=== PATIENT | female | born 1960 | race Caucasian/White ===

== ENCOUNTER → 2017-11-10 07:28 | Outpatient (CLI) | payer OTHER, SELFPAY | PROVIDERS: Family Provider Family Medicine; PCP Family Medicine; Visit Provider Nurse Practitioner Adult Health | DX: R31.9 Hematuria, unspecified (principal) | CPT/HCPCS: 74178; Q9967 ==

== ENCOUNTER → 2017-12-09 07:51 | Outpatient (CLI) | payer OTHER, SELFPAY ==
--- NOTE | 2017-12-09 07:52 | BI_ITS ---
MAMMOGRAPHY - BILATERAL SCREENING 3-D JONNIE SYNTHESIS REASON FOR EXAM: Female, 57 years old. Bilateral Screening 3-D tomosynthesis PERTINENT HISTORY: Left breast aspiration 2008. Maternal grandmother age 65. TECHNIQUE: 2-D mammograms and 3-D Jonnie synthesis of the breast (s) were performed. CAD was performed. COMPARISON: 11/30/2016 through 09/13/2014. FINDINGS: The breast composition is composed of scattered fibroglandular density. Scattered benign appearing calcifications are seen. No dense spiculated masses or suspicious microcalcification cluster are identified. No architectural distortion or asymmetric density is identified. There is no skin thickening or nipple retraction identified. There has been no significant change identified since the prior study. BI/SCREENING MAMM (CAD), BILAT IMPRESSION: No mammographic sign of malignancy. Routine yearly mammograms recommended. ASSESSMENT CATEGORY: BIRADS Category 2: Benign. A letter regarding these results will be sent to the patient by the facility within 30 days. FOLLOW UP RECOMMENDATION: Yearly follow up mammogram recommended. (A) Negative mammographic results should not deter biopsy as a palpable lesion if present should be followed based on clinical grounds and biopsy performed if clinically persistent for 3 months or increasing size. Approximately 10% of breast cancers are not detected by mammography. A normal mammogram should not delay biopsy of a clinically suspicious abnormality. Electronically Signed: Catalino Bliss, at 20:49 EDT Tel , Service support ,
== END ==
PROVIDERS: Family Provider Family Medicine; PCP Family Medicine; Visit Provider Obstetrics & Gynecology
DX: Z12.31 Encounter for screening mammogram for malignant neoplasm of breast (principal)
CPT/HCPCS: 77063; 77067

== ENCOUNTER → 2017-12-27 13:07 | Outpatient (CLI) | payer OTHER, SELFPAY ==
--- NOTE | 2017-12-27 13:12 | BD_ITS ---
STUDY: DUAL ENERGY X-RAY ABSORPTIOMETRY / DXA REASON FOR EXAM: Female, 57 years old. The patient is postmenopausal. No loss of height. TECHNIQUE: Bone Mineral Density (BMD) measurements of lumbar spine and bilateral hips were obtained. COMPARISON: Comparison is made with prior study dated August 29, 2012. FINDINGS: Lumbar Spine (L1-L4): g/cm2 (1.029) / T-score (-1.3) / Z-score (-0.1) Findings are suggestive of osteopenia with a moderate fracture risk. Left Femur Total: g/cm2 (0.796) / T-score (-1.7) / Z-score (-0.8) Left Femoral Neck: g/cm2 (0.701) / T-score (-2.4) / Z-score (-1.2) Right Femur Total: g/cm2 (0.758) / T-score (-2.0) / Z-score (-1.1) Right Femoral Neck: g/cm2 (0.738) / T-score (-2.2) / Z-score (-1.0) The T-Scores on the most recent prior examination were: Lumbar Spine (L1-L4): There has been worsening of bone density since the previous examination. Left Femur Total: which represents a worsening of 1.1%. Right Femur Total: which represents a worsening of 6.3%. BD/Dexa Bone Density Study IMPRESSION: The patient is considered osteopenic as outlined below according to World Matthew Organization (WHO) criteria with a moderate fracture risk. There has been worsening of bone density since the previous examination. Reference Information: The T-score is the number of standard deviations above or below the standard which is normal for young adults at their peak bone mineral density. The World Health Organization (WHO) interprets the T-scores as follows: Above -1 Normal bone density Between -1 and -2.5 Osteopenia Equal to / or below -2.5 Osteoporosis As a practical clinical guideline, osteopenia may be graded as follows: Mild -1 through -1.5 Moderate -1.6 through -2.0 Severe -2.1 through -2.4 The Z-score is the number of standard deviations above or below age-matched controls. A Z-score of less than -1.5 would be considered abnormal. References: 1. NIH Osteoporosis and Related Bone Diseases http://www.osteo.org 2. International Society for Clinical Densitometry http://www.iscd.org 3. National Osteoporosis Foundation http://www.nof.org Electronically Signed: Jatin Urrutia MD at 11:35 EDT Tel [phone], Service support ,
== END ==
PROVIDERS: Family Provider Family Medicine; PCP Family Medicine; Visit Provider Obstetrics & Gynecology
DX: Z13.820 Encounter for screening for osteoporosis (principal)
CPT/HCPCS: 77080

== ENCOUNTER → 2018-01-24 13:31 | Outpatient (CLI) | payer OTHER, SELFPAY ==
[2018-01-24 16:03] LABS: Vitamin D,25 Hydroxy 23.2 ng/mL (29.95-100.01)
[2018-01-24 16:04] LABS: ALB/GLOB Ratio 1.1 RATIO (0.9-2.4); AST(SGOT) 22 U/L (15-37); Alanine Aminotransfer ALT/SGPT 25 U/L (13-56); Albumin, Serum 3.6 g/dL (3.2-5.0); Alkaline Phosphatase 94 U/L (45-117); Anion Gap 10 (5-15); BUN 19 mg/dL (7-18); Calcium,Total 8.4 mg/dL (8.5-10.1); Chloride 108 mmol/L (98-107); EST Glomerular Filtration Rate 68 mL/min (>60); Est Glom Filt Rate - Afr Amer 82 mL/min (>60); Free T3 2.6 pg/mL (2.18-3.98); Globulin 3.2 g/dL (2.2-4.2); Glucose 80 mg/dL (74-106); Potassium 3.8 mmol/L (3.5-5.1); Protein, Total 6.8 g/dL (6.4-8.2); Sodium Level 142 mmol/L (136-145); T4 Free Direct 0.82 ng/dL (0.76-1.46); Thyroid Stim Hormone (TSH) 1.55 uIU/mL (0.358-3.74)
[2018-01-27 16:09] LABS: PROEL- A/G Ratio 1.5 (0.7-1.7); PROEL- Alpha-1 Globulin 0.2 g/dL (0.0-0.4); PROEL- Alpha-2 Globulin 0.7 g/dL (0.4-1.0); PROEL- Beta Globulin 1.1 g/dL (0.7-1.3); PROEL- Gamma Globulin 0.5 g/dL (0.4-1.8); PROEL- Globulin, Total 2.6 g/dL (2.2-3.9); PROEL- TOTAL PROTEIN 6.6 g/dL (6.0-8.5)
[2018-01-31 16:57] LABS: Vitamin D 1,25-Dihydroxy 53.7 pg/mL (19.9-79.3)
== END ==
PROVIDERS: Family Provider Family Medicine; PCP Family Medicine; Referring Provider Internal Medicine Endocrinology, Diabetes & Metabolism; Visit Provider Internal Medicine Endocrinology, Diabetes & Metabolism
DX: M85.852 Other specified disorders of bone density and structure, left thigh (principal); M85.851 Other specified disorders of bone density and structure, right thigh
CPT/HCPCS: 36415; 80053; 82306; 82652; 83970; 84165; 84439; 84443; 84481

== ENCOUNTER → 2018-01-27 11:03 | Outpatient (CLI) | payer OTHER, SELFPAY | PROVIDERS: Family Provider Family Medicine; PCP Family Medicine; Referring Provider Internal Medicine Endocrinology, Diabetes & Metabolism; Visit Provider Internal Medicine Endocrinology, Diabetes & Metabolism | DX: M85.851 Other specified disorders of bone density and structure, right thigh (principal); M85.852 Other specified disorders of bone density and structure, left thigh | CPT/HCPCS: 81050 ==

== ENCOUNTER → 2018-04-18 12:16 | Outpatient (CLI) | payer OTHER, SELFPAY ==
[2018-04-18 14:06] LABS: ALB/GLOB Ratio 0.8 RATIO (0.9-2.4); AST(SGOT) 17 U/L (15-37); Alanine Aminotransfer ALT/SGPT 20 U/L (13-56); Albumin, Serum 3.1 g/dL (3.2-5.0); Alkaline Phosphatase 103 U/L (45-117); Anion Gap 5 (5-15); BUN 14 mg/dL (7-18); BUN/Creat Ratio 15.4 RATIO (10-20); Calcium,Total 8.8 mg/dL (8.5-10.1); Chloride 106 mmol/L (98-107); Creatinine, Serum 0.91 mg/dL (0.55-1.02); EST Glomerular Filtration Rate 67 mL/min (>60); Est Glom Filt Rate - Afr Amer 81 mL/min (>60); Globulin 3.8 g/dL (2.2-4.2); Glucose 88 mg/dL (74-106); Protein, Total 6.9 g/dL (6.4-8.2); Sodium Level 139 mmol/L (136-145)
== END ==
PROVIDERS: Family Provider Family Medicine; PCP Family Medicine; Referring Provider Internal Medicine Endocrinology, Diabetes & Metabolism; Visit Provider Internal Medicine Endocrinology, Diabetes & Metabolism
DX: Z79.52 Long term (current) use of systemic steroids (principal)
CPT/HCPCS: 36415; 80053

== ENCOUNTER → 2018-05-09 10:37 | Outpatient (CLI) | payer OTHER, SELFPAY ==
--- NOTE | 2018-05-09 10:40 | RAD_ITS ---
STUDY: X-RAY CHEST REASON FOR EXAM: Female, 57 years old. Asthma. TECHNIQUE: PA and lateral views of the chest. COMPARISON: Comparison is made with prior study dated March 16, 2017. FINDINGS: Hyperinflation. There now is evidence of a focal infiltrate in the right middle lobe as well as in the lingular segment of the left upper lobe. Blunting of the left costophrenic angle. Normal size heart. Normal mediastinum and rojelio. Normal visualized pulmonary arteries. Normal visualized aortic arch and descending thoracic aorta. There are mild degenerative changes of the visualized thoracic spine. Normal visualized ribs, clavicles, and shoulders. There is no demonstrated abnormality of the visualized soft tissue structures of the upper abdomen. RAD/Chest PA and Lateral IMPRESSION: Right middle lobe and lingular infiltrates. Radiographic follow-up is recommended. Blunting of the left costophrenic angle. Electronically Signed: Jatin Urrutia, at 11:01 EST , Service support ,
[2018-05-09 12:34] LABS: Erythrocyte Sedimentation Rate 13 mm/hr (0-30)
== END ==
PROVIDERS: Family Provider Family Medicine; PCP Family Medicine; Referring Provider Internal Medicine Pulmonary Disease; Visit Provider Internal Medicine Pulmonary Disease
DX: J84.116 Cryptogenic organizing pneumonia (principal)
CPT/HCPCS: 36415; 71046; 85652; 86140; 86141

== ENCOUNTER → 2018-05-11 07:46 | Outpatient (CLI) | payer OTHER, SELFPAY ==
--- NOTE | 2018-05-11 07:48 | CT_ITS ---
STUDY: CT CHEST WITHOUT CONTRAST REASON FOR EXAM: Female, 57 years old. History of cryptogenic organizing pneumonia. Right middle lobe infiltrate. RADIATION DOSAGE (If Supplied By Facility): CTDIvol = ( 7.93 ) mGy, DLP = ( 301.22 ) mGycm TECHNIQUE: Transaxial imaging was performed without the administration of intravenous contrast material. Multiplanar coronal and sagittal images were reformatted. Individualized dose optimization techniques were used for this CT. COMPARISON: Comparison is made with prior study dated September 10, 2012. Comparison is also made with prior chest radiograph dated May 09, 2018. FINDINGS: Patchy areas of airspace disease is seen in the superior segment of the left lower lobe as well as in the posterior aspect of the right middle lobe and both lower lobes. Linear calcific density is seen in the left lower lobe. There is no demonstrated pleural abnormality. There are calcifications of the coronary arteries. There are multiple small lymph nodes within the mediastinum, which are normal in size and morphology most compatible with reactive lymph hyperplasia. Normal hilar regions. Normal unenhanced pulmonary arteries. There is atherosclerotic calcification of the aortic arch . There are multi-level degenerative changes of the thoracic spine. There is no demonstrated abnormality of the visualized upper abdomen. CT/Chest without Contrast IMPRESSION: Patchy areas of airspace disease in both lungs as described superimposed on the fibrocalcific scarring in the lateral aspect of the left lower lobe. The infiltrates previously seen in the right middle lobe and left lower lobe on prior examination of much improved. Electronically Signed: Jatin Urrutia, at 8:58 EST , Service support ,
== END ==
PROVIDERS: Family Provider Family Medicine; PCP Family Medicine; Referring Provider Internal Medicine Pulmonary Disease; Visit Provider Internal Medicine Pulmonary Disease
DX: J84.116 Cryptogenic organizing pneumonia (principal); R91.8 Other nonspecific abnormal finding of lung field
CPT/HCPCS: 71250

== ENCOUNTER → 2018-06-22 06:24 | Outpatient (CLI) | payer OTHER, SELFPAY ==
--- NOTE | 2018-06-22 18:01 | STRESSREP ---
Stress Test Report Date: 06/22/2018 Procedure: Exercise tolerance test/imaging study Indications: Chest pain Consent: Per the patient Procedure: The patient exercised on a Finn protocol for 6 minutes and 30 seconds completing Stage II and 30 seconds of Stage III achieving a peak heart rate of 148 bpm (91 % predicted maximal heart rate) with a peak blood pressure 178/76 mmHg and a peak MET capacity of 7 METs. The baseline ECG demonstrated normal sinus rhythm. The peak exercise ECG demonstrated no obvious ECG changes. There was a rare PVC during exercise and recovery. The functional capacity was considered decreased. There was no complaint of chest discomfort during exercise or recovery. The examination was discontinued secondary to dyspnea. Impression: 1. Technically adequate (percent predicted maximal heart rate greater than 85%) exercise tolerance test 2. Peak exercise ECG with no obvious ECG changes 3. There was a rare PVC during exercise and recovery 4. Nuclear images pending Myocardial perfusion imaging study: Technique: The patient was injected with 12 mCi of technetium 99m Cardiolite and subsequently rest SPECT Cardiolite nuclear imaging was obtained in the horizontal long, vertical long, and short axis views. The patient exercised on a Finn protocol for 6 minutes and 30 seconds completing Stage II and 30 seconds of Stage III achieving a peak heart rate of 148 bpm (91 % predicted maximal heart rate) with a peak blood pressure 178/76 mmHg and a peak MET capacity of 7 METs. The patient was injected with 36 mCi of technetium 99m Cardiolite and subsequently stress SPECT Cardiolite nuclear imaging was obtained in the horizontal long, vertical long, and short axis views. A gated Cardiolite study at peak stress was obtained. Interpretation: Rest and stress SPECT Cardiolite nuclear imaging status post realignment, normalization, and attenuation correction, demonstrates relative uniform tracer uptake and myocardial perfusion appearing within normal limits. There is end systolic thickening and brightening. The gated Cardiolite study demonstrates myocardial thickening and inward wall motion. The reported LVEF is 68 %. Impression: 1. Rest and stress SPECT Cardiolite nuclear imaging demonstrate relative uniform tracer uptake and myocardial perfusion appearing within normal limits. 2. The gated Cardiolite study reports an LVEF of the 68%. This note was generated with iSSimpleation software. It may contain incorrect words, spelling, and punctuation that were not noted in checking the note before signing.
== END ==
PROVIDERS: Family Provider Family Medicine; PCP Family Medicine; Referring Provider Family Medicine; Visit Provider Family Medicine
DX: R07.9 Chest pain, unspecified (principal); I70.90 Unspecified atherosclerosis; E78.5 Hyperlipidemia, unspecified
CPT/HCPCS: 78452; 93017; A9500; A4216

== ENCOUNTER → 2018-06-26 | Outpatient (CLI) | payer OTHER, SELFPAY ==
--- NOTE | 2018-06-26 09:01 | RAD_ITS ---
STUDY: X-RAY CHEST REASON FOR EXAM: Female, 57 years old. History of pneumonia. Patient states still having shortness of breath and chest pains since April. TECHNIQUE: PA and lateral views of the chest. COMPARISON: May 09, 2018. FINDINGS: The lungs are clear and expanded. Previously identified consolidations within the right middle lobe and the superior segment of the left lower lobe/lingula have resolved. The lungs now appear clear. There is no pleural effusion. There is no pneumothorax. Normal size heart. Normal mediastinum and rojelio. Normal visualized pulmonary arteries. There is atherosclerotic calcification of the aortic arch with tortuosity. There is no evident acute osseous abnormality. There is no demonstrated abnormality of the visualized soft tissue structures of the upper abdomen. RAD/Chest PA and Lateral IMPRESSION: No radiographically evident acute cardiopulmonary disease. Atherosclerotic peripheral vascular disease. Electronically Signed: Sundeep Hernandez MD at 14:00 EDT , Service support ,
[2018-06-26 10:44] LABS: CRP < 2.90 mg/L (0.0-3.0)
== END | disposition home or self-care (01) ==
LOC: MTLAB 08:29
PROVIDERS: Family Provider Family Medicine; PCP Family Medicine; Referring Provider Internal Medicine Pulmonary Disease; Visit Provider Internal Medicine Pulmonary Disease
DX: J84.116 Cryptogenic organizing pneumonia (principal)
CPT/HCPCS: 36415; 71046; 86140

== ENCOUNTER → 2018-06-30 | Outpatient (CLI) | payer OTHER, SELFPAY ==
[2018-06-30 14:50] LABS: Hematocrit 43.9 % (37-47); Hemoglobin 13.3 g/dl (12.0-15.0); Mean Corp Hgb Conc 30.3 g/gl (32-36); Mean Corpuscular Hgb 26.7 pg (27.0-32.0); Platelet Count 189 K/mm3 (150-450); RBC Distribution Width CV 17.1 % (11.6-14.6); RBC Distribution Width SD 55.1 fl (35.1-43.9); Red Blood Count 4.99 M/mm3 (4.2-5.4); White Blood Count 11.5 K/mm3 (4.4-11.0)
[2018-06-30 14:56] LABS: Scan Indicated on CBC? Y/N NO
[2018-06-30 15:32] LABS: AST(SGOT) 28 U/L (15-37); Alanine Aminotransfer ALT/SGPT 36 U/L (13-56); Albumin, Serum 3.7 g/dL (3.2-5.0); Alkaline Phosphatase 123 U/L (45-117); Bilirubin, Direct 0.07 mg/dL (0.00-0.30); Globulin 3.2 g/dL (2.2-4.2); Protein, Total 6.9 g/dL (6.4-8.2)
== END | disposition home or self-care (01) ==
PROVIDERS: Family Provider Family Medicine; PCP Family Medicine; Referring Provider Internal Medicine Pulmonary Disease; Visit Provider Internal Medicine Pulmonary Disease
DX: J84.116 Cryptogenic organizing pneumonia (principal)
CPT/HCPCS: 36415; 80076; 85027; 86480

== ENCOUNTER → 2018-07-21 | Outpatient (CLI) | payer OTHER, SELFPAY ==
[2018-07-21 12:21] LABS: BUN 23 mg/dL (7-18); Glucose 82 mg/dL (74-106)
[2018-07-21 12:22] LABS: ALB/GLOB Ratio 1.2 RATIO (0.9-2.4); AST(SGOT) 27 U/L (15-37); Alanine Aminotransfer ALT/SGPT 36 U/L (13-56); Albumin, Serum 3.5 g/dL (3.2-5.0); Alkaline Phosphatase 102 U/L (45-117); Anion Gap 5 (5-15); BUN/Creat Ratio 25.4 RATIO (10-20); Calcium,Total 8.6 mg/dL (8.5-10.1); Chloride 109 mmol/L (98-107); EST Glomerular Filtration Rate 68 mL/min (>60); Est Glom Filt Rate - Afr Amer 82 mL/min (>60); Globulin 2.9 g/dL (2.2-4.2); Magnesium 2.4 mg/dL (1.6-2.6); Potassium 3.7 mmol/L (3.5-5.1); Protein, Total 6.4 g/dL (6.4-8.2); Sodium Level 143 mmol/L (136-145)
== END | disposition home or self-care (01) ==
LOC: LAB 10:51
PROVIDERS: Family Provider Family Medicine; PCP Family Medicine; Referring Provider Internal Medicine Endocrinology, Diabetes & Metabolism; Visit Provider Internal Medicine Endocrinology, Diabetes & Metabolism
DX: E21.3 Hyperparathyroidism, unspecified (principal); E55.9 Vitamin D deficiency, unspecified
CPT/HCPCS: 36415; 80053; 82306; 83735; 83970

== ENCOUNTER → 2018-08-01 | Outpatient (CLI) | payer OTHER, SELFPAY ==
[2018-08-01 11:55] LABS: Hematocrit 43.3 % (37-47); Hemoglobin 13.5 g/dl (12.0-15.0); Mean Corp Hgb Conc 31.2 g/gl (32-36); Mean Corpuscular Hgb 27.3 pg (27.0-32.0); Mean Corpuscular Volume 87.5 fL (81-99); Mean Platelet Vol. 10.1 fl (6.2-12.0); Platelet Count 161 K/mm3 (150-450); RBC Distribution Width SD 54.5 fl (35.1-43.9); Red Blood Count 4.95 M/mm3 (4.2-5.4); White Blood Count 12.7 K/mm3 (4.4-11.0)
[2018-08-01 12:01] LABS: Scan Indicated on CBC? Y/N NO
[2018-08-01 12:27] LABS: AST(SGOT) 23 U/L (15-37); Alanine Aminotransfer ALT/SGPT 33 U/L (13-56); Albumin, Serum 3.3 g/dL (3.2-5.0); Alkaline Phosphatase 83 U/L (45-117); Globulin 2.9 g/dL (2.2-4.2); Protein, Total 6.2 g/dL (6.4-8.2)
== END | disposition home or self-care (01) ==
LOC: LAB 10:48
PROVIDERS: Family Provider Family Medicine; PCP Family Medicine; Referring Provider Internal Medicine Pulmonary Disease; Visit Provider Internal Medicine Pulmonary Disease
DX: J84.116 Cryptogenic organizing pneumonia (principal)
CPT/HCPCS: 36415; 80076; 85027

== ENCOUNTER 2018-09-01 09:36 | Outpatient (RCR) | payer OTHER, SELFPAY ==
[2018-09-01 10:13] LABS: Hematocrit 41.6 % (37-47); Hemoglobin 12.7 g/dl (12.0-15.0); Mean Corp Hgb Conc 30.5 g/gl (32-36); Mean Corpuscular Hgb 27.5 pg (27.0-32.0); Mean Corpuscular Volume 90.2 fL (81-99); Mean Platelet Vol. 9.6 fl (6.2-12.0); Platelet Count 237 K/mm3 (150-450); RBC Distribution Width CV 16.1 % (11.6-14.6); RBC Distribution Width SD 53.7 fl (35.1-43.9); Red Blood Count 4.61 M/mm3 (4.2-5.4); White Blood Count 2.1 K/mm3 (4.4-11.0)
[2018-09-01 10:45] LABS: AST(SGOT) 51 U/L (15-37); Alanine Aminotransfer ALT/SGPT 113 U/L (13-56); Albumin, Serum 3.1 g/dL (3.2-5.0); Alkaline Phosphatase 262 U/L (45-117); BUN 19 mg/dL (7-18); Bilirubin, Direct 0.08 mg/dL (0.00-0.30); Creatinine, Serum 0.88 mg/dL (0.55-1.02); EST Glomerular Filtration Rate 70 mL/min (>60); Est Glom Filt Rate - Afr Amer 85 mL/min (>60); Globulin 3.4 g/dL (2.2-4.2); Protein, Total 6.5 g/dL (6.4-8.2)
[2018-09-01 11:52] LABS: POSITIVE COUNT NO; POSITIVE DIFFERENTIAL YES; POSITIVE MORPHOLOGY NO
[2018-09-01 11:53] LABS: Absolute Lymphocyte Count 1.18 X10^3/ul (0.83-4.51); Basophil# 0.02 X10^3/uL; Basophil% 0.9 % (0-1); Differential Indicated SCAN CRITERIA MET; Eosinophil# 0.06 X10^3/uL; Eosinophils% 2.7 % (0-5); Lymphocyte # 1.18 X10^3/ul (4.0); Lymphocyte % 53.2 % (19-41); Monocyte# 0.96 X10^3/uL; Monocyte% 43.2 % (0-10)
[2018-09-01 12:11] LABS: Differential Comment SCANNED
== END 2018-09-03 12:00 | disposition home or self-care (01) ==
LOC: LAB 09:36
PROVIDERS: Family Provider Family Medicine; PCP Family Medicine; Referring Provider Internal Medicine Pulmonary Disease; Visit Provider Internal Medicine Pulmonary Disease
DX: J84.116 Cryptogenic organizing pneumonia (principal); J45.909 Unspecified asthma, uncomplicated; R07.9 Chest pain, unspecified
CPT/HCPCS: 36415; 80076; 82565; 84520; 85025

== ENCOUNTER → 2018-09-18 | Outpatient (CLI) | payer OTHER, SELFPAY ==
[2018-09-18 12:46] LABS: Erythrocyte Sedimentation Rate 13 mm/hr (0-30)
[2018-09-18 12:48] LABS: Absolute Lymphocyte Count 2.88 X10^3/ul (0.83-4.51); Basophil# 0.03 X10^3/uL; Basophil% 0.3 % (0-1); Hematocrit 42.5 % (37-47); Hemoglobin 13.1 g/dl (12.0-15.0); Lymphocyte # 2.88 X10^3/ul (4.0); Lymphocyte % 26.4 % (19-41); Mean Corp Hgb Conc 30.8 g/gl (32-36); Mean Corpuscular Hgb 27.8 pg (27.0-32.0); Mean Platelet Vol. 10.4 fl (6.2-12.0); Monocyte# 0.91 X10^3/uL; Monocyte% 8.3 % (0-10); Neutrophil # 6.99 X10^3/uL (2.7-7.7); Platelet Count 154 K/mm3 (150-450); RBC Distribution Width CV 16.1 % (11.6-14.6); RBC Distribution Width SD 52.9 fl (35.1-43.9); Red Blood Count 4.72 M/mm3 (4.2-5.4); White Blood Count 10.9 K/mm3 (4.4-11.0)
[2018-09-18 12:50] LABS: POSITIVE COUNT NO; POSITIVE DIFFERENTIAL NO; POSITIVE MORPHOLOGY NO
[2018-09-18 13:06] LABS: AST(SGOT) 35 U/L (15-37); Alanine Aminotransfer ALT/SGPT 145 U/L (13-56); Albumin, Serum 3.2 g/dL (3.2-5.0); Alkaline Phosphatase 172 U/L (45-117); BUN 15 mg/dL (7-18); Bilirubin, Direct 0.08 mg/dL (0.00-0.30); Protein, Total 6.2 g/dL (6.4-8.2)
== END | disposition home or self-care (01) ==
LOC: LAB 11:26
PROVIDERS: Family Provider Family Medicine; PCP Family Medicine; Referring Provider Internal Medicine Pulmonary Disease; Visit Provider Internal Medicine Pulmonary Disease
DX: J84.116 Cryptogenic organizing pneumonia (principal); J45.909 Unspecified asthma, uncomplicated; R07.9 Chest pain, unspecified
CPT/HCPCS: 36415; 80076; 84520; 85025; 85652

== ENCOUNTER 2018-10-04 11:13 | Outpatient (RCR) | payer OTHER, SELFPAY ==
[2018-09-08 08:48] LABS: Hematocrit 43.1 % (37-47); Hemoglobin 13.4 g/dl (12.0-15.0); Mean Corp Hgb Conc 31.1 g/gl (32-36); Mean Corpuscular Hgb 27.6 pg (27.0-32.0); Mean Corpuscular Volume 88.7 fL (81-99); Mean Platelet Vol. 9.4 fl (6.2-12.0); Platelet Count 221 K/mm3 (150-450); RBC Distribution Width CV 15.9 % (11.6-14.6); RBC Distribution Width SD 51.6 fl (35.1-43.9); Red Blood Count 4.86 M/mm3 (4.2-5.4)
[2018-09-08 08:55] LABS: Differential Indicated MANUAL DIFF; POSITIVE COUNT YES; POSITIVE DIFFERENTIAL NO; POSITIVE MORPHOLOGY YES
[2018-09-08 09:46] LABS: Lymphocyte 32 % (19-41); Metamyelocyte 11 % (0-1); Monocyte 8 % (0-10); Myelocyte 6 (0-0); Neutrophil-Band 11 % (0-5); Neutrophil-Segmented 32 % (47-70); Nucleated Red Bld Cells,Manual 1 % (0-5); Total Cells Counted 100 (MANUAL DIFF)
[2018-09-08 09:47] LABS: Platelet Estimate ADEQUATE (ADEQ)
[2018-09-08 09:49] LABS: Absolute Lymphocyte Count 2.24 X10^3/ul (0.83-4.51); Lymphocyte # 2.24 X10^3/ul (4.0); Neutrophil # 3.01 X10^3/uL (2.7-7.7)
[2018-09-12 09:53] LABS: Pathologist Review Reviewed
--- NOTE | 2018-10-04 11:39 | RAD_ITS ---
STUDY: X-RAY CHEST REASON FOR EXAM: Female, 57 years old. Cryptogenic organizing pneumonia. TECHNIQUE: PA and lateral views of the chest. COMPARISON: PA and lateral chest x-ray June 26, 2018. FINDINGS: A suture line is again seen in the left lung base. The lungs are otherwise clear and expanded. There is no demonstrated pleural abnormality. Normal size heart. Normal mediastinum and rojelio. Normal visualized pulmonary arteries. There is stable mild atherosclerotic calcification of the aortic arch. There are stable early degenerative changes of the visualized mid thoracic spine. Normal visualized ribs, clavicles, and shoulders. There is no demonstrated abnormality of the visualized soft tissue structures of the upper abdomen. RAD/Chest PA and Lateral IMPRESSION: Postsurgical change again noted in the left lung base. No acute cardiopulmonary disease. Electronically Signed: Sen Stern MD at 12:06 EDT , Service support ,
[2018-10-04 12:12] LABS: Absolute Lymphocyte Count 1.38 X10^3/uL (0.83-4.51); Absolute Neutrophil Count 6.7 X10^3/uL (2.0-7.7); Basophil# 0.02 X10^3/uL; Basophil% 0.2 % (0-1); Hematocrit 44.3 % (37-47); Hemoglobin 13.7 g/dL (12.0-15.0); Lymphocyte # 1.38 X10^3/ul (4.0); Lymphocyte % 16.2 % (19-41); Mean Corp Hgb Conc 30.9 g/dL (32-36); Mean Corpuscular Hgb 28.1 pg (27.0-32.0); Mean Platelet Vol. 10.2 fl (6.2-12.0); Monocyte# 0.38 X10^3/uL; Monocyte% 4.4 % (0-10); NRBC Flagged by Analyzer 0 % (0-5); Neutrophil # 6.69 X10^3/uL (2.7-7.7); Neutrophil % 78.4 % (47-70); Platelet Count 215 K/mm3 (150-450); RBC Distribution Width CV 15.9 % (11.6-14.6); RBC Distribution Width SD 53.1 fl (35.1-43.9); Red Blood Count 4.87 M/mm3 (4.2-5.4); White Blood Count 8.5 K/mm3 (4.4-11.0)
[2018-10-04 13:01] LABS: AST(SGOT) 28 U/L (15-37); Alanine Aminotransfer ALT/SGPT 34 U/L (13-56); Albumin, Serum 3.5 g/dL (3.2-5.0); Alkaline Phosphatase 78 U/L (45-117); BUN 20 mg/dL (7-18); Bilirubin, Direct 0.12 mg/dL (0.00-0.30); Creatinine, Serum 0.95 mg/dL (0.55-1.02); EST Glomerular Filtration Rate 64 mL/min (>60); Est Glom Filt Rate - Afr Amer 77 mL/min (>60); Globulin 2.9 g/dL (2.2-4.2); Protein, Total 6.4 g/dL (6.4-8.2)
== END 2018-10-04 17:24 | disposition home or self-care (01) ==
LOC: LAB 11:13
PROVIDERS: Family Provider Family Medicine; PCP Family Medicine; Referring Provider Internal Medicine Pulmonary Disease; Visit Provider Internal Medicine Pulmonary Disease
DX: Z79.899 Other long term (current) drug therapy (principal); D72.819 Decreased white blood cell count, unspecified; J84.116 Cryptogenic organizing pneumonia
CPT/HCPCS: 36415; 71046; 80076; 82565; 84520; 85025

== ENCOUNTER → 2018-11-10 09:48 | Outpatient (CLI) | payer OTHER, SELFPAY ==
[2018-11-10 10:43] LABS: Absolute Lymphocyte Count 2.74 X10^3/uL (0.83-4.51); Absolute Neutrophil Count 8.6 X10^3/uL (2.0-7.7); Basophil# 0.04 X10^3/uL; Basophil% 0.3 % (0-1); Eosinophils% 0.8 % (0-5); Hematocrit 45.2 % (37-47); Hemoglobin 13.7 g/dL (12.0-15.0); Lymphocyte # 2.74 X10^3/ul (4.0); Lymphocyte % 22.2 % (19-41); Mean Corp Hgb Conc 30.3 g/dL (32-36); Mean Corpuscular Hgb 28.1 pg (27.0-32.0); Mean Corpuscular Volume 92.6 fL (81-99); Monocyte# 0.78 X10^3/uL; Monocyte% 6.3 % (0-10); NRBC Flagged by Analyzer 0 % (0-5); Neutrophil # 8.56 X10^3/uL (2.7-7.7); Neutrophil % 69.3 % (47-70); Platelet Count 170 K/mm3 (150-450); RBC Distribution Width CV 15.4 % (11.6-14.6); RBC Distribution Width SD 53.1 fl (35.1-43.9); Red Blood Count 4.88 M/mm3 (4.2-5.4); White Blood Count 12.4 K/mm3 (4.4-11.0)
[2018-11-10 11:43] LABS: AST(SGOT) 26 U/L (15-37); Alanine Aminotransfer ALT/SGPT 30 U/L (13-56); Albumin, Serum 3.4 g/dL (3.2-5.0); Alkaline Phosphatase 98 U/L (45-117); Anion Gap 7 (5-15); BUN 14 mg/dL (7-18); BUN/Creat Ratio 15.2 RATIO (10-20); Bilirubin, Direct < 0.05 mg/dL (0.00-0.30); Calcium,Total 8.6 mg/dL (8.5-10.1); Chloride 106 mmol/L (98-107); Creatinine, Serum 0.92 mg/dL (0.55-1.02); EST Glomerular Filtration Rate 66 mL/min (>60); Est Glom Filt Rate - Afr Amer 80 mL/min (>60); Globulin 3.3 g/dL (2.2-4.2); Glucose 103 mg/dL (74-106); Potassium 3.6 mmol/L (3.5-5.1); Protein, Total 6.7 g/dL (6.4-8.2); Sodium Level 142 mmol/L (136-145); T3 Uptake 36 % (30-39); T4 Free Direct 0.77 ng/dL (0.76-1.46); T4 Total, Thyroxin 7.4 ug/dL (4.8-13.9); T7 / Free Thyroxin Index 2.7 (1.4-4.5); Thyroid Stim Hormone (TSH) 0.96 uIU/mL (0.358-3.74)
[2018-11-10 13:21] LABS: HIV - WCH Non-Reactive (Nonreactive); Hepatitis C Antibody Non-Reactive (Nonreactive)
[2018-11-13 16:07] LABS: SJOGREN'S Anti-SS-A test < 0.2 AI (0.0-0.9); SJOGREN'S Anti-SS-B test < 0.2 AI (0.0-0.9)
[2018-11-14 10:01] LABS: Anti-Nuclear Antibody Test Negative (.)
[2018-11-14 16:08] LABS: Immunoglobulin A 148 mg/dL (87-352); Immunoglobulin E < 2 IU/mL (6-495); Immunoglobulin G 545 mg/dL (700-1600); Immunoglobulin M 81 mg/dL (26-217); PROEL- A/G Ratio 1.4 (0.7-1.7); PROEL- Albumin 3.6 g/dL (2.9-4.4); PROEL- Alpha-1 Globulin 0.2 g/dL (0.0-0.4); PROEL- Alpha-2 Globulin 0.7 g/dL (0.4-1.0); PROEL- Gamma Globulin 0.5 g/dL (0.4-1.8); PROEL- Globulin, Total 2.5 g/dL (2.2-3.9); PROEL- TOTAL PROTEIN 6.1 g/dL (6.0-8.5); PROELU- Albumin, Urine 35.4 % (.); PROELU- Alpha-1-Globulin,Ur 8.4 % (.); PROELU- Alpha-2-Globulin,Ur 23.6 % (.); PROELU- Beta Globulin, Ur 24.2 % (.); PROELU- Gamma Globulin, Ur 8.4 % (.); Total Protein, Ur 7.1 mg/dL (Not Estab.)
[2018-11-15 12:19] LABS: Immunofixation Result, Serum Comment: (.); t-Transglutaminase IgA <2 U/mL (0-3)
== END ==
PROVIDERS: Family Provider Family Medicine; PCP Family Medicine; Referring Provider Dermatology; Visit Provider Dermatology
DX: L29.8 Other pruritus (principal)
CPT/HCPCS: 36415; 80048; 80076; 82784; 82785; 83516; 84165; 84166; 84436; 84439; 84443; 84479; 85025; 86038; 86235; 86334; 86703; 86803

== ENCOUNTER → 2018-12-11 | Outpatient (CLI) | payer OTHER, SELFPAY ==
--- NOTE | 2018-12-11 11:33 | BI_ITS ---
BILATERAL DIGITAL MAMMOGRAM WITH TOMOSYNTHESIS: Mediolateraloblique and craniocaudal views demonstrate no evidence of dominant parenchymal masses. No cluster of microcalcification or architectural distortion is seen. There appears to be an intramammary lymph node noted in the lateral aspect of the left breast which was previously identified and is unchanged. No evidence of skin thickening. No significant change since 12/09/2017. Breast Density: There are scattered areas of fibroglandular density. CAD was used to assist in final assessment. IMPRESSION: NORMAL MAMMOGRAM BILATERALLY. FINAL ASSESSMENT: BIRAD 1 (NEGATIVE) YEARLY MAMMOGRAM RECOMMENDED . Electronically Signed: Lorenzo Law, at 16:48 EDT Tel , Service support , BI/SCREEN MAMM (CAD) W/JONNIE ZEE
== END | disposition home or self-care (01) ==
LOC: OPBI 11:31
PROVIDERS: Family Provider Family Medicine; PCP Family Medicine; Referring Provider Obstetrics & Gynecology; Visit Provider Obstetrics & Gynecology
DX: Z12.31 Encounter for screening mammogram for malignant neoplasm of breast (principal)
CPT/HCPCS: 77063; 77067

== ENCOUNTER → 2018-12-13 16:45 | Outpatient (CLI) | payer OTHER, SELFPAY ==
--- NOTE | 2018-12-13 16:50 | RAD_ITS ---
STUDY: X-RAY - PELVIS AND RIGHT HIP REASON FOR EXAM: Female, 58 years old. Right hip pain. TECHNIQUE: 3 views of the pelvis and hip. COMPARISON: CT scan 11/10/2017. FINDINGS: There is a non-specific bowel gas pattern. Stable small linear metal foreign body in the lower right pelvis also seen on the CT scan. Normal bilateral iliac wings, sacroiliac joints and visualized sacrum. Normal bilateral superior and inferior pubic rami. Normal pubic symphysis. Normal bilateral ischial tuberosities. Normal visualized femoral head. Normal acetabulum. Normal hip joint. RAD/HIP, UNI W/ Pelvis 2-3 Views IMPRESSION: Normal x-ray examination of the pelvis and hip. Electronically Signed: Malik Juares MD at 23:37 EDT , Service support ,
--- NOTE | 2018-12-13 16:50 | RAD_ITS ---
STUDY: X-RAY - LUMBAR SPINE REASON FOR EXAM: Female, 58 years old. Right hip pain. TECHNIQUE: 5 view(s) of the lumbar spine were obtained. COMPARISON: None FINDINGS: Normal lumbar lordosis. There is no substantial scoliosis. There is a normal alignment of the vertebrae. Normal vertebral bodies and endplates. Normal disc space heights. There is no demonstrated fracture. The soft tissue structures are unremarkable. RAD/L/S Spine Min 4 Views IMPRESSION: Normal x-ray examination of the lumbar spine. Electronically Signed: Malik Juares MD at 23:47 EDT , Service support ,
== END ==
PROVIDERS: Family Provider Family Medicine; PCP Family Medicine; Referring Provider Family Medicine; Visit Provider Family Medicine
DX: M25.551 Pain in right hip (principal)
CPT/HCPCS: 72110; 73502

== ENCOUNTER → 2019-01-05 09:58 | Outpatient (CLI) | payer OTHER, SELFPAY ==
[2019-01-05 11:01] LABS: ALB/GLOB Ratio 1.1 RATIO (0.9-2.4); AST(SGOT) 24 U/L (15-37); Alanine Aminotransfer ALT/SGPT 31 U/L (13-56); Albumin, Serum 3.4 g/dL (3.2-5.0); Alkaline Phosphatase 92 U/L (45-117); Anion Gap 9 (5-15); BUN 18 mg/dL (7-18); BUN/Creat Ratio 17.5 RATIO (10-20); Calcium,Total 8.8 mg/dL (8.5-10.1); Chloride 106 mmol/L (98-107); Creatinine, Serum 1.03 mg/dL (0.55-1.02); EST Glomerular Filtration Rate 58 mL/min (>60); Est Glom Filt Rate - Afr Amer 70 mL/min (>60); Globulin 3.2 g/dL (2.2-4.2); Glucose 136 mg/dL (74-106); Phosphorus 3.3 mg/dL (2.5-4.9); Potassium 3.6 mmol/L (3.5-5.1); Protein, Total 6.6 g/dL (6.4-8.2); Sodium Level 141 mmol/L (136-145)
[2019-01-05 11:09] LABS: Vitamin D,25 Hydroxy 68.1 ng/mL (29.95-100.01)
[2019-01-05 11:10] LABS: PTHIN 59.6 pg/mL (18.4-80.1)
== END ==
PROVIDERS: Family Provider Family Medicine; PCP Family Medicine; Referring Provider Internal Medicine Endocrinology, Diabetes & Metabolism; Visit Provider Internal Medicine Endocrinology, Diabetes & Metabolism
DX: E21.3 Hyperparathyroidism, unspecified (principal); E55.9 Vitamin D deficiency, unspecified; M81.0 Age-related osteoporosis without current pathological fracture
CPT/HCPCS: 36415; 80053; 82306; 82330; 83970; 84100

== ENCOUNTER 2019-01-30 12:07 | Outpatient (RCR) | payer OTHER, SELFPAY ==
[2019-01-30 13:49] LABS: Hematocrit 42.8 % (37-47); Hemoglobin 13.1 g/dL (12.0-15.0); Mean Corp Hgb Conc 30.6 g/dL (32-36); Mean Corpuscular Hgb 28.2 pg (27.0-32.0); Platelet Count 194 K/mm3 (150-450); RBC Distribution Width CV 15.4 % (11.6-14.6); RBC Distribution Width SD 52.4 fl (35.1-43.9); Red Blood Count 4.65 M/mm3 (4.2-5.4); White Blood Count 10.3 K/mm3 (4.4-11.0)
[2019-01-30 14:21] LABS: AST(SGOT) 27 U/L (15-37); Alanine Aminotransfer ALT/SGPT 29 U/L (13-56); Albumin, Serum 3.3 g/dL (3.2-5.0); Alkaline Phosphatase 89 U/L (45-117); BUN 20 mg/dL (7-18); Protein, Total 6.3 g/dL (6.4-8.2)
== END 2019-01-30 18:00 | disposition home or self-care (01) ==
LOC: LAB 12:07
PROVIDERS: Family Provider Family Medicine; PCP Family Medicine; Referring Provider Internal Medicine Pulmonary Disease; Visit Provider Internal Medicine Pulmonary Disease
DX: J84.116 Cryptogenic organizing pneumonia (principal); J45.909 Unspecified asthma, uncomplicated
CPT/HCPCS: 36415; 80076; 84520; 85027

== ENCOUNTER 2019-02-12 09:48 | Outpatient (RCR) | payer OTHER, SELFPAY ==
[2019-02-12 10:35] LABS: Hematocrit 44.6 % (37-47); Hemoglobin 13.6 g/dL (12.0-15.0); Mean Corp Hgb Conc 30.5 g/dL (32-36); Mean Corpuscular Hgb 28.1 pg (27.0-32.0); Mean Corpuscular Volume 92.1 fL (81-99); Mean Platelet Vol. 10.1 fl (6.2-12.0); Platelet Count 167 K/mm3 (150-450); RBC Distribution Width CV 14.9 % (11.6-14.6); RBC Distribution Width SD 51.3 fl (35.1-43.9); Red Blood Count 4.84 M/mm3 (4.2-5.4); White Blood Count 10.2 K/mm3 (4.4-11.0)
[2019-02-12 11:01] LABS: AST(SGOT) 22 U/L (15-37); Alanine Aminotransfer ALT/SGPT 27 U/L (13-56); Albumin, Serum 3.3 g/dL (3.2-5.0); Alkaline Phosphatase 78 U/L (45-117); BUN 17 mg/dL (7-18); Bilirubin, Direct 0.08 mg/dL (0.00-0.30); Globulin 2.9 g/dL (2.2-4.2); Protein, Total 6.2 g/dL (6.4-8.2)
== END 2019-02-12 18:00 | disposition home or self-care (01) ==
LOC: LAB 09:48
PROVIDERS: Family Provider Family Medicine; PCP Family Medicine; Referring Provider Internal Medicine Pulmonary Disease; Visit Provider Internal Medicine Pulmonary Disease
DX: J84.116 Cryptogenic organizing pneumonia (principal); J45.909 Unspecified asthma, uncomplicated
CPT/HCPCS: 36415; 80076; 84520; 85027

== ENCOUNTER → 2019-03-01 12:55 | Outpatient (CLI) | payer OTHER, SELFPAY ==
--- NOTE | 2019-03-01 12:57 | BD_ITS ---
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 COMPARISON: Comparison is made with prior study dated December 27, 2017. FINDINGS: Lumbar Spine (L1-L4): g/cm2 (1.055) / T-score (-1.0) / Z-score (0 point) Findings are suggestive of normal bone density with a low fracture risk. Left Femur Total: g/cm2 (0.768) / T-score (-1.9) / Z-score (-1.0) Left Femoral Neck: g/cm2 (0.701) / T-score (-2.4) / Z-score (-1.2) Right Femur Total: g/cm2 (0.767) / T-score (-1.9) / Z-score (-1.0) Right Femoral Neck: g/cm2 (0.739) / T-score (-2.1) / Z-score (-0.9) The T-Scores on the most recent prior examination were: Lumbar Spine (L1-L4): There has been improvement of bone density since the previous examination. Left Femur Total: which represents a worsening of 3.5%. Right Femur Total: which represents an improvement of 1.2%. BD/Dexa Bone Density Study IMPRESSION: The patient is considered osteopenic as outlined below according to World Matthew Organization (WHO) criteria with a high fracture risk. There has been improvement of bone density since the previous examination. Reference Information: The T-score is the number of standard deviations above or below the standard which is normal for young adults at their peak bone mineral density. The World Health Organization (WHO) interprets the T-scores as follows: Above -1 Normal bone density Between -1 and -2.5 Osteopenia Equal to / or below -2.5 Osteoporosis As a practical clinical guideline, osteopenia may be graded as follows: Mild -1 through -1.5 Moderate -1.6 through -2.0 Severe -2.1 through -2.4 The Z-score is the number of standard deviations above or below age-matched controls. A Z-score of less than -1.5 would be considered abnormal. References: 1. NIH Osteoporosis and Related Bone Diseases http://www.osteo.org 2. International Society for Clinical Densitometry http://www.iscd.org 3. National Osteoporosis Foundation http://www.nof.org Electronically Signed: Jatin Urrutia, at 21:04 EST , Service support ,
== END ==
PROVIDERS: Family Provider Family Medicine; PCP Family Medicine; Referring Provider Internal Medicine Endocrinology, Diabetes & Metabolism; Visit Provider Internal Medicine Endocrinology, Diabetes & Metabolism
DX: M81.0 Age-related osteoporosis without current pathological fracture (principal)
CPT/HCPCS: 77080

== ENCOUNTER 2019-04-09 12:11 | Outpatient (RCR) | payer OTHER, SELFPAY ==
[2019-04-09 11:13] LABS: Hematocrit 44.6 % (37-47); Hemoglobin 13.2 g/dL (12.0-15.0); Mean Corp Hgb Conc 29.6 g/dL (32-36); Mean Corpuscular Hgb 27.2 pg (27.0-32.0); Mean Corpuscular Volume 91.8 fL (81-99); Mean Platelet Vol. 10.2 fl (6.2-12.0); Platelet Count 227 K/mm3 (150-450); RBC Distribution Width CV 15.2 % (11.6-14.6); RBC Distribution Width SD 51.2 fl (35.1-43.9); Red Blood Count 4.86 M/mm3 (4.2-5.4); White Blood Count 8.5 K/mm3 (4.4-11.0)
[2019-04-09 11:48] LABS: AST(SGOT) 27 U/L (15-37); Alanine Aminotransfer ALT/SGPT 31 U/L (13-56); Albumin, Serum 3.5 g/dL (3.2-5.0); Alkaline Phosphatase 86 U/L (45-117); BUN 16 mg/dL (7-18); Bilirubin, Direct 0.06 mg/dL (0.00-0.30); Globulin 3.1 g/dL (2.2-4.2); Protein, Total 6.6 g/dL (6.4-8.2)
== END 2019-04-09 18:00 | disposition home or self-care (01) ==
LOC: LAB 12:11
PROVIDERS: Family Provider Family Medicine; PCP Family Medicine; Referring Provider Internal Medicine Pulmonary Disease; Visit Provider Internal Medicine Pulmonary Disease
DX: J84.116 Cryptogenic organizing pneumonia (principal); J45.909 Unspecified asthma, uncomplicated
CPT/HCPCS: 36415; 80076; 84520; 85027

== ENCOUNTER 2019-05-08 10:39 | Outpatient (RCR) | payer OTHER, SELFPAY ==
[2019-05-08 11:38] LABS: Erythrocyte Sedimentation Rate 16 mm/hr (0-30)
[2019-05-08 11:40] LABS: Hematocrit 45.3 % (37-47); Hemoglobin 13.9 g/dL (12.0-15.0); Mean Corp Hgb Conc 30.7 g/dL (32-36); Mean Corpuscular Volume 91.3 fL (81-99); Mean Platelet Vol. 10.1 fl (6.2-12.0); Platelet Count 180 K/mm3 (150-450); RBC Distribution Width CV 15.7 % (11.6-14.6); RBC Distribution Width SD 51.2 fl (35.1-43.9); Red Blood Count 4.96 M/mm3 (4.2-5.4); White Blood Count 10.6 K/mm3 (4.4-11.0)
[2019-05-08 12:00] LABS: AST(SGOT) 27 U/L (15-37); Alanine Aminotransfer ALT/SGPT 33 U/L (13-56); Albumin, Serum 3.4 g/dL (3.2-5.0); Alkaline Phosphatase 66 U/L (45-117); BUN 16 mg/dL (7-18); CRP < 2.90 mg/L (0.0-3.0); Globulin 3.1 g/dL (2.2-4.2); Protein, Total 6.5 g/dL (6.4-8.2)
== END 2019-05-08 18:00 | disposition home or self-care (01) ==
LOC: LAB 10:39
PROVIDERS: Family Provider Family Medicine; PCP Family Medicine; Referring Provider Internal Medicine Pulmonary Disease; Visit Provider Internal Medicine Pulmonary Disease
DX: J84.116 Cryptogenic organizing pneumonia (principal); J45.909 Unspecified asthma, uncomplicated
CPT/HCPCS: 36415; 80076; 84520; 85027; 85652; 86140

== ENCOUNTER → 2019-06-01 11:11 | Outpatient (CLI) | payer OTHER, SELFPAY | PROVIDERS: PCP Family Medicine; Referring Provider Internal Medicine Pulmonary Disease; Visit Provider Internal Medicine Pulmonary Disease | DX: M79.10 Myalgia, unspecified site (principal); M25.50 Pain in unspecified joint | CPT/HCPCS: 36415 ==

== ENCOUNTER → 2019-06-05 10:29 | Outpatient (CLI) | payer OTHER, SELFPAY ==
--- NOTE | 2019-06-05 10:32 | RAD_ITS ---
STUDY: X-RAY CHEST REASON FOR EXAM: Female, 58 years old. Cryptogenic organizing pneumonia -- pt also has a cough, fever, and chest pain TECHNIQUE: PA and lateral views of the chest. COMPARISON: Comparison is made with prior examination dated October 04, 2018. FINDINGS: Hyperinflation. Stable increased markings at the left lung base suggests some mild scarring. A suture line is seen in the left lung base secondary to prior biopsy. Scattered calcified granulomas. There is no demonstrated pleural abnormality. Normal size heart. Normal mediastinum and rojelio. Normal visualized pulmonary arteries. Normal visualized aortic arch and descending thoracic aorta. There are mild degenerative changes of the visualized thoracic spine. Normal visualized ribs, clavicles, and shoulders. There is no demonstrated abnormality of the visualized soft tissue structures of the upper abdomen. RAD/Chest PA and Lateral IMPRESSION: Hyperinflation. Stable mild scarring at the left lung base at the biopsy site. Electronically Signed: Jatin Urrutia, at 13:11 EDT , Service support ,
[2019-06-05 12:48] LABS: Absolute Lymphocyte Count 0.97 X10^3/uL (0.83-4.51); Absolute Neutrophil Count 2.3 X10^3/uL (2.0-7.7); Basophil# 0.01 X10^3/uL; Basophil% 0.3 % (0-1); Eosinophil# 0.01 X10^3/uL; Eosinophils% 0.3 % (0-5); Hemoglobin 12.6 g/dL (12.0-15.0); Lymphocyte # 0.97 X10^3/ul (4.0); Lymphocyte % 27.4 % (19-41); Mean Corpuscular Hgb 26.5 pg (27.0-32.0); Mean Corpuscular Volume 88.2 fL (81-99); Mean Platelet Vol. 10.8 fl (6.2-12.0); Monocyte# 0.23 X10^3/uL; Monocyte% 6.5 % (0-10); NRBC Flagged by Analyzer 0 % (0-5); Neutrophil # 2.25 X10^3/uL (2.7-7.7); Neutrophil % 63.5 % (47-70); Platelet Count 102 K/mm3 (150-450); RBC Distribution Width CV 16.6 % (11.6-14.6); RBC Distribution Width SD 53.1 fl (35.1-43.9); Red Blood Count 4.76 M/mm3 (4.2-5.4); White Blood Count 3.5 K/mm3 (4.4-11.0)
[2019-06-05 13:01] LABS: Erythrocyte Sedimentation Rate 21 mm/hr (0-30)
== END ==
PROVIDERS: PCP Family Medicine; Referring Provider Internal Medicine Pulmonary Disease; Visit Provider Internal Medicine Pulmonary Disease
DX: J84.116 Cryptogenic organizing pneumonia (principal); R50.9 Fever, unspecified; R05 Cough; R07.9 Chest pain, unspecified
CPT/HCPCS: 36415; 71046; 85025; 85652

== ENCOUNTER → 2019-06-06 09:37 | Outpatient (CLI) | payer OTHER, SELFPAY ==
[2019-06-06 09:45] LABS: Mucous, Urine 0 SEEN /hpf (<or=2+)
[2019-06-06 12:21] LABS: Color, Urine Yellow (Yellow); Glucose, Dipstick Normal (Normal); Ketone-Dipstick Negative (Negative); Leukocyte Esterase-Dipstick 100 /ul (Negative); Nitrite-Dipstick Negative (Negative); Occult Blood-Urine 10 /ul (Negative); Protein-Dipstick 30 mg/dl (Negative); Urine Bilirubin Dipstick Negative (Negative); Urine Clarity Sl. Cloudy (Clear); Urine Urobilinogen Normal (Normal)
[2019-06-06 12:32] LABS: Bacteria 2+ /hpf (None Seen); Red Blood Cells-Urine 0-5 SEEN /hpf (0-5); Squamous Epithelial Cells - UA 0-5 SEEN /hpf (5-10); White Blood Cells 0-5 SEEN /hpf (0-5)
== END ==
PROVIDERS: PCP Family Medicine; Referring Provider Family Medicine; Visit Provider Family Medicine
DX: R30.0 Dysuria (principal)
CPT/HCPCS: 81001; 87077; 87086; 87088

== ENCOUNTER 2019-06-09 09:27 | Emergency (ER) | payer OTHER, SELFPAY ==
[2019-06-09 09:30] VITALS: BP 125/82; PULSE 102; RESP 16; TEMP 36.6; O2SAT 99; BMI 25.9
--- NOTE | 2019-06-09 10:18 | CT_ITS ---
STUDY: CT ABDOMEN AND PELVIS WITH CONTRAST REASON FOR EXAM: Female, 58 years old. UPPER ABD PAIN X 24 HRS, UTI, FEVER RADIATION DOSAGE (If Supplied By Facility): CTDIvol = ( 11.78 ) mGy, DLP = ( 727.24 ) mGycm TECHNIQUE: Transaxial images were obtained from the dome of the diaphragm to the symphysis pubis with Gastrografin oral contrast. 100 mL of IV Isovue-300 was administered. Sagittal and coronal images were reconstructed. Individualized dose optimization techniques were used for this CT. COMPARISON: 11/10/2018. FINDINGS: Calcified granuloma and subsegmental atelectasis or scarring in the left lung base. The visualized portions of the heart are within normal limits. Mild diffuse fatty infiltration of the liver. Normal gallbladder and extrahepatic biliary system. Splenomegaly measuring 15.73 cm long, previously 12 cm long. Normal pancreas. Normal bilateral adrenal glands. Normal right kidney. Normal left kidney. Mild thickening of the gastric antral wall is unchanged. Normal small intestine. Normal colon. The appendix is not visualized despite the presence of contrast inside the terminal ileum and cecum. Normal abdominal aorta. Normal inferior vena cava. Normal retroperitoneum. Normal urinary bladder. Normal abdominal wall. Normal osseous structures. CT/Abdomen/Pelvis WITH Contrast IMPRESSION: 1. Splenomegaly measuring 15.73 cm long, previously 12 cm. 2. Mild diffuse hepatic steatosis is unchanged. 3. Mild thickening of the gastric antral wall is unchanged. Upper endoscopy may be helpful for further evaluation. 4. Nonvisualization of the appendix despite the presence of contrast inside the terminal ileum and the cecum. Electronically Signed: Karl Bourne MD at 12:41 EDT , Service support ,
--- NOTE | 2019-06-09 10:19 | EKG12_ITS ---
Test Reason : FEVER Blood Pressure : / mmHG Vent. Rate : 105 BPM Atrial Rate : 105 BPM P-R Int : 140 ms QRS Dur : 078 ms QT Int : 340 ms P-R-T Axes : 026 034 013 degrees QTc Int : 449 ms Sinus tachycardia with Premature atrial complexes Otherwise normal ECG Confirmed by JORDY PLUNKETT, STEVIE ([id number]), society editor KEON LINARES ([id number]) on 06/12/2019 1:55:04 PM Referred By: JADE Confirmed By:STEVIE SPENCE MD
--- NOTE | 2019-06-09 10:19 | RAD_ITS ---
STUDY: X-RAY CHEST REASON FOR EXAM: Female, 58 years old. FEVER TECHNIQUE: AP upright portable view. COMPARISON: 06/05/2019. FINDINGS: Surgical suture in the left breast or left lower chest. This is unchanged. Clearing of curvilinear subsegmental atelectases in the left lower lobe. The lungs are clear. There is no demonstrated pleural abnormality. Normal size heart. Normal mediastinum and rojelio. Normal visualized pulmonary arteries. Normal visualized aortic arch and descending thoracic aorta. Normal visualized thoracic spine. Normal visualized ribs, clavicles, and shoulders. There is no demonstrated abnormality of the visualized soft tissue structures of the upper abdomen. RAD/Chest 1 View (Portable) IMPRESSION: 1. No acute cardiopulmonary pathology. 2. Clearing of subsegmental atelectasis in the left lung base. 3. Surgical suture in the left lower chest was present previously and unchanged. Electronically Signed: Karl Bourne MD at 10:53 EDT , Service support ,
[2019-06-09] MEDS: Ondansetron 4 MG/2 ML Vial IV (10:37)
[2019-06-09] MEDS: 0.9% Normal Saline 1,000 ML 1000 ML IV (10:37)
[2019-06-09 10:41] VITALS: BP 140/74; PULSE 109; RESP 14; TEMP 37.3; O2SAT 97
[2019-06-09 10:44] VITALS: BP 140/90; PULSE 111; RESP 18; O2SAT 99
[2019-06-09 10:45] VITALS: TEMP 37.3
[2019-06-09 10:59] LABS: Mucous, Urine 0 SEEN /hpf (<or=2+); Red Blood Cells-Urine 0 SEEN /hpf (0-5); Squamous Epithelial Cells - UA 0 SEEN /hpf (5-10); White Blood Cells 0 SEEN /hpf (0-5)
[2019-06-09 11:04] LABS: Color, Urine Yellow (Yellow); Glucose, Dipstick Normal (Normal); Ketone-Dipstick Negative (Negative); Leukocyte Esterase-Dipstick Negative /ul (Negative); Nitrite-Dipstick Negative (Negative); Occult Blood-Urine 10 /ul (Negative); Protein-Dipstick 30 mg/dl (Negative); Specific Gravity, Urine 1.015 (1.002-1.030); Urine Bilirubin Dipstick Negative (Negative); Urine Clarity Cloudy (Clear); Urine Urobilinogen Normal (Normal)
[2019-06-09 11:10] LABS: Absolute Lymphocyte Count 0.61 X10^3/uL (0.83-4.51); Absolute Neutrophil Count 1.9 X10^3/uL (2.0-7.7); Basophil# 0.01 X10^3/uL; Basophil% 0.4 % (0-1); Hemoglobin 12.3 g/dL (12.0-15.0); Lymphocyte # 0.61 X10^3/ul (4.0); Lymphocyte % 21.6 % (19-41); Mean Corpuscular Hgb 26.9 pg (27.0-32.0); Mean Corpuscular Volume 89.5 fL (81-99); Mean Platelet Vol. 10.8 fl (6.2-12.0); Monocyte# 0.25 X10^3/uL; Monocyte% 8.9 % (0-10); NRBC Flagged by Analyzer 0 % (0-5); Neutrophil # 1.89 X10^3/uL (2.7-7.7); POSITIVE COUNT YES; POSITIVE MORPHOLOGY YES; Platelet Count 88 K/mm3 (150-450); RBC Distribution Width CV 16.4 % (11.6-14.6); RBC Distribution Width SD 53.3 fl (35.1-43.9); Red Blood Count 4.58 M/mm3 (4.2-5.4); White Blood Count 2.8 K/mm3 (4.4-11.0)
[2019-06-09 11:11] LABS: Differential Indicated SCAN CRITERIA MET
[2019-06-09 11:16] LABS: Prothrombin Time (Protime)PT. 13.3 SECONDS (11.7-14.9)
[2019-06-09 11:17] LABS: Partial Thromboplast Time 29.2 Seconds (24.1-36.2)
[2019-06-09 11:23] LABS: Bacteria 2+ /hpf (None Seen)
[2019-06-09 11:25] LABS: ALB/GLOB Ratio 1.2 RATIO (0.9-2.4); AST(SGOT) 60 U/L (15-37); Alanine Aminotransfer ALT/SGPT 58 U/L (13-56); Albumin, Serum 3.3 g/dL (3.2-5.0); Alkaline Phosphatase 72 U/L (45-117); Anion Gap 6 (5-15); BUN 12 mg/dL (7-18); BUN/Creat Ratio 14.5 RATIO (10-20); Chloride 101 mmol/L (98-107); Creatinine, Serum 0.83 mg/dL (0.55-1.02); EST Glomerular Filtration Rate 75 mL/min (>60); Est Glom Filt Rate - Afr Amer 90 mL/min (>60); Estimated Creatinine Clearance 64.86 ml/min; Globulin 2.7 g/dL (2.2-4.2); Glucose 95 mg/dL (74-106); Lipase 126 U/L (73-393); Potassium 3.2 mmol/L (3.5-5.1); Sodium Level 136 mmol/L (136-145)
[2019-06-09 11:28] LABS: CPK Total, Creatine Kinase 26 U/L (26-192)
[2019-06-09 11:49] LABS: Platelet Estimate MOD DEC (ADEQ); Reactive Lymphocyte 1+; Red Cell Morphology NORM C+C NORMAL (NORM C&C)
--- NOTE | 2019-06-09 13:00 | ED.VISSUMM ---
- ER Visit Summary Date of Service: 06/09/19 Chief Complaint: Abdominal pain and fever History of Present Illness: The patient is a [address] Benjamin Armstrong. She reports that she has had a low-grade fever for the past 2 weeks. Last night it spiked to to 103.9. She reports that she was seen in the office and had a urinalysis that did show a urinary tract infection. She is been on Cipro for the past 2 days. She reports that she is diet having diarrhea twice a day since beginning this. Patient reports that she has upper abdominal pain that began yesterday. Is a constant aching pain is 7 out of 10 in severity currently and at worst. Nothing makes this better or worse. She denies any vomiting. However, she is nauseated. She reports has had frequent urination, but no dysuria. She denies any sore throat, cough, chest pain, or shortness of breath. She denies sick contacts. No recent travel. She denies any history of fatty food intolerance. Physical Examination: Vitals: Stable. Afebrile. General: Well-nourished and well-developed. Head: Normocephalic atraumatic. Neck: Supple, no lymphadenopathy. No JVD. Nontender. Cardiovascular: Regular rate and rhythm. No murmurs. Respiratory: No respiratory distress. Clear to auscultation bilaterally. Abdominal: Soft, moderate epigastric and mild left upper quadrant tenderness to palpation, nondistended, normal bowel sounds. No guarding, rebound, or peritoneal signs. Back: Nontender. Extremities: Nontender, no edema. Skin: Normal color, no rash. Neurologic: Alert and oriented ?3. Cranial nerves II through XII are intact. Normal strength and sensation. Psych: Normal affect. Test Results: CBC shows a white count of 2.8 with platelets of 88. Chem-7 shows a potassium of 3.2 and calcium of 8.0. LFTs show total protein of 6.0, ALT of 58, AST of 60. Lipase is normal. Coags are normal. UA is negative. Chest x-ray shows chronic changes. Clinical Impression(s) from Imaging Studies Abdomen/Pelvis CT 06/09/19 10:18 IMPRESSION: 1. Splenomegaly measuring 15.73 cm long, previously 12 cm. 2. Mild diffuse hepatic steatosis is unchanged. 3. Mild thickening of the gastric antral wall is unchanged. Upper endoscopy may be helpful for further evaluation. 4. Nonvisualization of the appendix despite the presence of contrast inside the terminal ileum and the cecum. Electronically Signed: Karl Bourne MD at 12:41 EDT , Service support , Chest X-Ray 06/09/19 10:19 IMPRESSION: 1. No acute cardiopulmonary pathology. 2. Clearing of subsegmental atelectasis in the left lung base. 3. Surgical suture in the left lower chest was present previously and unchanged. Electronically Signed: Karl Bourne MD at 10:53 EDT , Service support , Emergency Department Course and Treatment: Patient was treated with Zofran IV. She is resting comfortably. Treatment Plan: The patient was discussed with Dr. Benjamin Armstrong. She is instructed to stop her CellCept. She had CMV and Isra-Kaur IgM and IgG added. She is instructed to follow-up with Dr. Benjamin Armstrong this week for further evaluation. She will be discharged with Zofran. She is happy with this plan. Return to the emergency department for any worsening symptoms. Disposition: To home in improved and stable condition. Impression: 1. Splenomegaly. 2. Fever, uncertain cause. 3. Leukopenia/thrombocytopenia on CellCept. This note was generated with [employer] dictation software. It may contain incorrect words, spelling, and punctuation that were not noted in review of the chart prior to signing ED Disposition - Plan for ED Patient: Disposition: Home or Assisted Living Instructions: ED FUO Adult Prescriptions: Ondansetron [Zofran Odt] 4 mg PO Q8H PRN PRN #10 tab PRN Reason: Nausea Prescription Printed Referrals: Catalino Hutson MD [STAFF PHYSICIAN] - Benjamin Armstrong MD [Primary Care Provider] - 3-5 Days Additional Instructions: Hold your Cellcept over the weekend and speak with Dr. Hutson about whether to take it anymore. Your White count is 2.8, platelets 88. ALT 58, AST is 60. Your spleen is slightly enlarged. This may all be due to the cellcept. We added on tests for mono and CMV.
[2019-06-09 13:19] VITALS: BP 144/78; PULSE 104; RESP 16; TEMP 37.4; O2SAT 99
[2019-06-09 13:20] VITALS: BP 144/78; PULSE 110; RESP 16; O2SAT 99
[2019-06-12 15:29] LABS: EBV Acute VCA IgM < 36.0 U/mL (0.0-35.9)
[2019-06-12 15:30] LABS: CMV Acute Antibody IgM < 30.0 AU/mL (0.0-29.9); CMV Antibody IgG < 0.60 U/mL (0.00-0.59)
== END 2019-06-09 13:21 | disposition home or self-care (01) ==
LOC: ED 10:38
PROVIDERS: Emergency Provider Emergency Medicine; PCP Family Medicine
DX: R16.1 Splenomegaly, not elsewhere classified (principal); R50.9 Fever, unspecified; D72.819 Decreased white blood cell count, unspecified; D69.6 Thrombocytopenia, unspecified; N39.0 Urinary tract infection, site not specified; R19.7 Diarrhea, unspecified; I49.1 Atrial premature depolarization; K76.0 Fatty (change of) liver, not elsewhere classified; J98.11 Atelectasis; E78.00 Pure hypercholesterolemia, unspecified; Z79.899 Other long term (current) drug therapy
CPT/HCPCS: 71045; 74177; 80053; 81001; 82550; 83605; 83690; 85025; 85610; 85730; 86644; 86645; 86664; 86665; 87040; 87086; 93005; 96361; 96374; 99284; J7030; Q9967; A4216; J2405

== ENCOUNTER → 2019-06-15 | Outpatient (CLI) | payer OTHER, SELFPAY ==
[2019-06-09 09:30] VITALS: BMI 25.9
== END | disposition home or self-care (01) ==
LOC: LABSPEC 06-19 11:13
PROVIDERS: PCP Family Medicine; Referring Provider Family Medicine; Visit Provider Family Medicine
DX: R19.7 Diarrhea, unspecified (principal)
CPT/HCPCS: 87493

== ENCOUNTER 2019-07-27 08:07 | Outpatient (RCR) | payer OTHER, SELFPAY ==
[2019-07-27 08:41] LABS: Hematocrit 42.2 % (37-47); Hemoglobin 12.8 g/dL (12.0-15.0); Mean Corp Hgb Conc 30.3 g/dL (32-36); Mean Corpuscular Hgb 26.7 pg (27.0-32.0); Mean Corpuscular Volume 87.9 fL (81-99); Mean Platelet Vol. 9.5 fl (6.2-12.0); Platelet Count 192 K/mm3 (150-450); RBC Distribution Width CV 16.4 % (11.6-14.6); RBC Distribution Width SD 52.6 fl (35.1-43.9); White Blood Count 5.4 K/mm3 (4.4-11.0)
[2019-07-27 09:04] LABS: AST(SGOT) 29 U/L (15-37); Alanine Aminotransfer ALT/SGPT 30 U/L (13-56); Albumin, Serum 3.4 g/dL (3.2-5.0); Alkaline Phosphatase 81 U/L (45-117); BUN 16 mg/dL (7-18); Bilirubin, Direct 0.12 mg/dL (0.00-0.30); Protein, Total 6.4 g/dL (6.4-8.2)
== END 2019-07-27 18:00 | disposition home or self-care (01) ==
LOC: LAB 08:07
PROVIDERS: Family Provider Family Medicine; PCP Family Medicine; Referring Provider Internal Medicine Pulmonary Disease; Visit Provider Internal Medicine Pulmonary Disease
DX: J84.116 Cryptogenic organizing pneumonia (principal)
CPT/HCPCS: 36415; 80076; 84520; 85027

== ENCOUNTER 2019-08-17 12:33 | Outpatient (RCR) | payer OTHER, SELFPAY ==
[2019-08-17 13:49] LABS: Hematocrit 42.1 % (37-47); Hemoglobin 12.6 g/dL (12.0-15.0); Mean Corp Hgb Conc 29.9 g/dL (32-36); Mean Corpuscular Hgb 26.9 pg (27.0-32.0); Mean Corpuscular Volume 89.8 fL (81-99); Mean Platelet Vol. 9.8 fl (6.2-12.0); Platelet Count 189 K/mm3 (150-450); RBC Distribution Width CV 16.1 % (11.6-14.6); RBC Distribution Width SD 52.8 fl (35.1-43.9); Red Blood Count 4.69 M/mm3 (4.2-5.4); White Blood Count 5.6 K/mm3 (4.4-11.0)
[2019-08-17 14:18] LABS: AST(SGOT) 25 U/L (15-37); Alanine Aminotransfer ALT/SGPT 26 U/L (13-56); Albumin, Serum 3.5 g/dL (3.2-5.0); Alkaline Phosphatase 81 U/L (45-117); BUN 12 mg/dL (7-18); Bilirubin, Direct 0.08 mg/dL (0.00-0.30); CPK Total, Creatine Kinase 57 U/L (26-192); Globulin 3.1 g/dL (2.2-4.2); LDH 229 U/L (84-246); Protein, Total 6.6 g/dL (6.4-8.2)
[2019-08-21 16:08] LABS: Immunoglobulin A 120 mg/dL (87-352); Immunoglobulin G 565 mg/dL (586-1602); Immunoglobulin M 36 mg/dL (26-217); PROEL- A/G Ratio 1.3 (0.7-1.7); PROEL- Albumin 3.3 g/dL (2.9-4.4); PROEL- Alpha-1 Globulin 0.2 g/dL (0.0-0.4); PROEL- Alpha-2 Globulin 0.7 g/dL (0.4-1.0); PROEL- Beta Globulin 1.1 g/dL (0.7-1.3); PROEL- Gamma Globulin 0.6 g/dL (0.4-1.8); PROEL- Globulin, Total 2.6 g/dL (2.2-3.9); PROEL- TOTAL PROTEIN 5.9 g/dL (6.0-8.5)
[2019-08-22 05:09] LABS: Aldolase 5.4 U/L (3.3-10.3); Immunofixation Result, Serum Comment: (.)
== END 2019-08-17 18:00 | disposition home or self-care (01) ==
LOC: LAB 12:33
PROVIDERS: Family Provider Family Medicine; PCP Family Medicine; Referring Provider Internal Medicine Pulmonary Disease; Visit Provider Internal Medicine Pulmonary Disease
DX: M33.12 Other dermatomyositis with myopathy (principal); J84.116 Cryptogenic organizing pneumonia; J45.909 Unspecified asthma, uncomplicated
CPT/HCPCS: 36415; 80076; 82085; 82550; 82784; 83615; 84165; 84520; 85027; 86334

== ENCOUNTER 2019-09-19 09:47 | Outpatient (RCR) | payer OTHER, SELFPAY ==
[2019-09-19 10:25] LABS: Hematocrit 44.1 % (37-47); Hemoglobin 13.5 g/dL (12.0-15.0); Mean Corp Hgb Conc 30.6 g/dL (32-36); Mean Corpuscular Hgb 26.6 pg (27.0-32.0); Mean Corpuscular Volume 86.8 fL (81-99); Mean Platelet Vol. 9.5 fl (6.2-12.0); Platelet Count 174 K/mm3 (150-450); RBC Distribution Width SD 50.4 fl (35.1-43.9); Red Blood Count 5.08 M/mm3 (4.2-5.4); White Blood Count 4.5 K/mm3 (4.4-11.0)
[2019-09-19 10:50] LABS: AST(SGOT) 25 U/L (15-37); Alanine Aminotransfer ALT/SGPT 29 U/L (13-56); Albumin, Serum 3.4 g/dL (3.2-5.0); Alkaline Phosphatase 81 U/L (45-117); BUN 18 mg/dL (7-18); Bilirubin, Direct 0.11 mg/dL (0.00-0.30); Globulin 2.9 g/dL (2.2-4.2); Magnesium 2.3 mg/dL (1.6-2.6); Phosphorus 3.7 mg/dL (2.5-4.9); Protein, Total 6.3 g/dL (6.4-8.2)
[2019-09-19 11:06] LABS: PTHIN 50.9 pg/mL (18.4-80.1)
[2019-09-19 11:10] LABS: Vitamin D,25 Hydroxy 83.7 ng/mL
[2019-09-19 11:33] LABS: Calcium, Urine (Random) 16.5 mg/dL (Not Estab.)
[2019-09-19 13:46] LABS: Hemoglobin A1c 5.4 % (3.8-5.6)
[2019-09-21 14:22] LABS: Vitamin D 1,25-Dihydroxy 60.7 pg/mL (19.9-79.3)
== END 2019-09-19 18:00 | disposition home or self-care (01) ==
LOC: LAB 09:47
PROVIDERS: Family Provider Family Medicine; PCP Family Medicine; Referring Provider Internal Medicine Pulmonary Disease; Visit Provider Internal Medicine Pulmonary Disease
DX: J84.116 Cryptogenic organizing pneumonia (principal); J45.909 Unspecified asthma, uncomplicated; R73.9 Hyperglycemia, unspecified; E21.3 Hyperparathyroidism, unspecified
CPT/HCPCS: 36415; 80076; 82306; 82330; 82340; 82570; 82652; 83036; 83735; 83970; 84100; 84520; 85027

== ENCOUNTER 2019-10-24 11:08 | Outpatient (RCR) | payer OTHER, SELFPAY ==
[2019-10-24 11:27] LABS: Hematocrit 42.7 % (37-47); Hemoglobin 12.9 g/dL (12.0-15.0); Mean Corp Hgb Conc 30.2 g/dL (32-36); Mean Corpuscular Hgb 26.6 pg (27.0-32.0); Mean Platelet Vol. 9.4 fl (6.2-12.0); Platelet Count 179 K/mm3 (150-450); RBC Distribution Width CV 16.5 % (11.6-14.6); RBC Distribution Width SD 52.3 fl (35.1-43.9); Red Blood Count 4.85 M/mm3 (4.2-5.4); White Blood Count 7.3 K/mm3 (4.4-11.0)
[2019-10-24 11:57] LABS: AST(SGOT) 27 U/L (15-37); Alanine Aminotransfer ALT/SGPT 26 U/L (13-56); Albumin, Serum 3.5 g/dL (3.2-5.0); Alkaline Phosphatase 96 U/L (45-117); BUN 14 mg/dL (7-18); Bilirubin, Direct 0.08 mg/dL (0.00-0.30); Globulin 2.7 g/dL (2.2-4.2); Protein, Total 6.2 g/dL (6.4-8.2)
== END 2019-11-05 18:00 | disposition home or self-care (01) ==
LOC: LAB 11:08
PROVIDERS: Family Provider Family Medicine; PCP Family Medicine; Referring Provider Internal Medicine Pulmonary Disease; Visit Provider Internal Medicine Pulmonary Disease
DX: J84.116 Cryptogenic organizing pneumonia (principal); J45.909 Unspecified asthma, uncomplicated
CPT/HCPCS: 36415; 80076; 84520; 85027

== ENCOUNTER 2019-11-22 10:08 | Outpatient (RCR) | payer OTHER, SELFPAY ==
[2019-11-22 11:23] LABS: Hematocrit 39.9 % (37-47); Mean Corp Hgb Conc 30.1 g/dL (32-36); Mean Corpuscular Hgb 26.8 pg (27.0-32.0); Mean Corpuscular Volume 89.1 fL (81-99); Platelet Count 172 K/mm3 (150-450); RBC Distribution Width CV 16.2 % (11.6-14.6); Red Blood Count 4.48 M/mm3 (4.2-5.4)
[2019-11-22 12:00] LABS: AST(SGOT) 22 U/L (15-37); Alanine Aminotransfer ALT/SGPT 23 U/L (13-56); Albumin, Serum 3.3 g/dL (3.2-5.0); Alkaline Phosphatase 92 U/L (45-117); BUN 16 mg/dL (7-18); Bilirubin, Direct 0.12 mg/dL (0.00-0.30); Globulin 2.9 g/dL (2.2-4.2); Protein, Total 6.2 g/dL (6.4-8.2)
== END 2019-11-22 18:00 | disposition home or self-care (01) ==
LOC: LAB 10:08
PROVIDERS: Family Provider Family Medicine; PCP Family Medicine; Referring Provider Internal Medicine Pulmonary Disease; Visit Provider Internal Medicine Pulmonary Disease
DX: J84.116 Cryptogenic organizing pneumonia (principal); J45.909 Unspecified asthma, uncomplicated
CPT/HCPCS: 36415; 80076; 84520; 85027

== ENCOUNTER → 2019-11-29 16:38 | Outpatient (CLI) | payer OTHER, SELFPAY ==
--- NOTE | 2019-11-29 16:46 | RAD_ITS ---
STUDY: X-RAY CHEST REASON FOR EXAM: Female, 59 years old. PATIENT STATES PAIN UNDER LEFT ARMPIT RADIATING AROUND ANTERIORLY TO BELOW THE LEFT BREAST. COUGH AND SOB. HX OF LEFT LUNG WEDGE BIOPSY PER PATIENT. HX OF CRYPTOGENIC ORGANIZING PNEUMONIA PER PATIENT. TECHNIQUE: PA and lateral views of the chest. COMPARISON: Comparison is made with prior study dated 06/09/2019. FINDINGS: Once again, surgical sutures are seen overlying the left lower lobe. Stable increased markings in the lingular segment of the left upper lobe with blunting of the left costophrenic angle. Normal size heart. Normal mediastinum and rojelio. Normal visualized pulmonary arteries. There is atherosclerotic calcification of the aortic arch with tortuosity. There are degenerative changes of the visualized thoracic spine. Normal visualized ribs, clavicles, and shoulders. There is no demonstrated abnormality of the visualized soft tissue structures of the upper abdomen. RAD/Chest PA and Lateral IMPRESSION: Stable examination with scarring at the left lung base and blunting of the left costophrenic angle. Electronically Signed: Jatin Urrutia, at 8:22 EDT , Service support ,
[2019-11-29 17:58] LABS: Absolute Lymphocyte Count 2.04 X10^3/uL (0.83-4.51); Absolute Neutrophil Count 3.8 X10^3/uL (2.0-7.7); Basophil# 0.03 X10^3/uL; Basophil% 0.5 % (0-1); Eosinophil# 0.05 X10^3/uL; Eosinophils% 0.8 % (0-5); Hematocrit 40.4 % (37-47); Hemoglobin 12.1 g/dL (12.0-15.0); Lymphocyte # 2.04 X10^3/ul (4.0); Lymphocyte % 31.1 % (19-41); Mean Corpuscular Hgb 26.5 pg (27.0-32.0); Mean Corpuscular Volume 88.4 fL (81-99); Mean Platelet Vol. 10.1 fl (6.2-12.0); Monocyte# 0.61 X10^3/uL; Monocyte% 9.3 % (0-10); NRBC Flagged by Analyzer 0 % (0-5); Neutrophil % 57.7 % (47-70); Platelet Count 159 K/mm3 (150-450); RBC Distribution Width CV 15.9 % (11.6-14.6); RBC Distribution Width SD 51.6 fl (35.1-43.9); Red Blood Count 4.57 M/mm3 (4.2-5.4); White Blood Count 6.6 K/mm3 (4.4-11.0)
== END ==
PROVIDERS: PCP Family Medicine; Referring Provider Internal Medicine Pulmonary Disease; Visit Provider Internal Medicine Pulmonary Disease
DX: J84.116 Cryptogenic organizing pneumonia (principal); J45.909 Unspecified asthma, uncomplicated
CPT/HCPCS: 36415; 71046; 85025

== ENCOUNTER → 2019-11-30 10:02 | Outpatient (CLI) | payer OTHER, SELFPAY ==
[2019-11-30 12:22] LABS: D-Dimer Quantitative (DVT/PE) 0.33 FEU/ug/m (0.27-0.49)
== END ==
PROVIDERS: PCP Family Medicine; Referring Provider Internal Medicine Pulmonary Disease; Visit Provider Internal Medicine Pulmonary Disease
DX: R06.00 Dyspnea, unspecified (principal); R07.9 Chest pain, unspecified; R05 Cough
CPT/HCPCS: 36415; 85379; 87635; 87804; C9803; U0003

== ENCOUNTER 2019-12-21 10:08 | Outpatient (RCR) | payer OTHER, SELFPAY ==
[2019-12-21 11:13] LABS: Hematocrit 42.4 % (37-47); Hemoglobin 12.3 g/dL (12.0-15.0); Mean Corpuscular Hgb 26.3 pg (27.0-32.0); Mean Corpuscular Volume 90.8 fL (81-99); Platelet Count 172 K/mm3 (150-450); RBC Distribution Width CV 15.6 % (11.6-14.6); RBC Distribution Width SD 51.3 fl (35.1-43.9); Red Blood Count 4.67 M/mm3 (4.2-5.4); White Blood Count 4.5 K/mm3 (4.4-11.0)
[2019-12-21 11:41] LABS: AST(SGOT) 28 U/L (15-37); Alanine Aminotransfer ALT/SGPT 26 U/L (13-56); Albumin, Serum 3.4 g/dL (3.2-5.0); Alkaline Phosphatase 109 U/L (45-117); BUN 17 mg/dL (7-18); Bilirubin, Direct 0.08 mg/dL (0.00-0.30); Globulin 2.8 g/dL (2.2-4.2); Protein, Total 6.2 g/dL (6.4-8.2)
== END 2019-12-21 18:00 | disposition home or self-care (01) ==
LOC: LAB 10:08
PROVIDERS: Family Provider Family Medicine; PCP Family Medicine; Referring Provider Internal Medicine Pulmonary Disease; Visit Provider Internal Medicine Pulmonary Disease
DX: J84.116 Cryptogenic organizing pneumonia (principal); J45.909 Unspecified asthma, uncomplicated
CPT/HCPCS: 36415; 80076; 84520; 85027

== ENCOUNTER → 2020-01-21 10:35 | Outpatient (CLI) | payer OTHER, SELFPAY ==
--- NOTE | 2020-01-21 10:36 | BI_ITS ---
MAMMOGRAPHY - BILATERAL SCREENING REASON FOR EXAM: Female, 59 years old. Routine annual screening examination. PERTINENT HISTORY: Grandmother with breast cancer. TECHNIQUE: Digital bilateral breast jonnie (3D mammographic acquisition) in the CC and MLO projections. 2-D mediolateral oblique (MLO) and craniocaudad (CC) views of both breasts were obtained. CAD: Full Field Digital Mammography with Computer Added Detection was performed. COMPARISON: Comparison is made with prior study dated 12/11/2018 and 12/09/2017. FINDINGS: Breast Composition: There are scattered areas of fibroglandular density. There are no dominant masses or suspicious calcifications. Stable 5.5 mm x 4.5 mm well-defined nodule in the upper slightly lateral aspect of the left breast. A central notch is seen within it and this most likely represents a small benign appearing lymph node. No other significant abnormalities are identified. There has been no significant change since the prior study. BI/SCREEN MAMM (CAD) W/JONNIE BILAT IMPRESSION: Stable bilateral screening mammogram. Yearly follow-up mammogram recommended. (A) ASSESSMENT CATEGORY: BIRADS Category 2: Benign. A letter regarding these results will be sent to the patient by the facility within 30 days. Approximately 10% of breast cancers are not detected by mammography. A normal mammogram should not delay biopsy of a clinically suspicious abnormality. [id number] Electronically Signed: Jatni Urrutia, at 12:04 EST , Service support ,
== END ==
PROVIDERS: PCP Family Medicine; Referring Provider Student in an Organized Health Care Education/Training Program; Visit Provider Student in an Organized Health Care Education/Training Program
DX: Z12.31 Encounter for screening mammogram for malignant neoplasm of breast (principal)
CPT/HCPCS: 77063; 77067

== ENCOUNTER 2020-01-22 08:57 | Outpatient (RCR) | payer OTHER, SELFPAY ==
[2020-01-22 10:01] LABS: Hematocrit 41.5 % (37-47); Hemoglobin 12.5 g/dL (12.0-15.0); Mean Corp Hgb Conc 30.1 g/dL (32-36); Mean Corpuscular Hgb 26.3 pg (27.0-32.0); Mean Corpuscular Volume 87.2 fL (81-99); Mean Platelet Vol. 10.7 fl (6.2-12.0); Platelet Count 168 K/mm3 (150-450); Red Blood Count 4.76 M/mm3 (4.2-5.4); White Blood Count 4.9 K/mm3 (4.4-11.0)
[2020-01-22 10:42] LABS: AST(SGOT) 22 U/L (15-37); Alanine Aminotransfer ALT/SGPT 25 U/L (13-56); Albumin, Serum 3.5 g/dL (3.2-5.0); Alkaline Phosphatase 81 U/L (45-117); BUN 16 mg/dL (7-18); Globulin 3.1 g/dL (2.2-4.2); Protein, Total 6.6 g/dL (6.4-8.2)
== END 2020-01-22 18:00 | disposition home or self-care (01) ==
LOC: LAB 08:57
PROVIDERS: Family Provider Family Medicine; PCP Family Medicine; Referring Provider Internal Medicine Pulmonary Disease; Visit Provider Internal Medicine Pulmonary Disease
DX: J84.116 Cryptogenic organizing pneumonia (principal); J45.909 Unspecified asthma, uncomplicated
CPT/HCPCS: 36415; 80076; 84520; 85027

== ENCOUNTER → 2020-02-04 14:09 | Outpatient (CLI) | payer OTHER, SELFPAY ==
[2020-02-06 16:03] LABS: HPV Reflexed? NOT INDICATED
== END ==
PROVIDERS: PCP Family Medicine; Visit Provider Student in an Organized Health Care Education/Training Program
DX: Z12.4 Encounter for screening for malignant neoplasm of cervix (principal)
CPT/HCPCS: 88175; G0145

== ENCOUNTER 2020-02-21 09:08 | Outpatient (RCR) | payer OTHER, SELFPAY ==
[2020-02-21 09:33] LABS: Hematocrit 39.1 % (37-47); Hemoglobin 11.9 g/dL (12.0-15.0); Mean Corp Hgb Conc 30.4 g/dL (32-36); Mean Corpuscular Hgb 26.6 pg (27.0-32.0); Mean Corpuscular Volume 87.3 fL (81-99); Mean Platelet Vol. 10.2 fl (6.2-12.0); Platelet Count 164 K/mm3 (150-450); RBC Distribution Width CV 15.5 % (11.6-14.6); RBC Distribution Width SD 49.2 fl (35.1-43.9); Red Blood Count 4.48 M/mm3 (4.2-5.4); White Blood Count 6.3 K/mm3 (4.4-11.0)
[2020-02-21 10:04] LABS: ALB/GLOB Ratio 1.3 RATIO (0.9-2.4); AST(SGOT) 25 U/L (15-37); Alanine Aminotransfer ALT/SGPT 26 U/L (13-56); Albumin, Serum 3.5 g/dL (3.2-5.0); Alkaline Phosphatase 82 U/L (45-117); Anion Gap 7 (5-15); BUN 19 mg/dL (7-18); BUN/Creat Ratio 20.8 RATIO (10-20); Calcium,Total 8.2 mg/dL (8.5-10.1); Chloride 105 mmol/L (98-107); Creatinine, Serum 0.91 mg/dL (0.55-1.02); EST Glomerular Filtration Rate 66 mL/min (>60); Est Glom Filt Rate - Afr Amer 80 mL/min (>60); Globulin 2.7 g/dL (2.2-4.2); Glucose 69 mg/dL (74-106); Potassium 3.8 mmol/L (3.5-5.1); Protein, Total 6.2 g/dL (6.4-8.2); Sodium Level 138 mmol/L (136-145)
== END 2020-02-21 18:00 | disposition home or self-care (01) ==
LOC: LAB 09:08
PROVIDERS: Family Provider Family Medicine; PCP Family Medicine; Referring Provider Internal Medicine Pulmonary Disease; Visit Provider Internal Medicine Pulmonary Disease
DX: J84.116 Cryptogenic organizing pneumonia (principal); J45.909 Unspecified asthma, uncomplicated; I10 Essential (primary) hypertension; R00.0 Tachycardia, unspecified
CPT/HCPCS: 36415; 80053; 82248; 84439; 84443; 85027

== ENCOUNTER 2020-03-24 14:28 | Outpatient (RCR) | payer OTHER, SELFPAY ==
[2020-03-21 15:13] LABS: Erythrocyte Sedimentation Rate 23 mm/hr (0-30)
[2020-03-21 16:10] LABS: CRP < 2.90 mg/L (0.0-3.0)
[2020-03-24 15:51] LABS: Hematocrit 43.2 % (37-47); Hemoglobin 12.8 g/dL (12.0-15.0); Mean Corp Hgb Conc 29.6 g/dL (32-36); Mean Corpuscular Hgb 26.4 pg (27.0-32.0); Mean Corpuscular Volume 89.1 fL (81-99); Mean Platelet Vol. 10.2 fl (6.2-12.0); Platelet Count 184 K/mm3 (150-450); RBC Distribution Width CV 15.7 % (11.6-14.6); RBC Distribution Width SD 51.2 fl (35.1-43.9); Red Blood Count 4.85 M/mm3 (4.2-5.4); White Blood Count 5.6 K/mm3 (4.4-11.0)
[2020-03-24 16:11] LABS: AST(SGOT) 27 U/L (15-37); Alanine Aminotransfer ALT/SGPT 27 U/L (13-56); Albumin, Serum 3.7 g/dL (3.2-5.0); Alkaline Phosphatase 86 U/L (45-117); BUN 16 mg/dL (7-18); Bilirubin, Direct 0.08 mg/dL (0.00-0.30); Globulin 2.9 g/dL (2.2-4.2); Protein, Total 6.6 g/dL (6.4-8.2)
== END 2020-03-24 18:00 | disposition home or self-care (01) ==
LOC: LAB 14:28
PROVIDERS: Family Provider Family Medicine; PCP Family Medicine; Referring Provider Internal Medicine Pulmonary Disease; Visit Provider Internal Medicine Pulmonary Disease
DX: J84.116 Cryptogenic organizing pneumonia (principal); J45.909 Unspecified asthma, uncomplicated; M33.12 Other dermatomyositis with myopathy; L29.8 Other pruritus; T14.8XXA Other injury of unspecified body region, initial encounter
CPT/HCPCS: 36415; 80076; 84520; 85027; 85652; 86140

== ENCOUNTER → 2020-04-12 10:40 | Outpatient (CLI) | payer OTHER, SELFPAY ==
[2020-04-12 11:38] LABS: Hemoglobin A1c 5.3 % (3.8-5.6)
[2020-04-12 11:41] LABS: ALB/GLOB Ratio 1.3 RATIO (0.9-2.4); AST(SGOT) 21 U/L (15-37); Alanine Aminotransfer ALT/SGPT 25 U/L (13-56); Albumin, Serum 3.8 g/dL (3.2-5.0); Alkaline Phosphatase 73 U/L (45-117); Anion Gap 6 (5-15); BUN 20 mg/dL (7-18); BUN/Creat Ratio 21.6 RATIO (10-20); Calcium,Total 9.1 mg/dL (8.5-10.1); Chloride 109 mmol/L (98-107); Creatinine, Serum 0.93 mg/dL (0.55-1.02); EST Glomerular Filtration Rate 65 mL/min (>60); Est Glom Filt Rate - Afr Amer 79 mL/min (>60); Globulin 2.9 g/dL (2.2-4.2); Glucose 133 mg/dL (74-106); Potassium 3.4 mmol/L (3.5-5.1); Protein, Total 6.7 g/dL (6.4-8.2); Sodium Level 140 mmol/L (136-145); Thyroid Stim Hormone (TSH) 1.24 uIU/mL (0.358-3.74)
[2020-04-14 09:24] LABS: PTHIN 40.7 pg/mL (18.4-80.1)
[2020-04-14 09:28] LABS: Vitamin D,25 Hydroxy 54.8 ng/mL
== END ==
PROVIDERS: PCP Family Medicine; Referring Provider Internal Medicine Endocrinology, Diabetes & Metabolism; Visit Provider Internal Medicine Endocrinology, Diabetes & Metabolism
DX: M81.0 Age-related osteoporosis without current pathological fracture (principal); J84.116 Cryptogenic organizing pneumonia; E55.9 Vitamin D deficiency, unspecified; E21.3 Hyperparathyroidism, unspecified
CPT/HCPCS: 36415; 80053; 82306; 82330; 83036; 83970; 84443

== ENCOUNTER → 2020-04-16 11:25 | Outpatient (CLI) | payer OTHER, SELFPAY | LOC: LAB.FUTURE 11:27 → LAB 11:34 | PROVIDERS: PCP Family Medicine; Referring Provider Internal Medicine Endocrinology, Diabetes & Metabolism; Visit Provider Internal Medicine Endocrinology, Diabetes & Metabolism | DX: J84.116 Cryptogenic organizing pneumonia (principal); E55.9 Vitamin D deficiency, unspecified; E21.3 Hyperparathyroidism, unspecified | CPT/HCPCS: 82330 ==

== ENCOUNTER 2020-06-19 09:39 | Outpatient (RCR) | payer OTHER, SELFPAY ==
[2020-06-19 10:55] LABS: Hematocrit 40.7 % (37-47); Hemoglobin 12.4 g/dL (12.0-15.0); Mean Corp Hgb Conc 30.5 g/dL (32-36); Mean Corpuscular Hgb 27.6 pg (27.0-32.0); Mean Corpuscular Volume 90.6 fL (81-99); Mean Platelet Vol. 10.6 fl (6.2-12.0); Platelet Count 147 K/mm3 (150-450); RBC Distribution Width CV 14.3 % (11.6-14.6); RBC Distribution Width SD 47.8 fl (35.1-43.9); Red Blood Count 4.49 M/mm3 (4.2-5.4); White Blood Count 4.5 K/mm3 (4.4-11.0)
[2020-06-19 11:35] LABS: AST(SGOT) 24 U/L (15-37); Alanine Aminotransfer ALT/SGPT 25 U/L (13-56); Albumin, Serum 3.5 g/dL (3.2-5.0); Alkaline Phosphatase 94 U/L (45-117); BUN 18 mg/dL (7-18); Bilirubin, Direct 0.08 mg/dL (0.00-0.30); Protein, Total 6.5 g/dL (6.4-8.2)
== END 2020-06-19 18:00 | disposition home or self-care (01) ==
LOC: LAB 09:39
PROVIDERS: Family Provider Family Medicine; PCP Family Medicine; Referring Provider Internal Medicine Pulmonary Disease; Visit Provider Internal Medicine Pulmonary Disease
DX: J84.116 Cryptogenic organizing pneumonia (principal); J45.20 Mild intermittent asthma, uncomplicated
CPT/HCPCS: 36415; 80076; 84520; 85027

== ENCOUNTER → 2020-07-28 08:10 | Outpatient (CLI) | payer OTHER, SELFPAY ==
[2020-07-28 08:23] LABS: Absolute Lymphocyte Count 1.16 X10^3/uL (0.83-4.51); Basophil# 0.01 X10^3/uL; Basophil% 0.2 % (0-1); Eosinophil# 0.05 X10^3/uL; Eosinophils% 1.1 % (0-5); Hematocrit 40.9 % (37-47); Hemoglobin 12.4 g/dL (12.0-15.0); Lymphocyte # 1.16 X10^3/ul (0.83-4.51); Lymphocyte % 25.8 % (19-41); Mean Corp Hgb Conc 30.3 g/dL (32-36); Mean Corpuscular Hgb 27.8 pg (27.0-32.0); Mean Corpuscular Volume 91.7 fL (81-99); Mean Platelet Vol. 10.2 fl (6.2-12.0); Monocyte# 0.29 X10^3/uL; Monocyte% 6.5 % (0-10); NRBC Flagged by Analyzer 0 % (0-5); Neutrophil # 2.95 X10^3/uL (2.7-7.7); Neutrophil % 65.7 % (47-70); Platelet Count 148 K/mm3 (150-450); RBC Distribution Width CV 14.8 % (11.6-14.6); RBC Distribution Width SD 50.4 fl (35.1-43.9); Red Blood Count 4.46 M/mm3 (4.2-5.4); White Blood Count 4.5 K/mm3 (4.4-11.0)
[2020-07-28 08:52] LABS: AST(SGOT) 27 U/L (15-37); Alanine Aminotransfer ALT/SGPT 19 U/L (13-56); Albumin, Serum 3.5 g/dL (3.2-5.0); Alkaline Phosphatase 94 U/L (45-117); Bilirubin, Direct 0.08 mg/dL (0.00-0.30); Globulin 2.5 g/dL (2.2-4.2)
== END ==
PROVIDERS: PCP Family Medicine; Referring Provider Dermatology; Visit Provider Dermatology
DX: L40.8 Other psoriasis (principal); Z79.899 Other long term (current) drug therapy
CPT/HCPCS: 36415; 80076; 85025

== ENCOUNTER 2020-09-19 10:00 | Outpatient (RCR) | payer OTHER, SELFPAY ==
[2020-09-19 10:25] LABS: Hemoglobin 12.2 g/dL (12.0-15.0); Mean Corp Hgb Conc 29.8 g/dL (32-36); Mean Corpuscular Hgb 27.2 pg (27.0-32.0); Mean Corpuscular Volume 91.5 fL (81-99); Mean Platelet Vol. 10.1 fl (6.2-12.0); Platelet Count 159 K/mm3 (150-450); RBC Distribution Width CV 14.2 % (11.6-14.6); RBC Distribution Width SD 47.9 fl (35.1-43.9); Red Blood Count 4.48 M/mm3 (4.2-5.4)
[2020-09-19 11:05] LABS: AST(SGOT) 20 U/L (15-37); Alanine Aminotransfer ALT/SGPT 21 U/L (13-56); Albumin, Serum 3.4 g/dL (3.2-5.0); Alkaline Phosphatase 72 U/L (45-117); BUN 19 mg/dL (7-18); Bilirubin, Direct 0.09 mg/dL (0.00-0.30); Globulin 2.7 g/dL (2.2-4.2); Protein, Total 6.1 g/dL (6.4-8.2)
== END 2020-09-19 18:00 | disposition home or self-care (01) ==
LOC: LAB 10:00
PROVIDERS: Family Provider Family Medicine; PCP Family Medicine; Referring Provider Internal Medicine Pulmonary Disease; Visit Provider Internal Medicine Pulmonary Disease
DX: J84.116 Cryptogenic organizing pneumonia (principal); J45.20 Mild intermittent asthma, uncomplicated
CPT/HCPCS: 36415; 80076; 84520; 85027

== ENCOUNTER → 2020-10-24 11:18 | Outpatient (CLI) | payer OTHER, SELFPAY ==
[2020-10-24 12:15] LABS: Absolute Lymphocyte Count 1.62 X10^3/uL (0.83-4.51); Absolute Neutrophil Count 3.6 X10^3/uL (2.0-7.7); Basophil# 0.02 X10^3/uL; Basophil% 0.3 % (0-1); Eosinophil# 0.08 X10^3/uL; Eosinophils% 1.4 % (0-5); Hematocrit 41.4 % (37-47); Hemoglobin 12.5 g/dL (12.0-15.0); Lymphocyte # 1.62 X10^3/ul (0.83-4.51); Lymphocyte % 27.5 % (19-41); Mean Corp Hgb Conc 30.2 g/dL (32-36); Mean Corpuscular Hgb 27.9 pg (27.0-32.0); Mean Corpuscular Volume 92.4 fL (81-99); Mean Platelet Vol. 10.4 fl (6.2-12.0); Monocyte# 0.54 X10^3/uL; Monocyte% 9.2 % (0-10); NRBC Flagged by Analyzer 0 % (0-5); Neutrophil # 3.62 X10^3/uL (2.7-7.7); Neutrophil % 61.3 % (47-70); Platelet Count 175 K/mm3 (150-450); RBC Distribution Width CV 13.8 % (11.6-14.6); RBC Distribution Width SD 47.1 fl (35.1-43.9); Red Blood Count 4.48 M/mm3 (4.2-5.4); White Blood Count 5.9 K/mm3 (4.4-11.0)
== END ==
PROVIDERS: PCP Family Medicine; Visit Provider Internal Medicine Pulmonary Disease
DX: J84.116 Cryptogenic organizing pneumonia (principal); J45.20 Mild intermittent asthma, uncomplicated
CPT/HCPCS: 36415; 85025

== ENCOUNTER 2020-12-12 09:54 | Outpatient (RCR) | payer OTHER, SELFPAY ==
[2020-12-12 10:20] LABS: Hematocrit 40.8 % (37-47); Hemoglobin 12.6 g/dL (12.0-15.0); Mean Corp Hgb Conc 30.9 g/dL (32-36); Mean Corpuscular Hgb 27.8 pg (27.0-32.0); Mean Corpuscular Volume 90.1 fL (81-99); Mean Platelet Vol. 9.8 fl (6.2-12.0); Platelet Count 171 K/mm3 (150-450); RBC Distribution Width CV 14.4 % (11.6-14.6); RBC Distribution Width SD 47.5 fl (35.1-43.9); Red Blood Count 4.53 M/mm3 (4.2-5.4); White Blood Count 4.4 K/mm3 (4.4-11.0)
[2020-12-12 10:51] LABS: AST(SGOT) 25 U/L (15-37); Alanine Aminotransfer ALT/SGPT 23 U/L (13-56); Albumin, Serum 3.2 g/dL (3.2-5.0); Alkaline Phosphatase 78 U/L (45-117); BUN 18 mg/dL (7-18); Bilirubin, Direct 0.07 mg/dL (0.00-0.30); Protein, Total 6.2 g/dL (6.4-8.2)
== END 2021-01-04 05:22 | disposition home or self-care (01) ==
LOC: LAB 09:54
PROVIDERS: Family Provider Family Medicine; PCP Family Medicine; Referring Provider Internal Medicine Pulmonary Disease; Visit Provider Internal Medicine Pulmonary Disease
DX: J84.116 Cryptogenic organizing pneumonia (principal); J45.20 Mild intermittent asthma, uncomplicated
CPT/HCPCS: 36415; 80076; 84520; 85027

== ENCOUNTER → 2020-12-16 09:47 | Outpatient (CLI) | payer MEDICARE, SELFPAY ==
--- NOTE | 2020-12-16 09:51 | RAD_ITS ---
STUDY: X-RAY - PELVIS AND RIGHT HIP REASON FOR EXAM: Female, 60 years old. HIP AND GROIN PAIN TECHNIQUE: 3 views of the pelvis and hip. COMPARISON: 12/13/2018 FINDINGS: There is a non-specific bowel gas pattern. Normal visualized soft tissue structures. There is narrowing with cortical sclerosis and osteophyte formation of the sacroiliac joint consistent with degenerative osteoarthritic changes. Normal bilateral superior and inferior pubic rami. There are degenerative changes of the pubic symphysis with articular narrowing and sclerosis. Normal bilateral ischial tuberosities. There are osteoarthritic changes of the femoral head with marginal osteophyte formation. There is osteoarthritic spur formation of the acetabular rim. is severe articular joint space narrowing of the hip. RAD/HIP, UNI W/ Pelvis 2-3 Views IMPRESSION: Degenerative arthrosis is worse since the previous study. Electronically Signed: Ernesto Mederos MD at 7:40 EDT Tel , Service support ,
== END ==
PROVIDERS: PCP Family Medicine; Referring Provider Anesthesiology Pain Medicine; Visit Provider Anesthesiology Pain Medicine
DX: M25.551 Pain in right hip (principal); R10.31 Right lower quadrant pain
CPT/HCPCS: 73502

== ENCOUNTER → 2021-01-21 08:27 | Outpatient (CLI) | payer MEDICARE, SELFPAY ==
--- NOTE | 2021-01-21 08:34 | BD_ITS ---
STUDY: DUAL ENERGY X-RAY ABSORPTIOMETRY / DXA REASON FOR EXAM: Female, 60 years old. M810. Patient is postmenopausal. TECHNIQUE: Bone Mineral Density (BMD) measurements of lumbar spine and bilateral hips were obtained. COMPARISON: Comparison is made with prior study dated 03/01/2019. FINDINGS: Lumbar Spine (L1-L4): g/cm2 (0.930) / T-score (-1.1) / Z-score (0.5) Findings are suggestive of osteopenia with a low fracture risk. Left Femur Total: g/cm2 (0.761) / T-score (-1.5) / Z-score (-0.4) Left Femoral Neck: g/cm2 (0.589) / T-score (-2.3) / Z-score (-1.0) Right Femur Total: g/cm2 (0.760) / T-score (-1.5) / Z-score (-0.4) Right Femoral Neck: g/cm2 (0.673) / T-score (-1.6) / Z-score (0.2) The T-Scores on the most recent prior examination were: Lumbar Spine (L1-L4): There has been no change of bone density since the previous examination. Left Femur Total: which represents an improvement of 7.5%. Right Femur Total: which represents an improvement of 7.4%. BD/Dexa Bone Density Study IMPRESSION: The patient is considered osteopenic as outlined below according to World Matthew Organization (WHO) criteria with a high fracture risk. There has been improvement of bone density since the previous examination. Reference Information: The T-score is the number of standard deviations above or below the standard which is normal for young adults at their peak bone mineral density. The World Health Organization (WHO) interprets the T-scores as follows: Above -1 Normal bone density Between -1 and -2.5 Osteopenia Equal to / or below -2.5 Osteoporosis As a practical clinical guideline, osteopenia may be graded as follows: Mild -1 through -1.5 Moderate -1.6 through -2.0 Severe -2.1 through -2.4 The Z-score is the number of standard deviations above or below age-matched controls. A Z-score of less than -1.5 would be considered abnormal. References: 1. NIH Osteoporosis and Related Bone Diseases www osteo.org 2. International Society for Clinical Densitometry www iscd.org 3. National Osteoporosis Foundation www nof.org Electronically Signed: Jatin Urrutia MD at 14:05 EST , Service support ,
== END ==
PROVIDERS: PCP Family Medicine; Visit Provider Internal Medicine Endocrinology, Diabetes & Metabolism
DX: M81.0 Age-related osteoporosis without current pathological fracture (principal); E21.3 Hyperparathyroidism, unspecified
CPT/HCPCS: 77080

== ENCOUNTER → 2021-01-22 | Outpatient (CLI) | payer MEDICARE, SELFPAY | END | disposition home or self-care (01) | LOC: LABSPEC 01-23 07:36 | PROVIDERS: PCP Family Medicine; Visit Provider Family Medicine | DX: Z20.828 Contact with and (suspected) exposure to other viral communicable diseases (principal) | CPT/HCPCS: 87635; U0005; U0003 ==

== ENCOUNTER → 2021-01-30 10:03 | Outpatient (CLI) | payer MEDICARE, SELFPAY ==
[2021-01-30 10:45] LABS: Hemoglobin A1c 5.1 % (3.8-5.6)
[2021-01-30 11:01] LABS: AST(SGOT) 22 U/L (15-37); Alanine Aminotransfer ALT/SGPT 21 U/L (13-56); Albumin, Serum 3.1 g/dL (3.2-5.0); Alkaline Phosphatase 81 U/L (45-117); Anion Gap 4 (5-15); BUN 13 mg/dL (7-18); BUN/Creat Ratio 15.6 RATIO (10-20); Calcium,Total 8.7 mg/dL (8.5-10.1); Chloride 109 mmol/L (98-107); Creatinine, Serum 0.83 mg/dL (0.55-1.02); EST Glomerular Filtration Rate 74 mL/min (>60); Est Glom Filt Rate - Afr Amer 89 mL/min (>60); Globulin 3.1 g/dL (2.2-4.2); Glucose 78 mg/dL (74-106); Phosphorus 3.1 mg/dL (2.5-4.9); Potassium 3.9 mmol/L (3.5-5.1); Protein, Total 6.2 g/dL (6.4-8.2); Sodium Level 141 mmol/L (136-145); Thyroid Stim Hormone (TSH) 0.91 uIU/mL (0.358-3.74)
[2021-01-30 13:31] LABS: PTHIN 62.5 pg/mL (18.4-80.1)
[2021-01-30 13:34] LABS: Vitamin D,25 Hydroxy 78.5 ng/mL
== END ==
PROVIDERS: PCP Family Medicine; Referring Provider Internal Medicine Endocrinology, Diabetes & Metabolism; Visit Provider Internal Medicine Endocrinology, Diabetes & Metabolism
DX: J84.116 Cryptogenic organizing pneumonia (principal); M81.0 Age-related osteoporosis without current pathological fracture; E21.3 Hyperparathyroidism, unspecified; E55.9 Vitamin D deficiency, unspecified; Z79.52 Long term (current) use of systemic steroids
CPT/HCPCS: 36415; 80053; 82306; 82330; 83036; 83970; 84100; 84443

== ENCOUNTER → 2021-03-02 13:02 | Outpatient (CLI) | payer MEDICARE, SELFPAY ==
--- NOTE | 2021-03-02 13:04 | BI_ITS ---
MAMMOGRAPHY - BILATERAL SCREENING 3-D TOMOSYNTHESIS REASON FOR EXAM: Female, 60 years old. SCREENING PERTINENT HISTORY: No significant family history. TECHNIQUE: 2-D mammograms and 3-D Tomosynthesis of the breast (s) were performed. CAD was performed. COMPARISON: 01/21/2020 FINDINGS: The breast composition is composed of scattered fibroglandular density. Scattered benign calcifications are seen. No dense spiculated masses or suspicious microcalcifications are identified. No architectural distortion is identified. There is no skin thickening or retraction. There has been no significant change since the prior study. BI/SCRN MAMM (CAD)W/JONNIE BILAT IMPRESSION: No mammographic signs of malignancy. Routine yearly mammograms recommended. ASSESSMENT CATEGORY: BIRADS Category 1: Negative. A letter regarding these results will be sent to the patient by the facility within 30 days. FOLLOW UP RECOMMENDATION: Yearly follow up mammogram recommended. (A) Approximately 10% of breast cancers are not detected by mammography. A normal mammogram should not delay biopsy of a clinically suspicious abnormality. Electronically Signed: Everett Adhikari MD at 14:49 EST Tel , Service support ,
== END ==
PROVIDERS: PCP Family Medicine; Referring Provider Obstetrics & Gynecology; Visit Provider Obstetrics & Gynecology
DX: Z12.31 Encounter for screening mammogram for malignant neoplasm of breast (principal)
CPT/HCPCS: 77063; 77067

== ENCOUNTER 2021-03-24 11:13 | Outpatient (RCR) | payer MEDICARE, SELFPAY ==
[2021-01-04 05:22] VITALS: BMI 25.9
[2021-03-24 13:48] LABS: Hemoglobin 13.3 g/dL (12.0-15.0); Mean Corp Hgb Conc 30.9 g/dL (32-36); Mean Corpuscular Hgb 28.7 pg (27.0-32.0); Mean Corpuscular Volume 92.9 fL (81-99); Mean Platelet Vol. 10.6 fl (6.2-12.0); Platelet Count 152 K/mm3 (150-450); RBC Distribution Width CV 14.1 % (11.6-14.6); RBC Distribution Width SD 47.3 fl (35.1-43.9); Red Blood Count 4.63 M/mm3 (4.2-5.4); White Blood Count 5.5 K/mm3 (4.4-11.0)
[2021-03-24 14:14] LABS: AST(SGOT) 17 U/L (15-37); Alanine Aminotransfer ALT/SGPT 24 U/L (13-56); Albumin, Serum 3.6 g/dL (3.2-5.0); Alkaline Phosphatase 79 U/L (45-117); BUN 16 mg/dL (7-18); Bilirubin, Direct 0.08 mg/dL (0.00-0.30); Globulin 2.8 g/dL (2.2-4.2); Protein, Total 6.4 g/dL (6.4-8.2)
== END 2021-04-06 18:00 | disposition home or self-care (01) ==
LOC: LAB 11:13
PROVIDERS: Family Provider Family Medicine; PCP Family Medicine; Referring Provider Internal Medicine Pulmonary Disease; Visit Provider Internal Medicine Pulmonary Disease
DX: J45.20 Mild intermittent asthma, uncomplicated (principal); J84.116 Cryptogenic organizing pneumonia
CPT/HCPCS: 36415; 80076; 84520; 85027

== ENCOUNTER 2021-03-31 14:16 | Outpatient (CLI) | payer MEDICARE, SELFPAY | END 2021-03-31 23:59 | disposition short-term general hospital (02) | LOC: PSN 14:19 | PROVIDERS: PCP Family Medicine; Referring Provider Internal Medicine Pulmonary Disease; Visit Provider Internal Medicine Pulmonary Disease | DX: U07.1 COVID-19 (principal) | CPT/HCPCS: 87635; 87804; 87807; C9803; U0003; U0005 ==

== ENCOUNTER 2021-04-01 14:24 | Outpatient (CLI) | payer MEDICARE, SELFPAY ==
[2021-04-01 14:54] VITALS: BP 124/66; PULSE 105; RESP 16; TEMP 36.8; O2SAT 98; BMI 26.6
[2021-04-01] MEDS: 0.9% Saline Lock 10 ML Syringe IV (14:54)
[2021-04-01 15:28] VITALS: BP 110/62; PULSE 84; RESP 16; TEMP 36.9; O2SAT 99
[2021-04-01 16:24] VITALS: BP 129/67; PULSE 79; RESP 16; TEMP 36.4; O2SAT 98
== END 2021-04-01 23:59 | disposition home or self-care (01) ==
LOC: MS3OUT 14:26 → MS3 14:26
PROVIDERS: PCP Family Medicine; Referring Provider Internal Medicine Pulmonary Disease; Visit Provider Internal Medicine Pulmonary Disease
DX: Z23 Encounter for immunization (principal); U07.1 COVID-19
CPT/HCPCS: J7050; M0247; A4216; Q0247

== ENCOUNTER 2021-05-25 10:12 | Emergency (ER) | payer MEDICARE, SELFPAY ==
[2021-05-25 10:12] VITALS: BP 146/73; PULSE 87; RESP 18; TEMP 35.9; O2SAT 96; BMI 27.1
--- NOTE | 2021-05-25 10:25 | EX.ED.DYSGE1 ---
HPI History of Present Illness Chief Complaint: Bite Detail of Chief Complaint: Insect bite right elbow concern for anaphylactic reaction Informant: patient Onset/Context/Timing Onset: Hours (1) Context: Sudden Onset Timing: Continuous Quality: Sensation and redness Location: Right elbow Current Severity: Mild Maximum Severity: Moderate Worsened by: Insect bite Relieved by: Nothing Associated Symptoms Associated Symptoms: No other symptoms Narrative Narrative: Patient is a 60-year-old woman who presents because of insect bite right elbow. This occurred approximate 1 hour prior to presentation. She denies orthostatic symptoms. She denies swelling of her lips, tongue or throat. She denies trouble with speech. She denies shortness of breath. She denies chest pain. She denies nausea or vomiting. She denies any other symptoms. Prior similar symptoms: No Recent Illness/Hospitalization: No PFSH PFSH Home Medications cholecalciferol (vitamin D3) 5,000 unit PO QWEEK 04/19/13 [History Last Taken Unknown] cyanocobalamin (vitamin B-12) 1,000 mcg PO DAILY@0800 04/19/13 [History Last Taken Unknown] prednisone 5 mg PO DAILY 08/23/13 [History Last Taken Unknown] sertraline 100 mg PO BID 08/23/13 [History Last Taken Unknown] fexofenadine-pseudoephedrine [Bess-D 12 Hour Tablet] 1 ea PO PRN PRN 07/25/14 [History Last Taken Unknown] levalbuterol tartrate [Xopenex Hfa (SP)] 1 puff INHALATION Q4H 07/25/14 [History Last Taken Unknown] mycophenolate mofetil 1,000 mg PO BID 06/09/19 [History Last Taken Unknown] naltrexone 50 mg PO DAILY 06/09/19 [History Last Taken Unknown] hydroxychloroquine [Plaquenil] 200 mg PO QODAY 04/01/21 [History Last Taken 04/01/21] hydroxychloroquine [Plaquenil] 400 mg PO QODAY 04/01/21 [History Last Taken 03/31/21] pregabalin [Lyrica] 50 mg PO BID 04/01/21 [History Last Taken Unknown] Allergy/AdvReac Type Severity Reaction Status Date / Time Penicillins Allergy Intermediate Rash Verified 06/09/19 09:29 aspirin Allergy Anaphylaxis Verified 04/04/20 09:29 cephalexin monohydrate Allergy Rash Verified 06/09/19 09:29 [From Keflex] clindamycin HCl Allergy Rash Verified 06/09/19 09:29 [From Cleocin] clindamycin palmitate HCl Allergy Rash Verified 06/09/19 09:29 [From Cleocin] clindamycin phosphate Allergy Rash Verified 06/09/19 09:29 [From Cleocin] ibuprofen Allergy Anaphylaxis Verified 06/09/19 09:29 Sulfa (Sulfonamide Allergy Rash Verified 06/09/19 09:29 Antibiotics) aripiprazole [From Abilify] AdvReac Swelling Verified 06/09/19 09:29 Social History (Updated 05/25/21 @ 10:[address] Mateusz Galarza MD) household members: none Smoking Status: Never smoker substance use type: does not use ROS ROS ED Constitutional Constitutional ED: Denies chills or fever(s) ENT ENT ED: Denies ear pain, rhinorrhea or sore throat Cardiovascular Cardiovascular: Denies chest pain or palpitations Respiratory/Chest Respiratory/Chest: Denies cough, dyspnea or dyspnea on exertion Gastrointestinal Gastrointestinal: Denies diarrhea, nausea or vomiting Integumentary Reports rash; Denies abscess or Abrasions Allergic/Immunologic Allergic/Immunologic ED: Denies mouth swelling, tongue swelling or urticaria EXAM Physical Exam Const Vital Signs: 05/25/21 10:12 Temperature 96.6 F L Temperature Source Temporal Pulse Rate 87 Respiratory Rate 18 Blood Pressure 146/73 H Blood Pressure Mean 97 Pulse Ox 96 Oxygen Delivery Method Room Air Positive well nourished and well developed General Appearance ED: well developed and NAD; Negative for cyanotic, diaphoretic or pallor HEENT Reports moist mucous membranes HEENT Narrative: There is no evidence of angioedema. Negative for trauma or tenderness Eyes PERRL and EOMs intact bilaterally General Eye ED: Negative for pale conjunctiva or scleral icterus Neck no lymphadenopathy, supple and no JVD Neck Narrative: Trachea is midline. There is no in-store expiratory stridor. Resp normal respiratory effort and clear to auscultation bilaterally Cardio regular rate, regular rhythm, S1 normal heart sound, S2 normal heart sound and no murmurs Neuro oriented x3 and CN's II-XII intact bilaterally Sensorium / Orientation: alert Motor Exam: strength 5/5 throughout Psych mental status grossly normal Skin No no rashes or lesions noted and No no wounds Skin Narrative: There is an area of erythema right elbow size of a quarter. There is no lymphangitis, warmth or induration. There is a small abraded area. Patient made the comment that her skin is fragile . General Skin Exam: Negative for jaundice or pallor MDM MDM MDM Narrative Medical decision making narrative: Patient presents with localized allergic reaction to insect bite. There is no evidence of systemic findings. She was treated with H1 and H2 deann. Discharge Plan Triage Chief Complaint: Bite ED Provider: Mateusz Galarza Dx/Rx/DC Orders Clinical Impression: Allergic reaction Prescriptions: No Action cyanocobalamin (vitamin B-12) 500 MCG tablet 1,000 mcg PO DAILY@0800 RF: 0 cholecalciferol (vitamin D3) 2,000 UNIT tablet 5,000 unit PO QWEEK RF: 0 sertraline 100 MG tablet 100 mg PO BID RF: 0 prednisone 5 MG tablet 5 mg PO DAILY RF: 0 fexofenadine-pseudoephedrine [Bess-D 12 Hour] 1 EACH tablet extended release 12 hr 1 ea PO PRN PRN (Reason: Allergies) RF: 0 levalbuterol tartrate [Xopenex HFA] 1 PUFF HFA aerosol inhaler 1 puff inhalation Q4H RF: 0 mycophenolate mofetil 500 MG tablet 1,000 mg PO BID RF: 0 naltrexone 50 MG tablet 50 mg PO DAILY RF: 0 hydroxychloroquine [Plaquenil] 200 mg Tablet 200 mg PO QODAY RF: 0 hydroxychloroquine [Plaquenil] 200 mg Tablet 400 mg PO QODAY RF: 0 pregabalin [Lyrica] 50 mg Capsule 50 mg PO BID RF: 0 Primary Care Provider: Benjamin Armstrong Referrals: Benjamin Armstrong MD [Primary Care Provider] - As Needed Activity Restrictions/Additional Instructions: 1. Take 1 Benadryl capsule or tablet every 6 hours the next 3 days. 2. Take one of your Pepcid tablets in the morning and at night for the next 3 days. 3. If there is any concern for infection per our discussion see your doctor or return to the emergency department 4. If you develop any difficulty breathing, swelling of your lips, tongue or throat return to the emergency department immediately Disposition Disposition: Home, Self Care
[2021-05-25] MEDS: DiphenhydrAMINE 25 MG Capsule PO (10:37)
[2021-05-25] MEDS: Famotidine 20 MG Tablet PO (10:37)
--- NOTE | 2021-05-25 10:40 | ED.RN ---
pt c/o itching. redness to face and neck noted. reports feeling increased anxiety and heart feels like its pounding hard. dr can aware. to observe pt.
[2021-05-25 12:09] VITALS: PULSE 75; RESP 16; O2SAT 99
== END 2021-05-25 14:18 | disposition home or self-care (01) ==
PROVIDERS: Emergency Provider Emergency Medicine; PCP Family Medicine; Visit Provider Emergency Medicine
DX: S50.361A Insect bite (nonvenomous) of right elbow, initial encounter (principal); W57.XXXA Bitten or stung by nonvenomous insect and other nonvenomous arthropods, initial encounter; Y93.9 Activity, unspecified; Y92.9 Unspecified place or not applicable
CPT/HCPCS: 99285; A4216

== ENCOUNTER → 2021-06-26 | Outpatient (CLI) | payer MEDICARE, SELFPAY ==
[2021-06-26 08:14] VITALS: BP 129/81; PULSE 71; RESP 16; TEMP 35.8; O2SAT 98
[2021-06-26] MEDS: Cosyntropin 0.25 MG Vial IM (08:30)
[2021-06-26 09:45] VITALS: BP 135/77; PULSE 78; RESP 16; O2SAT 99
== END | disposition home or self-care (01) ==
LOC: MEDOUTP 08:05
PROVIDERS: PCP Family Medicine; Referring Provider Internal Medicine Pulmonary Disease; Visit Provider Internal Medicine Pulmonary Disease
DX: Z79.899 Other long term (current) drug therapy (principal)
CPT/HCPCS: 36415; 82533; 96372; J0834

== ENCOUNTER 2021-06-30 09:52 | Outpatient (RCR) | payer MEDICARE, SELFPAY ==
[2021-04-07 02:33] VITALS: BMI 25.9
[2021-06-30 10:07] LABS: Hematocrit 38.3 % (37-47); Hemoglobin 11.9 g/dL (12.0-15.0); Mean Corp Hgb Conc 31.1 g/dL (32-36); Mean Corpuscular Hgb 28.8 pg (27.0-32.0); Mean Corpuscular Volume 92.7 fL (81-99); Mean Platelet Vol. 10.5 fl (6.2-12.0); Platelet Count 150 K/mm3 (150-450); RBC Distribution Width CV 14.9 % (11.6-14.6); RBC Distribution Width SD 50.4 fl (35.1-43.9); Red Blood Count 4.13 M/mm3 (4.2-5.4); White Blood Count 4.5 K/mm3 (4.4-11.0)
[2021-06-30 10:41] LABS: AST(SGOT) 28 U/L (15-37); Alanine Aminotransfer ALT/SGPT 23 U/L (13-56); Albumin, Serum 3.1 g/dL (3.2-5.0); Alkaline Phosphatase 86 U/L (45-117); BUN 11 mg/dL (7-18); Globulin 2.8 g/dL (2.2-4.2); Protein, Total 5.9 g/dL (6.4-8.2)
== END 2021-06-30 18:00 | disposition home or self-care (01) ==
LOC: LAB 09:52
PROVIDERS: Family Provider Family Medicine; PCP Family Medicine; Referring Provider Internal Medicine Pulmonary Disease; Visit Provider Internal Medicine Pulmonary Disease
DX: J45.20 Mild intermittent asthma, uncomplicated (principal); J84.116 Cryptogenic organizing pneumonia
CPT/HCPCS: 36415; 80076; 84520; 85027

== ENCOUNTER → 2021-10-28 | Outpatient (CLI) | payer MEDICARE, SELFPAY ==
[2021-10-28 17:15] LABS: Color, Urine Yellow (Yellow); Glucose, Dipstick Normal (Normal); Ketone-Dipstick Negative (Negative); Leukocyte Esterase-Dipstick 25 /ul (Negative); Nitrite-Dipstick Negative (Negative); Occult Blood-Urine Negative /ul (Negative); Protein-Dipstick Negative (Negative); Urine Bilirubin Dipstick Negative (Negative); Urine Clarity Clear (Clear); Urine Urobilinogen Normal (Normal)
[2021-10-30 16:23] LABS: Angiotensin Convert Enzyme 92 U/L (14-82)
== END | disposition home or self-care (01) ==
LOC: LAB 15:08
PROVIDERS: PCP Family Medicine; Referring Provider Internal Medicine Pulmonary Disease; Visit Provider Internal Medicine Pulmonary Disease
DX: R82.90 Unspecified abnormal findings in urine (principal); J84.116 Cryptogenic organizing pneumonia; M81.8 Other osteoporosis without current pathological fracture
CPT/HCPCS: 36415; 81002; 82164; 87086; 87088

== ENCOUNTER → 2021-10-30 | Outpatient (CLI) | payer MEDICARE, SELFPAY | END | disposition home or self-care (01) | PROVIDERS: PCP Family Medicine; Visit Provider Family Medicine | DX: R30.0 Dysuria (principal) | CPT/HCPCS: 87086; 87088 ==

== ENCOUNTER → 2021-11-12 | Outpatient (CLI) | payer MEDICARE, SELFPAY ==
[2021-11-12 12:52] LABS: PTHIN 89.1 pg/mL (18.4-80.1)
[2021-11-12 12:57] LABS: Vitamin D,25 Hydroxy 67.8 ng/mL
[2021-11-12 13:06] LABS: ALB/GLOB Ratio 1.3 RATIO (0.9-2.4); AST(SGOT) 24 U/L (15-37); Alanine Aminotransfer ALT/SGPT 17 U/L (13-56); Albumin, Serum 3.6 g/dL (3.2-5.0); Alkaline Phosphatase 77 U/L (45-117); Anion Gap 6 (5-15); BUN 13 mg/dL (7-18); BUN/Creat Ratio 17.2 RATIO (10-20); Chloride 106 mmol/L (98-107); Creatinine, Serum 0.76 mg/dL (0.55-1.02); EST Glomerular Filtration Rate 82 mL/min (>60); Est Glom Filt Rate - Afr Amer 99 mL/min (>60); Globulin 2.7 g/dL (2.2-4.2); Glucose 80 mg/dL (74-106); Protein, Total 6.3 g/dL (6.4-8.2); Sodium Level 141 mmol/L (136-145); Thyroid Stim Hormone (TSH) 1.19 uIU/mL (0.358-3.74)
== END | disposition home or self-care (01) ==
LOC: LAB 12:01
PROVIDERS: PCP Family Medicine; Visit Provider Internal Medicine Endocrinology, Diabetes & Metabolism
DX: E21.3 Hyperparathyroidism, unspecified (principal); J84.116 Cryptogenic organizing pneumonia; M81.0 Age-related osteoporosis without current pathological fracture; Z79.52 Long term (current) use of systemic steroids; E55.9 Vitamin D deficiency, unspecified
CPT/HCPCS: 36415; 80053; 82306; 82330; 83970; 84100; 84443

== ENCOUNTER → 2021-12-21 | Outpatient (CLI) | payer MEDICARE, SELFPAY ==
[2021-12-21 12:39] LABS: Absolute Lymphocyte Count 1.79 X10^3/uL (0.83-4.51); Absolute Neutrophil Count 1.8 X10^3/uL (2.0-7.7); Basophil# 0.01 X10^3/uL; Basophil% 0.2 % (0-1); Eosinophil# 0.07 X10^3/uL; Eosinophils% 1.7 % (0-5); Hemoglobin 11.8 g/dL (12.0-15.0); Lymphocyte # 1.79 X10^3/ul (0.83-4.51); Lymphocyte % 44.2 % (19-41); Mean Corp Hgb Conc 30.3 g/dL (32-36); Mean Corpuscular Hgb 28.1 pg (27.0-32.0); Mean Corpuscular Volume 92.9 fL (81-99); Mean Platelet Vol. 11.3 fl (6.2-12.0); Monocyte# 0.32 X10^3/uL; Monocyte% 7.9 % (0-10); NRBC Flagged by Analyzer 0 % (0-5); Neutrophil # 1.84 X10^3/uL (2.7-7.7); Neutrophil % 45.5 % (47-70); Platelet Count 145 K/mm3 (150-450); RBC Distribution Width CV 13.9 % (11.6-14.6); RBC Distribution Width SD 46.7 fl (35.1-43.9); White Blood Count 4.1 K/mm3 (4.4-11.0)
[2021-12-21 12:40] LABS: Erythrocyte Sedimentation Rate 2 mm/hr (0-30)
[2021-12-21 13:07] LABS: Calcium, Urine (Random) < 5.0 mg/dL (Not Estab.)
[2021-12-21 13:24] LABS: Alkaline Phosphatase 71 U/L (45-117); CRP < 2.90 mg/L (0.0-3.0)
== END | disposition home or self-care (01) ==
LOC: LAB 11:32
PROVIDERS: PCP Family Medicine; Visit Provider Internal Medicine Pulmonary Disease
DX: J45.20 Mild intermittent asthma, uncomplicated (principal); M81.8 Other osteoporosis without current pathological fracture
CPT/HCPCS: 36415; 82310; 82330; 82340; 84075; 85025; 85652; 86140

== ENCOUNTER 2022-03-06 11:08 | Emergency (ER) | payer MEDICARE, SELFPAY ==
[2022-03-06 11:08] VITALS: PULSE 112; RESP 18; TEMP 37.1; O2SAT 93; BMI 25.7
--- NOTE | 2022-03-06 11:35 | EX.ED.VIS.UR ---
HPI HPI - URI History of Present Illness Chief Complaint: Cold Sx Informant: patient Onset/Context/Timing Onset: Weeks (2) Context: Gradual Onset Timing: Continuous Quality: Wheezing Location: Chest Worsened by: - (Nothing) Relieved by: Tylenol Associated Symptoms Associated Symptoms: Positive for Nasal Congestion, Headache, Sinus Pressure, Diarrhea, Shortness of Breath and Productive Cough; Negative for Nausea, Vomiting, Chest Pain, Nonproductive cough or Hemoptysis Narrative Narrative: Patient presents with cough and congestion that has been getting worse over the past 2 weeks. Patient states she has not seen her primary care physician for this. Patient states she started having some shortness of breath over the past couple days. Patient states she feels wheezing in her chest. Patient states she is coughing up green sputum. Patient admits to some diarrhea and sinus pressure. Patient also admits to some nasal congestion and a headache. Patient denies any chest pain. Patient states her fever has been up to 102.2 at home. ROS ROS ED Constitutional Constitutional ED: Reports fever(s); Denies chills Eyes Eyes: Denies blurry vision or change in vision ENT ENT ED: Reports rhinorrhea; Denies sore throat Cardiovascular Cardiovascular: Denies chest pain or palpitations Respiratory/Chest Respiratory/Chest: Reports cough and dyspnea Gastrointestinal Gastrointestinal: Reports diarrhea; Denies nausea or vomiting Genitourinary Genitourinary ED: Denies dysuria or hematuria Musculoskeletal Musculoskeletal: Denies back pain or neck pain Integumentary Denies abscess or rash Neurologic Neurologic: Reports headache(s); Denies weakness Allergic/Immunologic Allergic/Immunologic ED: Denies mouth swelling or urticaria [facility] Medical History (Updated 03/06/22 @ 13:[address] Avery Yang, ) BOOP (bronchiolitis obliterans with organizing pneumonia) Home Medications cholecalciferol (vitamin D3) 50 mcg (2,000 unit) tablet 5,000 unit PO QWEEK 04/19/13 [History Last Taken Unknown] cyanocobalamin (vitamin B-12) 500 mcg tablet 1,000 mcg PO DAILY@0800 04/19/13 [History Last Taken Unknown] prednisone 5 mg tablet 5 mg PO DAILY 08/23/13 [History Last Taken Unknown] sertraline 100 mg tablet 100 mg PO BID 08/23/13 [History Last Taken Unknown] fexofenadine 60 mg-pseudoephedrine ER 120 mg tablet,ext.release,12 hr (Bess-D 12 Hour) 1 ea PO PRN PRN Allergies 07/25/14 [History Last Taken Unknown] levalbuterol tartrate 45 mcg/actuation aerosol inhaler (Xopenex HFA) 1 puff inhalation Q4H 07/25/14 [History Last Taken Unknown] mycophenolate mofetil 500 mg tablet 1,000 mg PO BID 06/09/19 [History Last Taken Unknown] naltrexone 50 mg tablet 50 mg PO DAILY 06/09/19 [History Last Taken Unknown] hydroxychloroquine 200 mg tablet (Plaquenil) 200 mg PO QODAY 04/01/21 [History Last Taken 04/01/21] hydroxychloroquine 200 mg tablet (Plaquenil) 400 mg PO QODAY 04/01/21 [History Last Taken 03/31/21] prednisone 20 mg tablet 60 mg PO DAILY #15 TABLETS 05/25/21 [Rx Last Taken Unknown] pregabalin 100 mg capsule (Lyrica) BID 06/26/21 [History Last Taken Unknown] Allergy/AdvReac Type Severity Reaction Status Date / Time Penicillins Allergy Intermediate Rash Verified 03/06/22 11:11 aspirin Allergy Anaphylaxis Verified 03/06/22 11:11 cephalexin monohydrate Allergy Rash Verified 03/06/22 11:11 [From Keflex] clindamycin HCl Allergy Rash Verified 03/06/22 11:11 [From Cleocin] clindamycin palmitate HCl Allergy Rash Verified 03/06/22 11:11 [From Cleocin] clindamycin phosphate Allergy Rash Verified 03/06/22 11:11 [From Cleocin] ibuprofen Allergy Anaphylaxis Verified 03/06/22 11:11 Sulfa (Sulfonamide Allergy Rash Verified 03/06/22 11:11 Antibiotics) aripiprazole [From Abilify] AdvReac Swelling Verified 03/06/22 11:11 Social History household members: none Smoking Status: Never smoker substance use type: does not use EXAM Physical Exam Const Vital Signs: 03/06/22 11:08 03/06/22 11:38 03/06/22 11:45 Temperature 98.8 F Temperature Source Temporal Pulse Rate 112 H 103 H Respiratory Rate 18 18 Respiratory Effort Normal Non-Labored Respiratory Depth Normal Respiratory Pattern Normal Blood Pressure 138/82 H Blood Pressure Mean 100 Pulse Ox 93 96 Oxygen Delivery Method Room Air Room Air 03/06/22 12:34 Temperature Temperature Source Pulse Rate 103 H Respiratory Rate 17 Respiratory Effort Respiratory Depth Respiratory Pattern Blood Pressure 123/76 H Blood Pressure Mean 91 Pulse Ox 97 Oxygen Delivery Method Room Air Positive well nourished and well developed General Appearance ED: well developed and NAD HEENT Reports moist mucous membranes Neck supple and no JVD Resp normal respiratory effort and clear to auscultation bilaterally Cardio regular rate and regular rhythm GI normal to inspection, nondistended, normoactive bowel sounds and non-tender Palpation: soft Extremity normal to inspection General Extremety ED: Negative for edema or tenderness General Extremity: Negative for edema Neuro oriented x3, CN's II-XII intact bilaterally and no sensory deficits noted Sensorium / Orientation: alert Motor Exam: strength 5/5 throughout Psych mental status grossly normal Skin no rashes or lesions noted MDM MDM MDM Narrative Medical decision making narrative: Patient was given a DuoNeb aerosol here. CBC shows a white blood cell count 3.8. Platelets were slightly low at 121. Comprehensive metabolic profile was essentially within normal limits. PA and lateral chest x-ray was obtained. There are 2 views. On my interpretation, lung olmos are clear. There is normal cardiac silhouette. Bony thorax is normal. There is no acute process noted. Radiologist also interpreted the x-ray and agrees. COVID-19 rapid antigen was obtained and was negative. Influenza antigens were positive for influenza A. Patient was advised of her findings. Patient was advised that Tamiflu will not help since her symptoms started 2 weeks ago. Patient was instructed to drink plenty of fluids. Patient was instructed to follow-up with her primary care physician in 5 to 7 days. Patient understood and was agreeable with the plan. All questions were answered. Lab Data Attestation: I reviewed the patient's lab results. Labs: Laboratory Results - last 24 hr 03/06/22 03/06/22 11:50 11:50 WBC 3.8 L RBC 4.13 L Hgb 11.6 L Hct 38.4 MCV 93.0 MCH 28.1 MCHC 30.2 L RDW Std Deviation 46.6 H RDW Coeff of Frances 13.7 Plt Count 121 L MPV 10.7 Immature Gran % (Auto) 0.500 Neut % (Auto) 64.0 Lymph % (Auto) 25.8 [place] % (Auto) 8.4 Eos % (Auto) 1.0 Baso % (Auto) 0.3 Absolute Neuts (auto) 2.5 Absolute Lymphs (auto) 0.99 Nucleated RBC % 0 Sodium 138 Potassium 3.6 Chloride 106 Carbon Dioxide 28.0 Anion Gap 4 L BUN 19 H Creatinine 0.75 Estim Creat Clear Calc 66.30 Est GFR (MDRD) Af Amer 100 Est GFR (MDRD) Non-Af 82 BUN/Creatinine Ratio 25.2 H Glucose 98 Calcium 8.2 L Total Bilirubin 0.40 AST 22 ALT 17 Alkaline Phosphatase 52 Total Protein 5.9 L Albumin 3.2 Globulin 2.7 Albumin/Globulin Ratio 1.2 Radiography Diagnostic Testing: Clinical Impression(s) from Imaging Studies Chest X-Ray 03/06/22 11:41 IMPRESSION: No Visualized acute focal infiltrate postoperative changes left lower chest. Bony demineralization. Slight interval loss of height at the level of T12. There is mild degenerative change of the visualized thoracic spine. Electronically Signed: Trina Rehman MD at 12:18 EST Reading Location ID and State: [facility] / [place] Tel , Service support , Discharge Plan Triage Chief Complaint: Cold Sx ED Provider: Avery Yang Dx/Rx/DC Orders Clinical Impression: Influenza A, Asthma Instructions: ED Influenza (Adult) Prescriptions: No Action cyanocobalamin (vitamin B-12) 500 MCG tablet 1,000 mcg PO DAILY@0800 Label Comments: dose ?? cholecalciferol (vitamin D3) 2,000 UNIT tablet 5,000 unit PO QWEEK sertraline 100 MG tablet 100 mg PO BID prednisone 5 MG tablet 5 mg PO DAILY fexofenadine-pseudoephedrine [Bess-D 12 Hour] 1 EACH tablet extended release 12 hr 1 ea PO PRN PRN (Reason: Allergies) levalbuterol tartrate [Xopenex HFA] 1 PUFF HFA aerosol inhaler 1 puff inhalation Q4H mycophenolate mofetil 500 MG tablet 1,000 mg PO BID naltrexone 50 MG tablet 50 mg PO DAILY pregabalin [Lyrica] 100 mg Capsule BID hydroxychloroquine [Plaquenil] 200 mg Tablet 200 mg PO QODAY hydroxychloroquine [Plaquenil] 200 mg Tablet 400 mg PO QODAY prednisone 20 MG tablet 60 mg PO DAILY Qty: 15 0RF Primary Care Provider: Benjamin Armstrong Referrals: Benjamin Armstrong MD [Primary Care Provider] - 5-7 Days Disposition Disposition: Home, Self Care
--- NOTE | 2022-03-06 11:41 | RAD_ITS ---
STUDY: X-RAY CHEST REASON FOR EXAM: Female, 61 years old. Cough TECHNIQUE: PA and lateral views of the chest. COMPARISON: November 28, 2021 chest x-ray FINDINGS: This postoperative change within the left lower chest. There is no visualized significant change since the prior study. There is no visualized focal consolidation. There is no visualized pneumothorax. There is no demonstrated pleural abnormality. Normal size heart. Normal mediastinum and rojelio. Normal visualized pulmonary arteries. Normal visualized aortic arch and descending thoracic aorta. There is demineralization of the osseous structures. There is slight suggestion of interval loss of height of 5-10% at T12 when compared to prior study. There is persistent mild disc space narrowing. There is mild multilevel spondylosis. Normal visualized ribs, clavicles, and shoulders. There is no demonstrated abnormality of the visualized soft tissue structures of the upper abdomen. RAD/Chest PA and Lateral IMPRESSION: No Visualized acute focal infiltrate postoperative changes left lower chest. Bony demineralization. Slight interval loss of height at the level of T12. There is mild degenerative change of the visualized thoracic spine. Electronically Signed: Trina Rehman MD at 12:18 EST Reading Location ID and State: [facility] / [place] Tel , Service support ,
[2022-03-06 11:45] VITALS: BP 138/82; PULSE 103; RESP 18; O2SAT 96
[2022-03-06] MEDS: Ipratropium/Albuterol Sulfate 3 ML AMPUL.NEB INHALATION (11:50)
[2022-03-06 11:57] LABS: Absolute Lymphocyte Count 0.99 X10^3/uL (0.83-4.51); Absolute Neutrophil Count 2.5 X10^3/uL (2.0-7.7); Basophil# 0.01 X10^3/uL; Basophil% 0.3 % (0-1); Eosinophil# 0.04 X10^3/uL; Hematocrit 38.4 % (37-47); Hemoglobin 11.6 g/dL (12.0-15.0); Lymphocyte # 0.99 X10^3/ul (0.83-4.51); Lymphocyte % 25.8 % (19-41); Mean Corp Hgb Conc 30.2 g/dL (32-36); Mean Corpuscular Hgb 28.1 pg (27.0-32.0); Mean Platelet Vol. 10.7 fl (6.2-12.0); Monocyte# 0.32 X10^3/uL; Monocyte% 8.4 % (0-10); NRBC Flagged by Analyzer 0 % (0-5); Neutrophil # 2.45 X10^3/uL (2.7-7.7); Platelet Count 121 K/mm3 (150-450); RBC Distribution Width CV 13.7 % (11.6-14.6); RBC Distribution Width SD 46.6 fl (35.1-43.9); Red Blood Count 4.13 M/mm3 (4.2-5.4); White Blood Count 3.8 K/mm3 (4.4-11.0)
[2022-03-06 12:14] LABS: ALB/GLOB Ratio 1.2 RATIO (0.9-2.4); AST(SGOT) 22 U/L (15-37); Alanine Aminotransfer ALT/SGPT 17 U/L (13-56); Albumin, Serum 3.2 g/dL (3.2-5.0); Alkaline Phosphatase 52 U/L (45-117); Anion Gap 4 (5-15); BUN 19 mg/dL (7-18); BUN/Creat Ratio 25.2 RATIO (10-20); Calcium,Total 8.2 mg/dL (8.5-10.1); Chloride 106 mmol/L (98-107); Creatinine, Serum 0.75 mg/dL (0.55-1.02); EST Glomerular Filtration Rate 82 mL/min (>60); Est Glom Filt Rate - Afr Amer 100 mL/min (>60); Globulin 2.7 g/dL (2.2-4.2); Glucose 98 mg/dL (74-106); Potassium 3.6 mmol/L (3.5-5.1); Protein, Total 5.9 g/dL (6.4-8.2); Sodium Level 138 mmol/L (136-145)
[2022-03-06 12:34] VITALS: BP 123/76; PULSE 103; RESP 17; O2SAT 97
== END 2022-03-06 13:10 | disposition home or self-care (01) ==
PROVIDERS: Emergency Provider Emergency Medicine; PCP Family Medicine; Visit Provider Emergency Medicine
DX: J10.1 Influenza due to other identified influenza virus with other respiratory manifestations (principal); J45.909 Unspecified asthma, uncomplicated; R51.9 Headache, unspecified; R19.7 Diarrhea, unspecified; Z20.822 Contact with and (suspected) exposure to COVID-19
CPT/HCPCS: 71046; 80053; 85025; 87428; 94640; 99283; A4216

== ENCOUNTER → 2022-03-17 | Outpatient (CLI) | payer MEDICARE, SELFPAY ==
--- NOTE | 2022-03-17 08:06 | BI_ITS ---
MAMMOGRAPHY - BILATERAL SCREENING REASON FOR EXAM: Female, 61 years old. Routine annual screening examination. PERTINENT HISTORY: Grandmother with breast cancer. TECHNIQUE: Digital bilateral breast jnonie (3D mammographic acquisition) in the CC and MLO projections. 2-D mediolateral oblique (MLO) and craniocaudad (CC) views of both breasts were obtained. CAD: Full Field Digital Mammography with Computer Added Detection was performed. COMPARISON: Comparison is made with prior study dated 03/02/2021. FINDINGS: Breast Composition: There are scattered areas of fibroglandular density. There are no dominant masses or suspicious calcifications. No other significant abnormalities are identified. There has been no significant change since the prior study. BI/SCRN MAMM (CAD)W/JONNIE BILAT IMPRESSION: Stable bilateral screening mammogram. Yearly follow-up mammogram recommended. (A) ASSESSMENT CATEGORY: BIRADS Category 1: Negative. A letter regarding these results will be sent to the patient by the facility within 30 days. Approximately 10% of breast cancers are not detected by mammography. A normal mammogram should not delay biopsy of a clinically suspicious abnormality. [id number] Electronically Signed: Jatin Urrutia MD at 9:00 EST ,
== END | disposition home or self-care (01) ==
LOC: OPBI 08:03
PROVIDERS: PCP Family Medicine; Visit Provider Obstetrics & Gynecology
DX: Z12.31 Encounter for screening mammogram for malignant neoplasm of breast (principal)
CPT/HCPCS: 77063; 77067

== ENCOUNTER 2022-05-14 12:12 | Outpatient (CLI) | payer MEDICARE, SELFPAY ==
[2022-05-14 13:55] LABS: PTHIN 81.4 pg/mL (18.4-80.1)
[2022-05-14 13:59] LABS: Vitamin D,25 Hydroxy 61.4 ng/mL
[2022-05-14 14:04] LABS: Calcium, Urine (Random) < 5.0 mg/dL (Not Estab.)
[2022-05-14 14:06] LABS: ALB/GLOB Ratio 1.4 RATIO (0.9-2.4); AST(SGOT) 26 U/L (15-37); Alanine Aminotransfer ALT/SGPT 24 U/L (13-56); Albumin, Serum 3.8 g/dL (3.2-5.0); Alkaline Phosphatase 63 U/L (45-117); Anion Gap 8 (5-15); BUN 13 mg/dL (7-18); BUN/Creat Ratio 17.5 RATIO (10-20); Chloride 104 mmol/L (98-107); Creatinine, Serum 0.74 mg/dL (0.55-1.02); EST Glomerular Filtration Rate 84 mL/min (>60); Est Glom Filt Rate - Afr Amer 102 mL/min (>60); Free T3 2.8 pg/mL (2.18-3.98); Globulin 2.7 g/dL (2.2-4.2); Glucose 85 mg/dL (74-106); Magnesium 2.1 mg/dL (1.6-2.6); Phosphorus 3.7 mg/dL (2.5-4.9); Potassium 4.1 mmol/L (3.5-5.1); Protein, Total 6.5 g/dL (6.4-8.2); Sodium Level 139 mmol/L (136-145); T4 Free Direct 0.93 ng/dL (0.76-1.46); Thyroid Stim Hormone (TSH) 1.46 uIU/mL (0.358-3.74)
[2022-05-17 16:56] LABS: Vitamin D 1,25-Dihydroxy 84.2 pg/mL (24.8-81.5)
== END 2022-05-14 23:59 | disposition home or self-care (01) ==
LOC: LAB 12:15
PROVIDERS: PCP Internal Medicine; Referring Provider Internal Medicine Endocrinology, Diabetes & Metabolism; Visit Provider Internal Medicine Endocrinology, Diabetes & Metabolism
DX: E21.3 Hyperparathyroidism, unspecified (principal); J84.116 Cryptogenic organizing pneumonia; M81.0 Age-related osteoporosis without current pathological fracture; E55.9 Vitamin D deficiency, unspecified; Z79.52 Long term (current) use of systemic steroids; E03.9 Hypothyroidism, unspecified
CPT/HCPCS: 36415; 80053; 82306; 82330; 82340; 82570; 82652; 83735; 83970; 84100; 84439; 84443; 84481

== ENCOUNTER → 2022-08-10 | Outpatient (CLI) | payer MEDICARE, SELFPAY ==
[2022-08-10 11:22] LABS: Hematocrit 41.2 % (37-47); Hemoglobin 12.4 g/dL (12.0-15.0); Mean Corp Hgb Conc 30.1 g/dL (32-36); Mean Corpuscular Hgb 28.2 pg (27.0-32.0); Mean Corpuscular Volume 93.8 fL (81-99); Mean Platelet Vol. 10.8 fl (6.2-12.0); Platelet Count 121 K/mm3 (150-450); RBC Distribution Width CV 13.9 % (11.6-14.6); RBC Distribution Width SD 47.1 fl (35.1-43.9); Red Blood Count 4.39 M/mm3 (4.2-5.4); White Blood Count 4.1 K/mm3 (4.4-11.0)
[2022-08-10 11:57] LABS: AST(SGOT) 22 U/L (15-37); Alanine Aminotransfer ALT/SGPT 17 U/L (13-56); Albumin, Serum 3.6 g/dL (3.2-5.0); Alkaline Phosphatase 77 U/L (45-117); Bilirubin, Direct 0.09 mg/dL (0.00-0.30); CRP < 2.90 mg/L (0.0-3.0); Globulin 2.6 g/dL (2.2-4.2); Protein, Total 6.2 g/dL (6.4-8.2)
== END | disposition home or self-care (01) ==
LOC: LAB 11:09
PROVIDERS: PCP Internal Medicine; Referring Provider Internal Medicine Pulmonary Disease; Visit Provider Internal Medicine Pulmonary Disease
DX: J84.116 Cryptogenic organizing pneumonia (principal); R06.00 Dyspnea, unspecified; J45.20 Mild intermittent asthma, uncomplicated
CPT/HCPCS: 36415; 80076; 85027; 86140

== ENCOUNTER → 2022-10-12 | Outpatient (CLI) | payer MEDICARE, SELFPAY ==
[2022-10-12 10:32] LABS: Absolute Lymphocyte Count 1.48 X10^3/uL (0.83-4.51); Absolute Neutrophil Count 1.6 X10^3/uL (2.0-7.7); Basophil# 0.01 X10^3/uL; Basophil% 0.3 % (0-1); Eosinophil# 0.05 X10^3/uL; Eosinophils% 1.4 % (0-5); Hematocrit 40.6 % (37-47); Hemoglobin 13.1 g/dL (12.0-15.0); Lymphocyte # 1.48 X10^3/ul (0.83-4.51); Lymphocyte % 42.8 % (19-41); Mean Corp Hgb Conc 32.3 g/dL (32-36); Mean Corpuscular Hgb 29.7 pg (27.0-32.0); Mean Corpuscular Volume 92.1 fL (81-99); Mean Platelet Vol. 10.9 fl (6.2-12.0); Monocyte# 0.29 X10^3/uL; Monocyte% 8.4 % (0-10); NRBC Flagged by Analyzer 0 % (0-5); Neutrophil # 1.62 X10^3/uL (2.7-7.7); Neutrophil % 46.8 % (47-70); Platelet Count 118 K/mm3 (150-450); RBC Distribution Width CV 13.8 % (11.6-14.6); RBC Distribution Width SD 46.9 fl (35.1-43.9); Red Blood Count 4.41 M/mm3 (4.2-5.4); White Blood Count 3.5 K/mm3 (4.4-11.0)
[2022-10-12 11:12] LABS: AST(SGOT) 18 U/L (15-37); Alanine Aminotransfer ALT/SGPT 21 U/L (13-56); Albumin, Serum 3.3 g/dL (3.2-5.0); Alkaline Phosphatase 65 U/L (45-117); Globulin 2.5 g/dL (2.2-4.2); Protein, Total 5.8 g/dL (6.4-8.2)
== END | disposition home or self-care (01) ==
LOC: LAB 09:50
PROVIDERS: PCP Internal Medicine; Referring Provider Dermatology; Visit Provider Dermatology
DX: Z79.899 Other long term (current) drug therapy (principal)
CPT/HCPCS: 36415; 80076; 85025

== ENCOUNTER → 2022-10-26 | Outpatient (CLI) | payer MEDICARE, SELFPAY ==
[2022-10-26 10:14] LABS: Absolute Lymphocyte Count 1.51 X10^3/uL (0.83-4.51); Basophil# 0.01 X10^3/uL; Basophil% 0.3 % (0-1); Eosinophil# 0.06 X10^3/uL; Eosinophils% 1.5 % (0-5); Hematocrit 40.2 % (37-47); Hemoglobin 12.5 g/dL (12.0-15.0); Lymphocyte # 1.51 X10^3/ul (0.83-4.51); Lymphocyte % 38.3 % (19-41); Mean Corp Hgb Conc 31.1 g/dL (32-36); Mean Corpuscular Hgb 29.3 pg (27.0-32.0); Mean Corpuscular Volume 94.1 fL (81-99); Mean Platelet Vol. 10.5 fl (6.2-12.0); Monocyte# 0.31 X10^3/uL; Monocyte% 7.9 % (0-10); NRBC Flagged by Analyzer 0 % (0-5); Neutrophil # 2.04 X10^3/uL (2.7-7.7); Neutrophil % 51.7 % (47-70); Platelet Count 134 K/mm3 (150-450); RBC Distribution Width SD 47.8 fl (35.1-43.9); Red Blood Count 4.27 M/mm3 (4.2-5.4); White Blood Count 3.9 K/mm3 (4.4-11.0)
== END | disposition home or self-care (01) ==
LOC: LAB 10:01
PROVIDERS: PCP Dermatology; Referring Provider Dermatology; Visit Provider Dermatology
DX: Z79.899 Other long term (current) drug therapy (principal)
CPT/HCPCS: 36415; 85025

== ENCOUNTER → 2022-11-17 | Outpatient (CLI) | payer MEDICARE, SELFPAY ==
[2022-11-17 10:02] LABS: Hematocrit 41.7 % (37-47); Hemoglobin 12.6 g/dL (12.0-15.0); Mean Corp Hgb Conc 30.2 g/dL (32-36); Mean Corpuscular Hgb 29.3 pg (27.0-32.0); Mean Platelet Vol. 11.1 fl (6.2-12.0); Platelet Count 139 K/mm3 (150-450); RBC Distribution Width CV 13.6 % (11.6-14.6); RBC Distribution Width SD 48.3 fl (35.1-43.9); White Blood Count 3.7 K/mm3 (4.4-11.0)
== END | disposition home or self-care (01) ==
LOC: LAB 09:19
PROVIDERS: PCP Internal Medicine; Referring Provider Internal Medicine Pulmonary Disease; Visit Provider Internal Medicine Pulmonary Disease
DX: R06.02 Shortness of breath (principal)
CPT/HCPCS: 36415; 85027

== ENCOUNTER 2022-11-18 21:00 | Emergency (ER) | payer MEDICARE, SELFPAY ==
[2022-11-18 21:02] VITALS: BP 135/70; PULSE 73; RESP 16; TEMP 36.6; O2SAT 100; BMI 24.9
--- NOTE | 2022-11-18 21:17 | CT_ITS ---
STUDY: CT BRAIN WITHOUT CONTRAST REASON FOR EXAM: Female, 62 years old. head injury RADIATION DOSAGE (If Supplied By Facility): CTDIvol = ( 44.99 ) mGy, DLP = ( 779.24 ) mGycm TECHNIQUE: Transaxial CT imaging of the brain was performed without administration of intravenous contrast material. Individualized dose optimization techniques were used for this CT. COMPARISON: No relevant priors. FINDINGS: Normal soft tissue structures. Normal calvarium. Normal size ventricles and extra-axial spaces for the patient''s age. Normal white matter tracts of the cerebral hemispheres. Normal basal ganglia and thalami. Normal brainstem. Normal cerebellum. There is no intracranial hemorrhage. There are no findings of an acute ischemic infarction. Mucosal thickening and thickening of the mariee of the maxillary sinuses consistent with chronic sinusitis. CT/Brain/Head without Contrast IMPRESSION: Normal unenhanced CT scan of the brain. Electronically Signed: Everett Adhikari MD at 22:20 EDT ,
--- NOTE | 2022-11-18 21:18 | EX.ED.GENINJ ---
HPI History of Present Illness Chief Complaint: Head Injury Informant: patient Narrative Narrative: Presents for evaluation waxing waning posterior headache after a fall, down a ladder 5 days ago. She missed the last step in the back of her head denies loss conscious. She denies any anticoagulation medications. She states 3 days ago had her right cataract surgery by Dr. Brown. She states she did not have a headache at that time. She did not tell her doctor her injury event. She wears reading glasses. Today noted increasing headache along with slight pain in the left eye. She states left eye has not had surgery. Denies visual changes. Denies nausea or vomiting. Prior similar symptoms: No PFSH PFSH Medical History (Updated 11/18/22 @ 22:[address] 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 Neuropathy Osteoarthritis Osteopenia Parathyroid abnormality Pneumonia Psoriasis Rectocele Right rib fracture Seasonal allergies Suicide attempt UTI (urinary tract infection) Vitamin deficiency Home Medications cholecalciferol (vitamin D3) 50 mcg (2,000 unit) tablet 5,000 unit PO QWEEK 04/19/13 [History Last Taken Unknown] cyanocobalamin (vitamin B-12) 500 mcg tablet 1,000 mcg PO DAILY@0800 04/19/13 [History Last Taken Unknown] betamethasone dipropionate 0.05 % topical cream 1 applic topical DAILY PRN skin irritation 06/03/22 [History Last Taken Unknown] carboxymethylcellulose sodium 0.25 % eye drops (Lubricant Eye Drops) 1 drp ophthalmic (eye) 4-6XD PRN dry eye(s) 06/03/22 [History Last Taken Unknown] cell cept See Rx Instructions PO 2XD 06/03/22 [History Last Taken Unknown] denosumab 60 mg/mL subcutaneous syringe (Prolia) 60 mg subcut [id number] 06/03/22 [History Last Taken Unknown] fluticasone furoate 100 mcg-vilanterol 25 mcg/dose inhalation powder (Breo Ellipta) 1 inh inhalation DAILY 06/03/22 [History Last Taken Unknown] hydroxychloroquine 200 mg tablet (Plaquenil) 300 mg PO QODAY 06/03/22 [History Last Taken Unknown] levalbuterol tartrate 45 mcg/actuation aerosol inhaler (Xopenex HFA) 2 puff inhalation Q4H PRN shortness of breath or wheezing 06/03/22 [History Last Taken Unknown] pregabalin 100 mg capsule (Lyrica) See Rx Instructions .Route .COMPLEX 06/03/22 [History Last Taken Unknown] biotin 1,000 mcg chewable tablet 1,000 mcg PO DAILY 08/30/22 [History Last Taken Unknown] sertraline 100 mg tablet 100 mg PO BID #180 tabs 09/29/22 [Rx Last Taken Unknown] Allergy/AdvReac Type Severity Reaction Status Date / Time ciprofloxacin [From Cipro] Allergy Severe Other Verified 11/18/22 21:04 codeine Allergy Intermediate Other Verified 11/18/22 21:04 nitrofurantoin Allergy Intermediate Anaphylaxis Verified 11/18/22 21:04 [From Macrobid] Penicillins Allergy Intermediate Rash Verified 11/18/22 21:04 aspirin Allergy Anaphylaxis Verified 11/18/22 21:04 azathioprine Allergy PT UNABLE Verified 11/18/22 21:04 TO RESPOND-NEEDS F/U cephalexin monohydrate Allergy Rash Verified 11/18/22 21:04 [From Keflex] clindamycin HCl Allergy Rash Verified 11/18/22 21:04 [From Cleocin] clindamycin palmitate HCl Allergy Rash Verified 11/18/22 21:04 [From Cleocin] clindamycin phosphate Allergy Rash Verified 11/18/22 21:04 [From Cleocin] ibuprofen Allergy Anaphylaxis Verified 11/18/22 21:04 Sulfa (Sulfonamide Allergy Rash Verified 11/18/22 21:04 Antibiotics) spider venom AdvReac Severe Anaphylaxis Verified 11/18/22 21:04 aripiprazole [From Abilify] AdvReac Swelling Verified 11/18/22 21:04 Family History Daughter Anemia Anxiety STD (female) Sister Asthma Arthritis Autoimmune disease Bowel disease Osteoporosis Psychiatric care Cancer Thyroid disorder Mother Arthritis Autoimmune disease Hypertension Osteoporosis Respiratory disease Cancer CVA (cerebral vascular accident) Thyroid disorder Trigeminal neuralgia Grandmother Arthritis Breast cancer Hypertension Osteoporosis CVA (cerebral vascular accident) Thyroid disorder Grandfather Cancer melanoma Diabetes Myocardial infarction Severe allergy Father Diabetes Heart disease High cholesterol Respiratory disease Peptic ulcer disease Surgical History H/O nasal polyp History of bladder suspension procedure History of bunionectomy History of thoracotomy Social History adopted: No household members: none housing: house number of children: 2 current occupational status: disabled pets and animals: Yes (2) pets and animals: cat(s) leisure activities: exercise, art, music and reading history of recent travel: Yes ([place]) out of state: Yes out of country: No sexually active: No Smoking Status: Never smoker alcohol intake: current details: socially substance use type: does not use well-balanced diet: daily or most days caffeine: No eating out: 1-3 times/week during the past year weight has: remained stable what type of physical activity do you participate in: walking frequency: 3-4 times per week sujata/yarsani: Scientologist seatbelt use: always do you feel safe at home: Yes EXAM Physical Exam Const Vital Signs: 11/18/22 21:02 11/18/22 21:30 Temperature 97.9 F Temperature Source Temporal Pulse Rate 73 Respiratory Rate 16 Respiratory Effort Normal Non-Labored Respiratory Depth Normal Respiratory Pattern Normal Blood Pressure 135/70 H Blood Pressure Mean 91 Pulse Ox 100 Oxygen Delivery Method Room Air Room Air MDM MDM MDM Narrative Medical decision making narrative: Interventions / MDM: Differential diagnosis: Concussion Diagnosis considered but do not suspect: Intracranial hemorrhage however CT negative. Glaucoma however no fixed dilated pupil. My EKG interpretation: N/A Imaging independently reviewed and interpreted by myself: CT brain: No acute process also read by radiology. External documents reviewed: N/A Test considered but not ordered:N/A ED course: Patient head injury 5 days of intermittent headaches. Today left eye pain. Pupils equal reactive to light. Status post cataract to the right eye [address] brain was ordered. Patient declined any medications. CT results are negative. Patient reassured discussed postconcussion symptoms. She will use Tylenol as needed. Outpatient follow-up. All questions were answered. Re-evaluation: stable Disposition discussed with patient/family/significant other: Patient Case discussed with consulting clinician: N/A This note was generated with [employer] dictation software. It may contain incorrect words, spelling, and punctuation that were not noted in checking the note before signing. Radiography Diagnostic Testing: Clinical Impression(s) from Imaging Studies Brain CT 11/18/22 21:17 IMPRESSION: Normal unenhanced CT scan of the brain. Electronically Signed: Everett Adhikari MD at 22:20 EDT , Discharge Plan Triage Chief Complaint: Head Injury ED Provider: Miguel A Barney Dx/Rx/DC Orders Clinical Impression: Post-concussion headache Instructions: Self-Care for Headaches, ED Concussion Prescriptions: No Action fluticasone furoate-vilanterol [Breo Ellipta] 100-25 mcg/dose blister with device 1 inh inhalation DAILY betamethasone dipropionate 0.05 % cream 1 applic topical DAILY PRN (Reason: skin irritation) Prolia 60 mg/mL syringe 60 mg subcut [id number] Lubricant Eye Drops 0.25 % drops 1 drp ophthalmic (eye) 4-6XD PRN (Reason: dry eye(s)) cell cept capsule See Rx Instructions PO 2XD Rx Instructions: 2 orally 2 times daily; biotin 1,000 mcg tablet,chewable 1,000 mcg PO DAILY cyanocobalamin (vitamin B-12) 500 MCG tablet 1,000 mcg PO DAILY@0800 Patient Comments: dose ?? cholecalciferol (vitamin D3) 2,000 UNIT tablet 5,000 unit PO QWEEK levalbuterol tartrate [Xopenex HFA] 45 mcg/actuation HFA aerosol inhaler 2 puff inhalation Q4H PRN (Reason: shortness of breath or wheezing) pregabalin [Lyrica] 100 mg capsule See Rx Instructions .ROUTE .COMPLEX Rx Instructions: QID; hydroxychloroquine [Plaquenil] 200 mg tablet 300 mg PO QODAY sertraline 100 mg tablet 100 mg PO BID Qty: 180 3RF Primary Care Provider: Yaa Gonzalez Referrals: Yaa Gonzalez MD [Primary Care Provider] - 1 Week if not improving Activity Restrictions/Additional Instructions: CT brain negative. Can use Tylenol 1 g every 6 hours as needed. Follow-up with your doctor. Disposition Disposition: Home, Self Care
[2022-11-18 22:33] VITALS: BP 112/76; PULSE 80; RESP 16; TEMP 36.9; O2SAT 99
== END 2022-11-18 22:44 | disposition home or self-care (01) ==
PROVIDERS: Emergency Provider Emergency Medicine; PCP Internal Medicine; Visit Provider Emergency Medicine
DX: G44.309 Post-traumatic headache, unspecified, not intractable (principal); E78.00 Pure hypercholesterolemia, unspecified; M85.80 Other specified disorders of bone density and structure, unspecified site; Z79.899 Other long term (current) drug therapy; M19.90 Unspecified osteoarthritis, unspecified site; Z98.41 Cataract extraction status, right eye; W11.XXXA Fall on and from ladder, initial encounter
CPT/HCPCS: 70450; 99282

== ENCOUNTER 2023-01-31 09:45 | Outpatient (CLI) | payer MEDICARE, SELFPAY ==
[2023-01-31 10:16] LABS: Ionized Calcium 4.93 mg/dL (4.36-5.20)
[2023-01-31 11:26] LABS: PTHIN 66.5 pg/mL (18.4-80.1)
[2023-01-31 11:28] LABS: Calcium, Urine (Random) < 5.0 mg/dL (Not Estab.)
[2023-01-31 11:31] LABS: Vitamin D,25 Hydroxy 46.7 ng/mL
[2023-01-31 11:38] LABS: ALB/GLOB Ratio 1.2 RATIO (0.9-2.4); AST(SGOT) 18 U/L (15-37); Alanine Aminotransfer ALT/SGPT 21 U/L (13-56); Albumin, Serum 3.3 g/dL (3.2-5.0); Alkaline Phosphatase 79 U/L (45-117); Anion Gap 6 (5-15); BUN 16 mg/dL (7-18); BUN/Creat Ratio 22.3 RATIO (10-20); Calcium,Total 8.2 mg/dL (8.5-10.1); Chloride 106 mmol/L (98-107); Creatinine, Serum 0.72 mg/dL (0.55-1.02); EST Glomerular Filtration Rate 87 mL/min (>60); Est Glom Filt Rate - Afr Amer 105 mL/min (>60); Globulin 2.8 g/dL (2.2-4.2); Glucose 88 mg/dL (74-106); Magnesium 2.4 mg/dL (1.6-2.6); Potassium 4.2 mmol/L (3.5-5.1); Protein, Total 6.1 g/dL (6.4-8.2); Sodium Level 138 mmol/L (136-145); T4 Free Direct 0.83 ng/dL (0.76-1.46); Thyroid Stim Hormone (TSH) 2.15 uIU/mL (0.358-3.74)
[2023-02-02 12:08] LABS: Vitamin D 1,25-Dihydroxy 57.8 pg/mL (24.8-81.5)
== END 2023-01-31 23:59 | disposition home or self-care (01) ==
LOC: LAB 09:46
PROVIDERS: PCP Internal Medicine; Referring Provider Internal Medicine Endocrinology, Diabetes & Metabolism; Visit Provider Internal Medicine Endocrinology, Diabetes & Metabolism
DX: E21.3 Hyperparathyroidism, unspecified (principal); J84.116 Cryptogenic organizing pneumonia; M81.0 Age-related osteoporosis without current pathological fracture; Z79.52 Long term (current) use of systemic steroids; E55.9 Vitamin D deficiency, unspecified; Z13.29 Encounter for screening for other suspected endocrine disorder
CPT/HCPCS: 36415; 80053; 82306; 82330; 82340; 82652; 83735; 83970; 84100; 84439; 84443

== ENCOUNTER → 2023-02-08 | Outpatient (CLI) | payer MEDICARE, SELFPAY ==
[2023-02-08 11:29] LABS: Absolute Lymphocyte Count 1.36 X10^3/uL (0.83-4.51); Absolute Neutrophil Count 2.7 X10^3/uL (2.0-7.7); Basophil# 0.04 X10^3/uL; Basophil% 0.9 % (0-1); Eosinophil# 0.07 X10^3/uL; Eosinophils% 1.6 % (0-5); Hematocrit 43.6 % (37-47); Lymphocyte # 1.36 X10^3/ul (0.83-4.51); Lymphocyte % 30.4 % (19-41); Mean Corp Hgb Conc 29.8 g/dL (32-36); Mean Corpuscular Hgb 28.7 pg (27.0-32.0); Mean Corpuscular Volume 96.2 fL (81-99); Mean Platelet Vol. 10.1 fl (6.2-12.0); Monocyte% 6.7 % (0-10); NRBC Flagged by Analyzer 0 % (0-5); Neutrophil # 2.67 X10^3/uL (2.7-7.7); Neutrophil % 59.7 % (47-70); Platelet Count 160 K/mm3 (150-450); RBC Distribution Width CV 13.6 % (11.6-14.6); RBC Distribution Width SD 48.4 fl (35.1-43.9); Red Blood Count 4.53 M/mm3 (4.2-5.4); White Blood Count 4.5 K/mm3 (4.4-11.0)
[2023-02-08 11:52] LABS: AST(SGOT) 25 U/L (15-37); Alanine Aminotransfer ALT/SGPT 22 U/L (13-56); Albumin, Serum 3.5 g/dL (3.2-5.0); Alkaline Phosphatase 67 U/L (45-117); Bilirubin, Direct 0.09 mg/dL (0.00-0.30); Globulin 2.8 g/dL (2.2-4.2); Protein, Total 6.3 g/dL (6.4-8.2)
== END | disposition home or self-care (01) ==
LOC: LAB 10:19
PROVIDERS: PCP Internal Medicine; Referring Provider Dermatology; Visit Provider Dermatology
DX: Z79.899 Other long term (current) drug therapy (principal)
CPT/HCPCS: 36415; 80076; 85025

== ENCOUNTER 2023-02-21 05:27 | Day surgery (SDC) | payer MEDICARE, SELFPAY ==
[2023-02-21 06:09] VITALS: BP 127/80; PULSE 76; RESP 16; TEMP 36.4; O2SAT 97; BMI 24.5
[2023-02-21] MEDS: Lactated Ringers 1,000 ML 15 ML IV (06:14)
--- NOTE | 2023-02-21 06:23 | HP.PCM_ITS ---
History and Physical Date of Admission: 02/21/23 62 F who presents to the office today for [facility] ED 4.4.20 abdominal pain. Zofran administered and effective. CellCept stopped. ? Biochemical CBC (plt L88), coag, CMP (K+L3.2), CPK, lipase, CMV without pertinent abnormality. ? AST H60-ALT H58-AP 72, EBV IgG +? platelets and LFT normalized following this draw. ? CT abd/pel lung granuloma/atelectasis; diffuse fatty liver; splenomegaly 15.73cm; chronic mild gastric wall thickening. *BGI established 10.31.23 with need for screening colonoscopy. Reports sensation of food lodging in epigastric region with pain for several hours, resolves with time, meat/bread is most likely culprit; has occurred approximately 3 times in the last year. History of cystocele (repaired 32 years prior) again rectocele and BM difficulty with incomplete evacuation and decreased caliber hard stools, lack of BM for several days and followed by urgent loose stools with urgency related incontinence. Notes pelvic floor dysfunction; has not undergone pelvic floor therapy. Has not had rectocele repair discussion as she has been told she is not a candidate for surgery (orthopedics) because inability to take certain antibiotics. ROS Const Constitutional: No other Exam Const General: cooperative, healthy appearing and no acute distress Nutritional Appearance: average body habitus Orientation: alert, awake and oriented x3 Chest Chest palpation & inspection: normal inspection of the chest and normal palpation of entire chest wall (Separate right anterior lower rib cage tenderness to palpation) Resp Effort & Inspection: normal respiratory effort and able to speak in complete sentences Auscultation: Bilateral: Clear to Auscultation Cardio Palpation: normal PMI Rate: regular rate Rhythm: regular rhythm Heart Sounds: S1 normal, S2 normal, no gallops, no murmurs and no rubs Pulses: radial pulses present GI Inspection: normal to inspection Palpation: soft Skin General: no rashes or lesions noted Neuro General: patient alert, patient awake and patient oriented x3 Cognition: normal cognition Speech: speech normal Psych Appearance: grossly normal Mental Status: mental status grossly normal Mood: congruent mood Affect: normal affect Speech and Movement: speech and movement normal Attitude: cooperative Thought Process: normal Thought Content: normal Judgment: judgment good Quality Reporting Tobacco Screening ([facility] 138) Smoking Status: Never smoker Assessment and Plan Assessment and Plan (1) Colon cancer screening: Status: Chronic (2) Rectocele: Status: Chronic Plan: 62-year-old with 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 In particular the small airways. She also has a past medical history of asthma. Both with controlled on medications. She also has a possible medical history of lupus, rheumatoid arthritis and possible Sjogren syndrome. She has been on Plaquenil Lyrica and Plaquenil with very good control. 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 She developed rectocele and cystocele approximately 30 years ago. Cystocele was repaired but the rectocele was not. She has episodes of intermittent fecal incontinence. She denies any blood per rectum. She had a colonoscopy approximately [address] Castro[address] At that time she had a upper and lower endoscopy for some blood in her stool. Both test were normal. She does have intermittent esophageal dysphagia after stopping PPI therapy approximately a year and a half ago. She was on steroids at that time. She denies any odynophagia. She says she has had several episodes of intermittent food getting stuck in particular breads and meats. She denies any history of hiatal hernia or Schatzki's ring. She does not know of any previous diagnosis of eosinophilic disease in her GI tract. She will undergo an upper and lower endoscopy to evaluate upper and lower GI tract. She was explained alternatives, risk, benefits include not withstanding bleeding, infection, sepsis, perforation, need for emergent surgery . She will have an ASA of 3. We will take biopsies in the esophagus, stomach and small bowel along with colon. I have examined the patient and the H&P has been reviewed. There are no clinical changes since date of exam.
--- NOTE | 2023-02-21 06:30 | EGD_PTH ---
PATIENT: KEYANNA PATTON LOC: EN U#:[id number] AGE/SX: 62/F ROOM: RE02/21/[address]: Dr. Juan Anderson DO : 1960 BED: DIS: 02/21/2023 SPEC #: [id number] RECD: 02/21/23 11:57 STATUS: DORA ANDREW #: [id number] MYRIAM: 02/21/23 06:[address]: Juan Anderson DEPT: SURGICAL PATHOLOGY RECD BY: Gloria Marquez ENTERED: 02/21/23 11:57 SP TYPE: EGD BIOPSY ANDREW DR: Dr. Yaa Gonzalez MD Tissues: Esophageal mucous membrane Procedures: Special Stain Group II Surgery Specimen Level IV Alcian Blue/PAS (control) HEADER OPERATION: Colonoscopy, EGD with biopsy PRE-OP DIAGNOSIS: Colon cancer screening, rectocele TISSUE SUBMITTED: Distal esophagus biopsy MICROSCOPIC DIAGNOSIS Distal esophagus, biopsy: Gastroesophageal junctional mucosa with chronic inflammation. Focal changes of reflux. No evidence of goblet cell metaplasia. See comment. AM:siddhartha 02/23/2023 COMMENT Alcian blue/PAS stain with matched control supports the above diagnosis. MICROSCOPIC DESCRIPTION Slides are reviewed. GROSS DESCRIPTION Received in fixative is one container labeled with the patient's name and designated distal esophagus biopsy. The specimen consists of multiple irregular fragments of light benítez soft tissue that in aggregate measure 0.5 x 0.5 x 0.1 cm. The specimen is totally submitted in one cassette. / SJ:siddhartha 02/21/2023 TC:3 CPT: 20863, 98279
[2023-02-21 06:58] VITALS: BP 108/67; BP 127/80; PULSE 81; RESP 18; TEMP 36.5; O2SAT 98
[2023-02-21 07:00] VITALS: BP 111/56; BP 127/80; PULSE 80; RESP 16; O2SAT 98
--- NOTE | 2023-02-21 07:00 | OP.CCLET_ITS ---
02/21/2023 Yaa Gonzalez [facility] [address] [place] [address] Re : Upper GI endoscopy procedure for Alba Eli Dear Dr. Gonzalez This procedure was performed on Tuesday, February 21, 2023. My impressions and recommendations are as follows: Impressions : - LA Grade B reflux esophagitis with no bleeding. Biopsied. - Moderate Schatzki ring. Dilated. - Medium-sized hiatal hernia. - No gross lesions in the second portion of the duodenum. Recommendations : - Discharge patient to home. - Resume previous diet. - Continue present medications. - Await pathology results. My findings are described in the full procedure note, which is enclosed. If I can be of further assistance, please feel free to contact me at . Sincerely, Juan Anderson, 02/21/2023 6:59:32 AM This report has been signed electronically.
--- NOTE | 2023-02-21 07:00 | OP.EGD_ITS ---
Patient Name: Alba Eli Procedure Date: 02/21/2023 6:18 AM Date of : 1960 Age: 62 Procedure: Upper GI endoscopy Indications: Dysphagia, Heartburn Providers: Juan Anderson DO Referring MD: Juan Anderson DO Medicines: Monitored Anesthesia Care Patient Profile: This is a 62 year old female. Refer to note in patient chart for documentation of history and physical. Patient has symptoms of acute dysphagia and chronic heartburn. Complications: No immediate complications. Procedure: Pre-Anesthesia Assessment: - Prior to the procedure, a History and Physical was performed, and patient medications and allergies were reviewed. The patient is competent. The risks and benefits of the procedure and the sedation options and risks were discussed with the patient. All questions were answered and informed consent was obtained. Patient identification and proposed procedure were verified by the physician in the pre-procedure area. Mental Status Examination: alert and oriented. Airway Examination: normal oropharyngeal airway and neck mobility. Respiratory Examination: clear to auscultation. CV Examination: normal. Prophylactic Antibiotics: The patient does not require prophylactic antibiotics. Prior Anticoagulants: The patient has taken no anticoagulant or antiplatelet agents. ASA Grade Assessment: II - A patient with mild systemic disease. After reviewing the risks and benefits, the patient was deemed in satisfactory condition to undergo the procedure. The anesthesia plan was to use monitored anesthesia care (MAC). Immediately prior to administration of medications, the patient was re-assessed for adequacy to receive sedatives. The heart rate, respiratory rate, oxygen saturations, blood pressure, adequacy of pulmonary ventilation, and response to care were monitored throughout the procedure. The physical status of the patient was re-assessed after the procedure. After obtaining informed consent, the endoscope was passed under direct vision. Throughout the procedure, the patient's blood pressure, pulse, and oxygen saturations were monitored continuously. The Colonoscope was introduced through the mouth, and advanced to the second part of duodenum. The upper GI endoscopy was accomplished without difficulty. The patient tolerated the procedure well. Scope In: 6:39:20 AM Scope Out: 6:42:23 AM Total Procedure Duration Time 0 hours 3 minutes 3 seconds Findings: LA Grade B (one or more mucosal breaks greater than 5 mm, not extending between the tops of two mucosal folds) esophagitis with no bleeding was found 35 to 38 cm from the incisors. Biopsies were taken with a cold forceps for histology. Verification of patient identification for the specimen was done. Estimated blood loss was minimal. A moderate Schatzki ring was found at the gastroesophageal junction. A guidewire was placed and the scope was withdrawn. Dilation was performed with a Savary dilator with no resistance at 45 Fr. The dilation site was examined and showed moderate mucosal disruption. Estimated blood loss was minimal. A medium-sized hiatal hernia was present. No other significant abnormalities were identified in a careful examination of the stomach. No gross lesions were noted in the second portion of the duodenum. Impression: - LA Grade B reflux esophagitis with no bleeding. Biopsied. - Moderate Schatzki ring. Dilated. - Medium-sized hiatal hernia. - No gross lesions in the second portion of the duodenum. Recommendation: - Discharge patient to home. - Resume previous diet. - Continue present medications. - Await pathology results. Procedure Code(s): --- Professional --- 48257, Esophagogastroduodenoscopy, flexible, transoral; with insertion of guide wire followed by passage of dilator(s) through esophagus over guide wire 35510, 59,51, Esophagogastroduodenoscopy, flexible, transoral; with biopsy, single or multiple CPT copyright 2021 [employer] [employer]. All rights reserved. The codes documented in this report are preliminary and upon trailers and motor homes salesperson review may be revised to meet current compliance requirements. Juan Anderson DO 02/21/2023 6:59:32 AM This report has been signed electronically. Number of Addenda: 0 Note Initiated On: 02/21/2023 6:18 AM
--- NOTE | 2023-02-21 07:02 | OP.COLON_ITS ---
Patient Name: Alba Eli Procedure Date: 02/21/2023 6:42 AM Date of : 1960 Age: 62 Procedure: Colonoscopy Indications: Screening for colorectal malignant neoplasm Providers: Juan Anderson DO Referring MD: Juan Anderson DO Medicines: Monitored Anesthesia Care Patient Profile: This is a 62 year old female. Refer to note in patient chart for documentation of history and physical. Patient has symptoms of acute dysphagia and chronic heartburn. Last Colonoscopy: more than 10 years ago. Complications: No immediate complications. Procedure: Pre-Anesthesia Assessment: - Prior to the procedure, a History and Physical was performed, and patient medications and allergies were reviewed. The patient is competent. The risks and benefits of the procedure and the sedation options and risks were discussed with the patient. All questions were answered and informed consent was obtained. Patient identification and proposed procedure were verified by the physician in the pre-procedure area. Mental Status Examination: alert and oriented. Airway Examination: normal oropharyngeal airway and neck mobility. Respiratory Examination: clear to auscultation. CV Examination: normal. Prophylactic Antibiotics: The patient does not require prophylactic antibiotics. Prior Anticoagulants: The patient has taken no anticoagulant or antiplatelet agents. ASA Grade Assessment: II - A patient with mild systemic disease. After reviewing the risks and benefits, the patient was deemed in satisfactory condition to undergo the procedure. The anesthesia plan was to use monitored anesthesia care (MAC). Immediately prior to administration of medications, the patient was re-assessed for adequacy to receive sedatives. The heart rate, respiratory rate, oxygen saturations, blood pressure, adequacy of pulmonary ventilation, and response to care were monitored throughout the procedure. The physical status of the patient was re-assessed after the procedure. After I obtained informed consent, the scope was passed under direct vision. Throughout the procedure, the patient's blood pressure, pulse, and oxygen saturations were monitored continuously. The Colonoscope was introduced through the anus and advanced to the cecum, identified by appendiceal orifice and ileocecal valve. The colonoscopy was performed without difficulty. The patient tolerated the procedure well. The quality of the bowel preparation was good. The ileocecal valve, appendiceal orifice, and rectum were photographed. Scope In: 6:44:08 AM Scope Withdrawal Time 0 hours 5 minutes 42 seconds Scope Out: 6:53:19 AM Total Procedure Duration Time 0 hours 9 minutes 11 seconds Findings: The perianal and digital rectal examinations were normal. Two small-mouthed diverticula were found in the sigmoid colon. The exam was otherwise without abnormality on direct and retroflexion views. Impression: - Diverticulosis in the sigmoid colon. - The examination was otherwise normal on direct and retroflexion views. - No specimens collected. Recommendation: - Discharge patient to home. - Resume previous diet. - Continue present medications. - Repeat colonoscopy in 10 years for screening purposes. Procedure Code(s): --- Professional --- G0121, Colorectal cancer screening; colonoscopy on individual not meeting criteria for high risk CPT copyright 2021 [employer]. All rights reserved. The codes documented in this report are preliminary and upon striper spray gun review may be revised to meet current compliance requirements. Juan Anderson DO 02/21/2023 7:01:38 AM This report has been signed electronically. Number of Addenda: 0 Note Initiated On: 02/21/2023 6:42 AM
--- NOTE | 2023-02-21 07:02 | OP.CCLET_ITS ---
02/21/2023 Yaa Gonzalez [facility] [address] [place] [address] Re : Colonoscopy procedure for Alba Eli Dear Dr. Gonzalez This procedure was performed on Tuesday, February 21, 2023. My impressions and recommendations are as follows: Impressions : - Diverticulosis in the sigmoid colon. - The examination was otherwise normal on direct and retroflexion views. - No specimens collected. Recommendations : - Discharge patient to home. - Resume previous diet. - Continue present medications. - Repeat colonoscopy in 10 years for screening purposes. My findings are described in the full procedure note, which is enclosed. If I can be of further assistance, please feel free to contact me at . Sincerely, Juan Anderson, 02/21/2023 7:01:38 AM This report has been signed electronically.
[2023-02-21 07:05] VITALS: BP 113/52; BP 127/80; PULSE 78; RESP 16; O2SAT 100
[2023-02-21 07:10] VITALS: BP 120/60; BP 127/80; PULSE 71; RESP 16; TEMP 36.1; O2SAT 100
[2023-02-21 07:28] VITALS: BP 127/80
== END 2023-02-21 08:02 | disposition home or self-care (01) ==
LOC: EN 05:29 → AC 05:29
PROVIDERS: PCP Internal Medicine; Referring Provider Internal Medicine; Visit Provider Internal Medicine Gastroenterology
PROC: 0DJD8ZZ Inspection of Lower Intestinal Tract, Via Natural or Artificial Opening Endoscopic (ICD-10-PCS; CPT 45378; principal; 2023-02-21 06:25)
DX: Z12.11 Encounter for screening for malignant neoplasm of colon (principal); M06.9 Rheumatoid arthritis, unspecified; K44.9 Diaphragmatic hernia without obstruction or gangrene; K21.00 Gastro-esophageal reflux disease with esophagitis, without bleeding; K57.30 Diverticulosis of large intestine without perforation or abscess without bleeding; R13.10 Dysphagia, unspecified; N81.6 Rectocele; L93.2 Other local lupus erythematosus; Z79.899 Other long term (current) drug therapy; K22.2 Esophageal obstruction
CPT/HCPCS: G0121; 43239; 43248; 88305; 88313; J7120; J2405

== ENCOUNTER → 2023-03-16 | Outpatient (CLI) | payer MEDICARE, SELFPAY ==
--- NOTE | 2023-03-16 12:31 | BD_ITS ---
STUDY: DUAL ENERGY X-RAY ABSORPTIOMETRY / DXA REASON FOR EXAM: Female, 62 years old. M810 TECHNIQUE: Bone Mineral Density (BMD) measurements of lumbar spine and bilateral hips were obtained. COMPARISON: Comparison is made with prior study dated January 21, 2021. FINDINGS: Lumbar Spine (L1-L4): g/cm2 (1.003) / T-score (-0.4) / Z-score (1.3) Findings are suggestive of normal bone density with a low fracture risk. Left Femur Total: g/cm2 (0.784) / T-score (-1.3) / Z-score (-0.1) Left Femoral Neck: g/cm2 (0.638) / T-score (-1.9) / Z-score (-0.4) Right Femur Total: g/cm2 (0.788) / T-score (-1.3) / Z-score (-0.1) Right Femoral Neck: g/cm2 (0.776) / T-score (-0.7) / Z-score (0.8) The T-Scores on the most recent prior examination were: Lumbar Spine (L1-L4): There has been improvement of bone density since the previous examination. Left Femur Total: which represents an improvement of 2.9%. Right Femur Total: which represents an improvement of 3.7%. BD/Dexa Bone Density Study IMPRESSION: The patient is considered osteopenic as outlined below according to World Matthew Organization (WHO) criteria with a moderate fracture risk. There has been improvement of bone density since the previous examination. Reference Information: The T-score is the number of standard deviations above or below the standard which is normal for young adults at their peak bone mineral density. The World Health Organization (WHO) interprets the T-scores as follows: Above -1 Normal bone density Between -1 and -2.5 Osteopenia Equal to / or below -2.5 Osteoporosis As a practical clinical guideline, osteopenia may be graded as follows: Mild -1 through -1.5 Moderate -1.6 through -2.0 Severe -2.1 through -2.4 The Z-score is the number of standard deviations above or below age-matched controls. A Z-score of less than -1.5 would be considered abnormal. References: 1. NIH Osteoporosis and Related Bone Diseases www osteo.org 2. International Society for Clinical Densitometry www iscd.org 3. National Osteoporosis Foundation www nof.org Electronically Signed: Jatin Urrutia MD at 14:24 EST ,
--- OUTSIDE RECORDS SUMMARY | 2023-03-16 12:42 | XMS RPT_ITS | CCD ---
Author Name Unknown Address [facility] [place] [address] Organization [facility] Care Team Providers Care Front Line Leader Name Role Phone Patti PLUNKETT, Nick Nicholas Primary Care Provider Catalino Garrison Unavailable SHELBY CRAIG Attending Unavailable NICK ARMSTRONG Primary Care Unavailable NICK ARMSTRONG Primary Care Unavailable NADIA GRIFFIN Referring Unavailable NICK ARMSTRONG Primary Care Unavailable NADIA GRIFFIN Attending Unavailable Allergies Allergy Classification Reported Allergen(s) Allergy Type Date of Onset Reaction(s) Facility (3 sources) ARIPiprazole; Translations: [ARIPIPRAZOLE] Drug Allergy 3 Other: See Comments [facility] (3 sources) Aspirin; Translations: [ASPIRIN] Drug Allergy 7 [facility] Work Phone: (3 sources) azaTHIOprine; Translations: [AZATHIOPRINE] Drug Allergy 0 Unknown [facility] (3 sources) Cephalexin; Translations: [CEPHALEXIN] Drug Allergy 6 Anaphylaxis [facility] (3 sources) Ciprofloxacin; Translations: [CIPROFLOXACIN] Drug Allergy 3 Vomiting [facility] (3 sources) Clindamycin; Translations: [CLINDAMYCIN HCL] Drug Allergy 7 [facility] Work Phone: (3 sources) Codeine; Translations: [CODEINE] Drug Allergy 2 Other: See Comments, GI Upset, Vomiting [facility] (3 sources) Esomeprazole; Translations: [ESOMEPRAZOLE MAGNESIUM] Drug Allergy 3 Hives [facility] (3 sources) Nitrofurantoin; Translations: [NITROFURANTOIN MACROCRYSTALLINE ] Drug Allergy [facility] Work Phone: (3 sources) Penicillins; Translations: [PENICILLINS] Propensity to adverse reactions 7 [facility] Work Phone: (3 sources) Sulfonamides (Antibiotic); Translations: [SULFA (SULFONAMIDE ANTIBIOTICS)] Propensity to adverse reactions 7 [facility] Work Phone: (3 sources) Spider Venom; Translations: [SPIDER VENOM] Drug Allergy Anaphylaxis [facility] Medications Completed/Discontinued Medications Medication Drug Class(es) Dates Sig (Normalized) Sig (Original) betamethasone 0.5 mg/ml topical cream (2 sources) Corticosteroid Start: 06-03-2022 betamethasone dipropionate (DIPROSONE) 0.05 % cream Apply 1 application to affected area twice daily. 0 06/03/2022 Active Problems Active Problems Problem Classification Problem Date Documented Da te Episodic/Chronic Acquired foot deformities (1 source) Acquired left hallux varus; Translations: [Hallux varus (acquired), left foot] Chronic Acquired foot deformities (1 source) Tailor's bunion of left foot; Translations: [Bunionette of left foot] Episodic Fracture of lower limb (1 source) Closed fracture of phalanx of foot; Translations: [Displaced unspecified fracture of left lesser toe(s), initial encounter for closed fracture] Episodic Other and unspecified benign neoplasm (1 source) Neuroma; Translations: [Benign neoplasm of peripheral nerves and autonomic nervous system, unspecified] Episodic Other lower respiratory disease (2 sources) Cryptogenic organizing pneumonia; Translations: [Cryptogenic organizing pneumonia] Onset: 05-17-2019 05-17-2019 Chronic Past or Other Problems Problem Classification Problem Date Documented Da te Episodic/Chronic Other acquired deformities (1 source) Unspecified acquired deformity of left lower leg; Translations: [Deformity of left foot] Onset: 08-31-2022 Episodic Other screening for suspected conditions (not mental disorders or infectious disease) (2 sources) Mammography abnormal; Translations: [Other abnormal and inconclusive findings on diagnostic imaging of breast] Onset: 12-22-2006 12-22-2006 Episodic Results Test Name Value Interpretation Reference Range Facil ity Vital Signs Date Time Vital Sign Value Performing Clinician Faci lity 02-16-2023 13:56-0500 Body height 163.5 cm Shelby Craig MD Work Phone: [facility] 02-16-2023 13:56-0500 Body weight 67.59 kg Shelby Craig MD Work Phone: [facility] 02-16-2023 13:56-0500 Diastolic blood pressure 68 mm[Hg] Shelby Craig MD Work Phone: [facility] 02-16-2023 13:56-0500 Systolic blood pressure 108 mm[Hg] Shelby Craig MD Work Phone: [facility] Encounters Encounter Date Encounter Type Care Provider Facility Start: 02-16-2023 End: 02-16-2023 ambulatory SHELBY CRAIG Facility:[facility] Start: 02-16-2023 End: 02-16-2023 Patient encounter procedure Shelby Craig MD Work Phone: OB/Gynecology Procedures Date Procedure Procedure Detail Performing Clinician Start: 03-17-2022 Mammography Nadia Cobb Work Phone: Plan of Treatment Date Care Activity Detail Author Start: 02-09-2026 PAP TESTING PAP TESTING [facility] Start: 02-09-2026 Screening for malign ant neoplasm of cervix Pap Testing [facility] Start: 08-18-2023 Urine microalbumin profile [facility] Start: 03-17-2023 Mammography MAMMOGRAM [facility] Start: 03-17-2023 Screening for malign ant neoplasm of breast Mammogram Screening [facility] Start: 11-05-2022 Covid-19 Vaccine ( season) Covid-19 Vaccine () [facility] Start: 03-07-2022 DEPRESSION ASSESSMENT DEPRESSION ASS ESSMENT [facility] Start: 2018 RSV Vaccine (1 - 1-d ose 60+ series) RSV Vaccine (1 - 1-dose 60+ series) [facility] Start: 02-19-2015 PNEUMOCOCCAL (2 - PP SV23 if available, else PCV20) PNEUMOCOCCAL (2 - PPSV23 if available, else PCV20) [facility] Start: 10-28-2003 COLOGUARD (FIT-DNA) COLOGUARD (FIT-D NA) [facility] Start: 10-28-2003 Colonoscopy COLONOSCOPY [facility] Start: 10-28-2003 COLORECTAL CANCER SCREENING COLORECTAL CANCER SCREENING [facility] Start: 10-28-[address] COLONOGRAPHY [facility] Start: 10-28-2003 DIABETES SCREEN DIABETES SCREEN [facility] Start: 10-28-2003 Diabetes Screening Diabetes Screenin g [facility] Start: 10-28-2003 FECAL OCCULT BLOOD FECAL OCCULT BLOO D [facility] Start: 10-28-2003 Lipid panel Lipid Screening [facility] Start: 10-28-2003 LIPID SCREEN LIPID SCREEN [facility] Start: 10-28-2003 Screening for malign ant neoplasm of colon [facility] Start: 10-28-2003 SIGMOIDOSCOPY SIGMOIDOSCOPY [facility] Start: 1988 HPV TESTING HPV TESTING [facility] Start: 1988 Screening for malign ant neoplasm of cervix HPV Testing [facility] Start: 1977 SHINGRIX VACCINE (1 of 2) SHINGRIX V ACCINE (1 of 2) [facility] Start: 1976 HEPATITIS C SCREENING HEPATITIS C [facility] Start: 1976 Hepatitis C screening Hepatitis C [facility] Start: 1976 HIV SCREENING HIV SCREENING [facility] Start: 1976 HIV screening [facility] Immunizations Immunization Date Immunization Notes Care Provider Xoch[facility]l [facility] 01-29-2023 Influenza, injectabl e, Madin [place] Canine Kidney, preservative free, quadrivalent Shelby Craig MD Work Phone: [facility] Work Phone: 2022 pneumococcal (PCV20) vaccine, 20 valent (PREVNAR 20) Shelby Craig MD Work Phone: [facility] Work Phone: 01-01-2022 influenza, injectabl e, quadrivalent, preservative free Shelby Craig MD Work Phone: [facility] Work Phone: 12-25-2014 pneumococcal conjuga te vaccine, 13 valent Nadia Griffin Work Phone: [facility] 08-17-2013 tetanus toxoid, redu long diphtheria toxoid, and acellular pertussis vaccine, adsorbed Nadia Griffin Work Phone: [facility] 01-21-2013 pneumococcal conjuga te vaccine, 13 valent Nadia Griffin Work Phone: [facility] 03-07-1991 hepatitis B vaccine, adult dosage Nadia Griffin Work Phone: [facility] Payers Date Payer Category Payer Medicare MMO MEDICARE MMO [employer] HMO [id number] 2020-Present [phone] [address] [place] [address] O [id number] 2020 Unknown [id number] Social History Date Type Detail Facility Start: 03-01-2017 End: 02-16-2023 Tobacco smoking status NHIS Never smoked tobacco [facility] Start: 03-01-2017 End: 02-16-2023 Tobacco use and exposure Smokeless tobacco non-user [facility] Start: 08-31-2022 End: 02-16-2023 Alcohol intake Current non-drinker of alcohol (finding) [facility] Start: 1960 Sex Assigned At Not on file [facility] Start: 08-31-2022 End: 02-16-2023 History of Social function [facility] Start: 08-31-2022 End: 02-16-2023 Tobacco use panel [facility] National Score (1-10 0), lower number is lower risk 50 [facility] Progress note 02-16-2023 Note Date & Type Note Facility 02-16-2023 Note HNO ID: [id number] Author: Shelby Craig MD Service: ? 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 Cryptogenic organizing pneumonia (HCC) 05/17/2019 Hyperparathyroid (HCC) Mitral valve disorders Osteoporosis Unspecified asthma(493.90) PAST SURGICAL HISTORY Procedure Laterality Date BREAST BIOPSY CORE 01/03/2007 U/S needle core left breast bx CORRECT BUNION,SIMPLE 1979 Bunion LUNG BIOPSY 04/2012 BOOP OSTEOT W/WO LNGTH SHRT/CORRJ METAR XCP 1ST TOE 1978 PAST SURGICAL HISTORY OF 05/2006 nasal polypectomy PAST SURGICAL HISTORY OF 12/1992 bladder suspension PAST SURGICAL HISTORY OF 2000 nasal polypectomy REMV CATARACT EXTRACAP,INSERT LENS Bilateral 12/2022 FAMILY HISTORY Problem Relation Age of Onset Hypertension Mother Seizures Mother Stroke Mother Rheumatologic disease Mother Sjogrens other (vitiligo) Mother Allergies Father Coronary Artery Disease Father Diabetes Father other (idiopathic pulmonary fibrosis) Father Allergies Sister Rheumatologic disease Sister Sjogrens Rheumatologic disease Sister SLE Breast Cancer Maternal Grandmother Hypertension Maternal Grandmother Seizures Maternal Grandmother Stroke Maternal Grandmother Cancer Maternal Grandfather Hypertension Maternal Grandfather Diabetes Paternal Grandfather SOCIAL HISTORY Social History Tobacco Use Smoking status: Never Smokeless tobacco: Never Vaping Use Vaping Use: Never used Substance Use Topics Alcohol use: No Drug use: No REVIEW OF SYSTEMS Abdomen: no changes Bladder: no new changes Breast: No breast lumps, nipple d/c, overlying skin changes, redness or skin retraction Allergies and current medication updated:Yes EXAM: BP 108/68 Ht 5' 4.37 (1.64m) Wt 149 lb (67.6kg) BMI 25.28 kg/(m2). GENERAL: pleasant, female in no apparent distress HEENT: Normocephalic, atraumatic, mucus membranes moist, and no lesions NECK: Supple, full range of motion, no adenopathy, and thyroid normal DERMATOLOGY: Normal, without lesions, non-icteric, and non-hirsute BREAST: soft, non-tender, symmetric, no dominant mass, normal nipple-areolar complex, no lymphadenopathy, and no nipple discharge CHEST: Normal inspiratory effort ABDOMEN: soft, non-tender, and no masses PELVIC: external genitalia normal, normal Bartholin's glands, urethra, [place]'s glands, no vulvar lesions, no cervical lesions, good vaginal support, physiologic discharge present, normal appearing perineal body and perianal region BIMANUAL: uterus normal size, shape and consistency, no adnexal masses, and non-tender RECTOVAGINAL: deferred. NEURO: alert and oriented x3,exam grossly non-focal EXTREMITIES: normal ASSESSMENT/PLAN: 1) Health maintenance: Pap/HPV up to date. Mammogram ordered Colon cancer screening: ordered and scheduled 2) Follow up one year or sooner as needed Shelby Craig MD [facility] History of Present illness Narrative 02-16-2023 Shelby Craig MD - 02/16/2023 1:48 PM EST Note Date & Type Note Facility 02-16-2023 History of Presen t illness Narrative Final Dressing Cutter offered: Patient declines. 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 Cryptogenic organizing pneumonia (HCC) 05/17/2019 Hyperparathyroid (HCC) Mitral valve disorders Osteoporosis Unspecified asthma(493.90) PAST SURGICAL HISTORY Procedure Laterality Date BREAST BIOPSY CORE 01/03/2007 U/S needle core left breast bx CORRECT BUNION,SIMPLE 1979 Bunion LUNG BIOPSY 04/2012 BOOP OSTEOT W/WO LNGTH SHRT/CORRJ METAR XCP 1ST TOE 1978 PAST SURGICAL HISTORY OF 05/2006 nasal polypectomy PAST SURGICAL HISTORY OF 12/1992 bladder suspension PAST SURGICAL HISTORY OF 2000 nasal polypectomy REMV CATARACT EXTRACAP,INSERT LENS Bilateral 12/2022 FAMILY HISTORY Problem Relation Age of Onset Hypertension Mother Seizures Mother Stroke Mother Rheumatologic disease Mother Sjogrens other (vitiligo) Mother Allergies Father Coronary Artery Disease Father Diabetes Father other (idiopathic pulmonary fibrosis) Father Allergies Sister Rheumatologic disease Sister Sjogrens Rheumatologic disease Sister SLE Breast Cancer Maternal Grandmother Hypertension Maternal Grandmother Seizures Maternal Grandmother Stroke Maternal Grandmother Cancer Maternal Grandfather Hypertension Maternal Grandfather Diabetes Paternal Grandfather SOCIAL HISTORY Social History Tobacco Use Smoking status: Never Smokeless tobacco: Never Vaping Use Vaping Use: Never used Substance Use Topics Alcohol use: No Drug use: No REVIEW OF SYSTEMS Abdomen: no changes Bladder: no new changes Breast: No breast lumps, nipple d/c, overlying skin changes, redness or skin retraction Allergies and current medication updated:Yes EXAM: BP 108/68 Ht 5' 4.37 (1.64m) Wt 149 lb (67.6kg) BMI 25.28 kg/(m^2). GENERAL: pleasant, female in no apparent distress HEENT: Normocephalic, atraumatic, mucus membranes moist, and no lesions NECK: Supple, full range of motion, no adenopathy, and thyroid normal DERMATOLOGY: Normal, without lesions, non-icteric, and non-hirsute BREAST: soft, non-tender, symmetric, no dominant mass, normal nipple-areolar complex, no lymphadenopathy, and no nipple discharge CHEST: Normal inspiratory effort ABDOMEN: soft, non-tender, and no masses PELVIC: external genitalia normal, normal Bartholin's glands, urethra, [place]'s glands, no vulvar lesions, no cervical lesions, good vaginal support, physiologic discharge present, normal appearing perineal body and perianal region BIMANUAL: uterus normal size, shape and consistency, no adnexal masses, and non-tender RECTOVAGINAL: deferred. NEURO: alert and oriented x3,exam grossly non-focal EXTREMITIES: normal ASSESSMENT/PLAN: 1) Health maintenance: Pap/HPV up to date. Mammogram ordered Colon cancer screening: ordered and scheduled 2) Follow up one year or sooner as needed Shelby Craig MD documented in this encounter [facility] Progress note 08-31-2022 Note Date & Type Note Facility 08-31-2022 Note HNO ID: [id number] Author: Nadiausha Griffin Service: ? Author Type: Physician Type: Progress Notes Filed: 08/31/2022 12:07 PM Note Text: Initial Podiatric Office Visit: Chief Complaint: This 61 year old female who presents with chief complaint:left foot pain HPI Patient presents to clinic for evaluation of left foot. Patient complains of pain to the lateral aspect of left 5th metatarsal and the pain has been present x 6-9 months. She states that she has large bump to the side of the left foot makes it difficult to get shoes on. She has history of bunion surgery on both feet and her left great toe does not touch the ground. She states in addition to her great toe deformity, her lesser toes deviate outwards . She is here to discuss options. 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 betamethasone dipropionate (DIPROSONE) 0.05 % cream Apply 1 application to affected area twice daily. Clobetasol Propionate 0.05 % sham Apply 1 application to affected area once daily. pregabalin (LYRICA) 50 mg capsule Take 100 mg by mouth four times daily. hydrOXYchloroQUINE (PLAQUENIL) 200 mg tablet Take 300 mg by mouth once daily. denosumab (PROLIA SUBCUTANEOUS) Inject subcutaneously. Every 6 months mycophenolate Mofetil (CELLCEPT) 500 mg tablet Take 1,000 mg by mouth twice daily. cyanocobalamin, vitamin B-12, (VITAMIN B-12 ORAL) Take 1,000 mg by mouth once daily. cholecalciferol, vitamin D3, (VITAMIN D3 ORAL) Take 50,000 Units by mouth one time a week. fluticasone-vilanterol (BREO ELLIPTA) 100-25 mcg/dose inhaler Inhale 1 Inhalation as instructed once daily. LEVALBUTEROL HCL (XOPENEX INHALATION) Inhale 1 Puff as instructed as needed. sertraline (ZOLOFT) 100 mg ORAL Tab TAKE 2 TABLETS DAILY fluticasone (FLONASE) 50 mcg/Actuation NASAL SprA 2 PUFFS DAILY traMADol (ULTRAM) 50 mg tablet Take 1 tablet by mouth as needed. (Patient not taking: No sig reported) naltrexone (TREXAN) 50 mg tablet Take 1 tablet by mouth once daily. (Patient not taking: Reported on 08/31/2022) predniSONE (DELTASONE) 20 mg tablet Take 1 tablet by mouth once daily. (Patient not taking: Reported on 08/31/2022) calcium/magnesium/vit D3 (HEALTHY BONE FORMULA ORAL) Take 3 tablets by mouth once daily. (Patient not taking: No sig reported) tiotropium bromide (SPIRIVA RESPIMAT) 1.25 mcg/actuation mist Inhale 2 Puffs as instructed once daily. (Patient not taking: No sig reported) FLUTICASONE/VILANTEROL (BREO ELLIPTA INHALATION) Inhale as instructed once daily. (Patient not taking: Reported on 08/31/2022) omeprazole (PRILOSEC) 20 mg capsule Take 20 mg by mouth once daily. (Patient not taking: Reported on 08/31/2022) predniSONE (DELTASONE) 1 mg tablet Take 4 mg by mouth once daily. (Patient not taking: Reported on 08/31/2022) fexofenadine (KIMBERLY) 180 mg ORAL Tab Take one(1) tablet daily. (Patient not taking: Reported on 08/31/2022) No current facility-administered medications for this visit. ALLERGIES Allergen Reactions Ciprofloxacin Vomiting Spider Venom Anaphylaxis Codeine Other: See Comments, GI Upset, Vomiting Esomeprazole Magnes* Hives Abilify [Aripiprazo* Other: See Comments Lips went numb Aspirin Cleocin [Clindamyci* Imuran [Azathioprin* Unknown Keflex [Cephalexin] Anaphylaxis Macrodantin [Nitrof* Penicillins Sulfa (Sulfonamide * PAST SURGICAL HISTORY Procedure Laterality Date BREAST BIOPSY CORE 10/30/07 U/S needle core left breast bx CORRECT BUNION,SIMPLE 1979 Bunion LUNG BIOPSY 04/2012 BOOP OSTEOT W/WO LNGTH SHRT/CORRJ METAR XCP 1ST TOE 1978 PAST SURGICAL HISTORY OF 05/11 nasal polypectomy PAST SURGICAL HISTORY OF bladder suspension PAST SURGICAL HISTORY OF 2000 nasal polypectomy FAMILY HISTORY Problem Relation Age of Onset Hypertension Mother Seizures Mother Stroke Mother Rheumatologic disease Mother Sjogrens other (vitiligo) Mother Allergies Father Coronary Artery Disease Father Diabetes Father other (idiopathic pulmonary fibrosis) Father Allergies Sister Rheumatologic disease Sister Sjogrens Rheumatologic disease Sister SLE Breast Cancer Maternal Grandmother Hypertension Maternal Grandmother Seizures Maternal Grandmother Stroke Maternal Grandmother Cancer Maternal Grandfather Hypertension Maternal Gran (more content not included)... [facility] Progress note 08-31-2022 Note Date & Type Note Facility 08-31-2022 Note HNO ID: [id number] Author: Leyla Piper RN Service: ? Author Type: Registered Nurse Type: Progress Notes Filed: 08/31/2022 12:07 PM Note Text: AMB ROOMING INTAKE FLOWSHEET DATA Risk Screening Do you have concerns about personal safety or safety in the home?: No Pain Pain Level: 3 Pain Location: Foot-Left Description: Dull Duration Amount of Time: 8 Duration Units: Months Frequency: Intermittent Intervention/Comfort measure: Relaxation, Reposition Patient presents with: Left Foot - New, Pain Patient present for left foot pain. States that she has had foot pain for years and had previous surgeries on it. In the last 6-9 months she started developing pain at the base of her 5th toe when wearing closed shoes. [facility] Progress note 08-31-2022 Note Date & Type Note Facility 08-31-2022 Note HNO ID: [id number] Author: Jenna Estrada RT(R) Service: ? Author Type: Technologist Type: Progress Notes Filed: 08/31/2022 8:16 AM Note Text: Radiology Service Progress Note PATIENT NAME: lAba Eli DATE OF SERVICE: August 31, 2022 TIME: 8:15 AM PATIENT IDENTITY VERIFICATION COMPLETED USING TWO (2) IDENTIFIERS: Name and Date of confirmed by patient verbally. FALL SCREENING: Has the patient had 2 falls in the last year or 1 fall with injury or currently using an Ambulatory Assistive Device (Walker, Cane, Wheelchair, Crutches, etc.)? No PATIENT GENDER DATA: Female. status: : No status: NO. PATIENT RELEVANT IMPLANT DATA REVIEWED: Not Applicable RADIOLOGY DEPARTMENT: General X-ray: Exam(s) Completed: Lower Extremity X-Ray(s): Foot, Left and Wt. Bearing PERIPHERAL IV DATA: Not applicable SIGNED BY: RT Destinee(R) August 31, 2022 8:15 AM [facility] Instructions 08-31-2022 Patient Instructions Note Date & Type Note Facility 08-31-2022 Instructions Nadia Griffin - 08/31/2022 8:55 AM EDT Recommend firm sole shoe for fracture Recommend bunion pad for fifth toe documented in this encounter [facility] History of Present illness Narrative 08-31-2022 Nadia Griffin - 08/31/2022 8:39 AM Jose Piper RN - 08/31/2022 8:16 AM EDT Note Date & Type Note Facility 08-31-2022 History of Presen t illness Narrative Initial Podiatric Office Visit: Chief Complaint: This 61 year old female who presents with chief complaint:left foot pain HPI Patient presents to clinic for evaluation of left foot. Patient complains of pain to the lateral aspect of left 5th metatarsal and the pain has been present x 6-9 months. She states that she has large bump to the side of the left foot makes it difficult to get shoes on. She has history of bunion surgery on both feet and her left great toe does not touch the ground. She states in addition to her great toe deformity, her lesser toes deviate outwards . She is here to discuss options. 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 betamethasone dipropionate (DIPROSONE) 0.05 % cream Apply 1 application to affected area twice daily. Clobetasol Propionate 0.05 % sham Apply 1 application to affected area once daily. pregabalin (LYRICA) 50 mg capsule Take 100 mg by mouth four times daily. hydrOXYchloroQUINE (PLAQUENIL) 200 mg tablet Take 300 mg by mouth once daily. denosumab (PROLIA SUBCUTANEOUS) Inject subcutaneously. Every 6 months mycophenolate Mofetil (CELLCEPT) 500 mg tablet Take 1,000 mg by mouth twice daily. cyanocobalamin, vitamin B-12, (VITAMIN B-12 ORAL) Take 1,000 mg by mouth once daily. cholecalciferol, vitamin D3, (VITAMIN D3 ORAL) Take 50,000 Units by mouth one time a week. fluticasone-vilanterol (BREO ELLIPTA) 100-25 mcg/dose inhaler Inhale 1 Inhalation as instructed once daily. LEVALBUTEROL HCL (XOPENEX INHALATION) Inhale 1 Puff as instructed as needed. sertraline (ZOLOFT) 100 mg ORAL Tab TAKE 2 TABLETS DAILY fluticasone (FLONASE) 50 mcg/Actuation NASAL SprA 2 PUFFS DAILY traMADol (ULTRAM) 50 mg tablet Take 1 tablet by mouth as needed. (Patient not taking: No sig reported) naltrexone (TREXAN) 50 mg tablet Take 1 tablet by mouth once daily. (Patient not taking: Reported on 08/31/2022) predniSONE (DELTASONE) 20 mg tablet Take 1 tablet by mouth once daily. (Patient not taking: Reported on 08/31/2022) calcium/magnesium/vit D3 (HEALTHY BONE FORMULA ORAL) Take 3 tablets by mouth once daily. (Patient not taking: No sig reported) tiotropium bromide (SPIRIVA RESPIMAT) 1.25 mcg/actuation mist Inhale 2 Puffs as instructed once daily. (Patient not taking: No sig reported) FLUTICASONE/VILANTEROL (BREO ELLIPTA INHALATION) Inhale as instructed once daily. (Patient not taking: Reported on 08/31/2022) omeprazole (PRILOSEC) 20 mg capsule Take 20 mg by mouth once daily. (Patient not taking: Reported on 08/31/2022) predniSONE (DELTASONE) 1 mg tablet Take 4 mg by mouth once daily. (Patient not taking: Reported on 08/31/2022) fexofenadine (KIMBERLY) 180 mg ORAL Tab Take one(1) tablet daily. (Patient not taking: Reported on 08/31/2022) No current facility-administered medications for this visit. ALLERGIES Allergen Reactions Ciprofloxacin Vomiting Spider Venom Anaphylaxis Codeine Other: See Comments, GI Upset, Vomiting Esomeprazole Magnes* Hives Abilify [Aripiprazo* Other: See Comments Lips went numb Aspirin Cleocin [Clindamyci* Imuran [Azathioprin* Unknown Keflex [Cephalexin] Anaphylaxis Macrodantin [Nitrof* Penicillins Sulfa (Sulfonamide * PAST SURGICAL HISTORY Procedure Laterality Date BREAST BIOPSY CORE 01/03/07 U/S needle core left breast bx CORRECT BUNION,SIMPLE 1979 Bunion LUNG BIOPSY 04/2012 PRIMO VARGAS W/WO LNGTH SHRT/CORRJ METAR XCP 1ST TOE 1978 PAST SURGICAL HISTORY OF 05/11 nasal polypectomy PAST SURGICAL HISTORY OF bladder suspension PAST SURGICAL HISTORY OF 2000 nasal polypectomy FAMILY HISTORY Problem Relation Age of Onset Hypertension Mother Seizures Mother Stroke Mother Rheumatologic disease Mother Sjogrens other (vitiligo) Mother Allergies Father Coronary Artery Disease Father Diabetes Father other (idiopathic pulmonary fibrosis) Father Allergies Sister Rheumatologic disease Sister Sjogrens Rheumatologic disease Sister SLE Breast Cancer Maternal Grandmother Hypertension Maternal Grandmother Seizures Maternal Grandmother Stroke Maternal Grandmother Cancer Maternal Grandfather Hypertension Maternal Grandfather Diabetes Paternal Grandfather Social History Tobacco Use Smoking status: Never Smokeless tobacco: Never Vaping Use Vaping Use: Never used Substance Use Topics Alcohol use: No Drug use: No REVIEW OF SYSTEMS GENERAL: Negative for Malaise, significant weight loss, fever RESPIRATORY: Negative for cough, wheezing and shortness of breath CARDIOVASCULAR: Negative for chest pain, leg swelling and palpitations GI: Negative for abdominal discomfort, blood in stools or black stools and change in bowel habits : Negative for dysuria, frequency and incontinence MUSCULOSKELETAL: Negative for joint pain or swelling, back pain, and muscle pain. SKIN: Negative for lesions, rash, and itching. HEMATOLOGY/LYMPHOLOGY Negative for prolonged bleeding, bruising easily, and swollen nodes. ENDOCRINE: Negative for cold or heat intolerance, polyuria, polydipsia and goiter. NEURO: negative Physical Exam: Constitutional: Pt is a well developed 61 year old female who is alert, oriented and cooperative Eyes: Following during examination. No redness or drainage. Respiratory: RR normal and nonlabored. Even breathing. No evidence of distress or shortness of breath. Psychology: Patient is engaged during conversation. Normal affect and mood. Does not appear depressed or anxious during encounter. Vascular: Dorsalis pedis and posterior tibial pulses faintly palpable as b/l Capillary Fill time < 5 seconds to digits 1-5 b/l Skin temperature warm to warm proximal to distal b/l Hair growth present to digits Neurological: intact light touch/epicritic sensation b/l intact protective sensation no significant neurological deficits Dermatological: Nails 1-5 b/l appear normal. Webspaces clean and dry 1-4 b/l. Skin appears well hydrated and supple. good color, texture, turgor. No open lesions present. No callosities present. Musculoskeletal/Orthopaedic: Patient has pain to palpation of left 5th toe and to lateral aspect of left 5th metatarsal Foot type is neutral structurally AJ ROM is full with knee extended and flexed 1st MPJ is decreased when loaded and no pain or crepitus are noted with ROM. Patient has varus deformity of left great toe. Moderate tailors bunion of left foot MTJ, STJ are full and free of pain and crepitus. +5/5 muscle strength dorsiflexion, plantarflexion, inversion, eversion b/l Radiographs: 3 views left foot ordered August 31, 2022: I have personally reviewed and interpreted these XR myself: age indertimant fracture of left 5th toe proximal phalanx. There is varus deformity of left first ray. Moderate tailors bunion ASSESSMENT: (S92.502A) Closed fracture of phalanx of left fifth toe, initial encounter (primary encounter diagnosis) (M21.622) Tailor's bunion of left foot (M20.32) Hallux varus (acquired), left foot (D36.10) Neuroma PLAN: 1. History and physical examination performed. 2. XR reviewed with patient and interpreted today 3. Discussed left 5th toe pain. Suspect age indeterminant fracture of the left 5th toe. Offered surgical shoe but she elected to continue with firm sole shoe 4. Discussed tailors bunion. Could try gel padding. Other options discussed include surgery. She is not interested in surgery 5. Discussed hallux varus. If she were to elect for suregery for the tailors bunion, could consider fusion of left 1st mtpj with likely extensor tendon lengthening. 6. Discussed likely neuroma of left 2nd interspace. No pain. She has elected to monitor. If pain develops, could consider injection. Nadia Griffin DPM Podiatry [address] [facility] [address] Dept: [phone] Dept AMB ROOMING INTAKE FLOWSHEET DATA Risk Screening Do you have concerns about personal safety or safety in the home?: No Pain Pain Level: 3 Pain Location: Foot-Left Description: Dull Duration Amount of Time: 8 Duration Units: Months Frequency: Intermittent Intervention/Comfort measure: Relaxation, Reposition Patient presents with: Left Foot - New, Pain Patient present for left foot pain. States that she has had foot pain for years and had previous surgeries on it. In the last 6-9 months she started developing pain at the base of her 5th toe when wearing closed shoes. documented in this encounter [facility] Evaluation note Note Date & Type Note Facility documented in this encounter [facility] Evaluation note Note Date & Type Note Facility documented in this encounter [facility] Summary Purpose Family History No Family History Records Found Advance Directives No Advanced Directives Records Found Additional Source Comments Source Comments (unrecognize d section and content) In the event this informatio n is protected by the Federal Confidentiality of Alcohol and Drug Abuse Patient Records regulations: The Federal rules restrict any use of the information to criminally investigate or prosecute any alcohol or drug abuse patient[facility] event this information is protected by the Federal Confidentiality of Alcohol and Drug Abuse Patient Records regulations: The Federal rules restrict any use of the information to criminally investigate or prosecute any alcohol or drug abuse patient.[facility] Reason for Visit (unrecogniz ed section and content) Reason Onset Date Comments Yearly Exam 02/16/2023 Care Teams (unrecognized sec tion and content) Front Line Leader Relationship Specialty Start Date End Date Nick Armstrong MD PCP - General Family Medicine 11/26/16 Catalino Hutson [address] [place] [address] Radiology Interventional Physician Internal Medicine 05/16/19 INFORMATION SOURCE (unrecogn ized section and content) FOR RECORDS PERTAINING TO PATIENTS WHO ARE OR HAVE BEEN ENROLLED IN A CHEMICAL DEPENDENCY/SUBSTANCEABUSE PROGRAM, SOME INFORMATION MAY BE OMITTED. This clinical summary was aggregated from multiple sources. Caution should be exercised in using it in the provision of clinical care. This summary normalizes information from multiple sources, and as a consequence, information in this document may materially change the coding, format and clinical context of patient data. In addition, data may be omitted in some cases. CLINICAL DECISIONS SHOULD BE BASED ON THE PRIMARY CLINICAL RECORDS. [employer] [facility]. provides no warranty or guarantee of the accuracy or completeness of information in this document.
== END | disposition home or self-care (01) ==
LOC: OPBD 12:26
PROVIDERS: PCP Internal Medicine; Referring Provider Internal Medicine Endocrinology, Diabetes & Metabolism; Visit Provider Internal Medicine Endocrinology, Diabetes & Metabolism
DX: E21.3 Hyperparathyroidism, unspecified (principal); M81.0 Age-related osteoporosis without current pathological fracture
CPT/HCPCS: 77080

== ENCOUNTER → 2023-05-13 | Outpatient (CLI) | payer MEDICARE, SELFPAY ==
--- OUTSIDE RECORDS SUMMARY | 2023-05-13 08:47 | XMS RPT_ITS | CCD ---
Author Name Unknown Address [facility] hospital [address] [place] [address] Organization [facility] Care Team Providers Care Apprentice Instrument Technician Name Role Phone Patti PLUNKETT, Nick Nicholas Primary Care Provider 1( [phone] Catalino Garrison Unavailable SHELBY CRAIG Attending Unavailable NICK ARMSTRONG Primary Care Unavailable NICK ARMSTRONG Primary Care Unavailable NADIA GRIFFIN Referring Unavailable NICK ARMSTRONG Primary Care Unavailable NADIA GRIFFIN Attending Unavailable Allergies Allergy Classification Reported Allergen(s) Allergy Type Date of Onset Reaction(s) Facility (3 sources) ARIPiprazole; Translations: [ARIPIPRAZOLE] Drug Allergy 3 Other: See Comments [facility] (3 sources) Aspirin; Translations: [ASPIRIN] Drug Allergy 7 [facility] Work Phone: (3 sources) azaTHIOprine; Translations: [AZATHIOPRINE] Drug Allergy 0 Unknown [facility] (3 sources) Cephalexin; Translations: [CEPHALEXIN] Drug Allergy 6 Anaphylaxis [facility] (3 sources) Ciprofloxacin; Translations: [CIPROFLOXACIN] Drug Allergy 3 Vomiting [facility] (3 sources) Clindamycin; Translations: [CLINDAMYCIN HCL] Drug Allergy 7 [facility] Work Phone: (3 sources) Codeine; Translations: [CODEINE] Drug Allergy 2 Other: See Comments, GI Upset, Vomiting [facility] (3 sources) Esomeprazole; Translations: [ESOMEPRAZOLE MAGNESIUM] Drug Allergy 3 Hives [facility] (3 sources) Nitrofurantoin; Translations: [NITROFURANTOIN MACROCRYSTALLINE ] Drug Allergy [facility] Work Phone: (3 sources) Penicillins; Translations: [PENICILLINS] Propensity to adverse reactions [facility] Work Phone: (3 sources) Sulfonamides (Antibiotic); Translations: [SULFA (SULFONAMIDE ANTIBIOTICS)] Propensity to adverse reactions 7 [facility] Work Phone: (3 sources) Spider Venom; Translations: [SPIDER VENOM] Drug Allergy Anaphylaxis [facility] Medications Completed/Discontinued Medications Medication Drug Class(es) Dates [...] 163.5 cm Shelby Craig MD Work Phone: [facility] 02-16-2023 13:56-0500 Body weight 67.59 kg Shelby Craig MD Work Phone: [facility] 02-16-2023 13:56-0500 Diastolic blood pressure 68 mm[Hg] Shelby Craig MD Work Phone: [facility] 02-16-2023 13:56-0500 Systolic blood pressure 108 mm[Hg] Shelby Craig MD Work Phone: [facility] Encounters Encounter Date Encounter Type Care Provider Facility Start: 02-16-2023 End: 02-16-2023 ambulatory SHELBY CRAIG Facility:[facility] Start: 02-16-2023 End: 02-16-2023 Patient encounter procedure Shelby Craig MD Work Phone: OB/Gynecology Procedures Date Procedure Procedure Detail Performing Clinician Start: 03-17-2022 Mammography Nadia Cobb Work Phone: Plan of Treatment Date Care Activity Detail Author Start: 02-09-2026 PAP TESTING PAP TESTING [facility] Start: 02-09-2026 Screening for malign ant neoplasm of cervix Pap Testing [facility] Start: 08-18-2023 Urine microalbumin profile [facility] Start: 03-17-2023 Mammography MAMMOGRAM [facility] Start: 03-17-2023 Screening for malign ant neoplasm of breast Mammogram Screening [facility] Start: 11-05-2022 Covid-19 Vaccine ( season) Covid-19 Vaccine () [facility] Start: 03-07-2022 DEPRESSION ASSESSMENT DEPRESSION ASS ESSMENT [facility] Start: 2018 RSV Vaccine (1 - 1-d ose 60+ series) RSV Vaccine (1 - 1-dose 60+ series) [facility] Start: 02-19-2015 PNEUMOCOCCAL (2 - PP SV23 if available, else PCV20) PNEUMOCOCCAL (2 - PPSV23 if available, else PCV20) [facility] Start: 10-28-2003 COLOGUARD (FIT-DNA) COLOGUARD (FIT-D NA) [facility] Start: 10-28-2003 Colonoscopy COLONOSCOPY [facility] Start: 10-28-2003 COLORECTAL CANCER SCREENING COLORECTAL CANCER SCREENING [facility] Start: 10-28-[address] COLONOGRAPHY [facility] Start: 10-28-2003 DIABETES SCREEN DIABETES SCREEN [facility] Start: 10-28-2003 Diabetes Screening Diabetes Screenin g [facility] Start: 10-28-2003 FECAL OCCULT BLOOD FECAL OCCULT BLOO D [facility] Start: 10-28-2003 Lipid panel Lipid Screening [facility] Start: 10-28-2003 LIPID SCREEN LIPID SCREEN [facility] Start: 10-28-2003 Screening for malign ant neoplasm of colon [facility] Start: 10-28-2003 SIGMOIDOSCOPY SIGMOIDOSCOPY [facility] Start: 1988 HPV TESTING HPV TESTING [facility] Start: 1988 Screening for malign ant neoplasm of cervix HPV Testing [facility] Start: 1977 SHINGRIX VACCINE (1 of 2) SHINGRIX V ACCINE (1 of 2) [facility] Start: 1976 HEPATITIS C SCREENING HEPATITIS C [facility] Start: 1976 Hepatitis C screening Hepatitis C [facility] Start: 1976 HIV SCREENING HIV SCREENING [facility] Start: 1976 HIV screening [facility] Immun[facility] Immunization Date Immunization Notes Care Provider Xochitl hartmann 01-29-2023 Influenza, injectabl e, Madin [place] Canine Kidney, preservative free, quadrivalent Shelby Craig MD Work Phone: [facility] Work Phone: 2022 pneumococcal (PCV20) vaccine, 20 valent (PREVNAR 20) Shelby Craig MD Work Phone: [facility] Work Phone: 01-01-2022 influenza, injectabl e, quadrivalent, preservative free Shelby Craig MD Work Phone: [facility] Work Phone: 12-25-2014 pneumococcal conjuga te vaccine, 13 valent Nadia Griffin Work Phone: [facility] 08-17-2013 tetanus toxoid, redu long diphtheria toxoid, and acellular pertussis vaccine, adsorbed Nadia Griffin Work Phone: [facility] 01-21-2013 pneumococcal conjuga te vaccine, 13 valent Nadia Griffin Work Phone: [facility] 03-07-1991 hepatitis B vaccine, adult dosage Nadia Griffin Work Phone: [facility] Payers Date Payer Category Payer Medicare MMO MEDICARE MMO [employer]ANT[employer] HMO [id number] 2020-Present [phone] [address] [place] [address] O [id number] 2020 Unknown [id number] Social History Date Type Detail Facility Start: 03-01-2017 End: 02-16-2023 Tobacco smoking status NHIS Never smoked tobacco [facility] Start: 03-01-2017 End: 02-16-2023 Tobacco use and exposure Smokeless tobacco non-user [facility] Start: 08-31-2022 End: 02-16-2023 Alcohol intake Current non-drinker of alcohol (finding) [facility] Start: 1960 Sex Assigned At Not on file [facility] Start: 08-31-2022 End: 02-16-2023 History of Social function [facility] Start: 08-31-2022 End: 02-16-2023 Tobacco use panel [facility] National Score (1-10 0), lower number is lower risk 50 [facility] Progress note 02-16-2023 Note Date & Type Note Facility 02-16-2023 Note HNO ID: [id number] Author: Shelby Craig MD Service: ? 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 Last Pap: 02/17/2021 normal HPV: negative History of abnormal pap: No Last mammogram: 2022 normal History of abnormal mammogram: no OB History T2 L2 SAB0 IAB0 Ectopic0 Multiple0 Live Births0 Yarn Washer History LMP: Postmenopausal Age at Menarche: Age at First : Age at Menopause: Yarn Washer History Comments: Sexual Activity: Not Currently; Male [...] external genitalia normal, normal Bartholin's glands, urethra, Kentfield's glands, no vulvar lesions, no cervical lesions, [...] or sooner as needed Shelby Craig MD [facility] History of Present illness Narrative 02-16-2023 Shelby Craig MD - 02/16/2023 1:48 PM EST Note Date & Type Note Facility 02-16-2023 History of Presen t illness Narrative Short Order Fry Cook offered: Patient declines. 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 Last Pap: 02/17/2021 normal HPV: negative History of abnormal pap: No Last mammogram: 2022 normal History of abnormal mammogram: no OB History T2 L2 SAB0 IAB0 Ectopic0 Multiple0 Live Births0 Yarn Washer History LMP: Postmenopausal Age at Menarche: Age at First : Age at Menopause: Yarn Washer History Comments: Sexual Activity: Not Currently; Male [...] W/WO LNGTH SHRT/CORRJ METAR XCP 1ST TOE 1979 PAST SURGICAL HISTORY OF 05/2006 nasal polypectomy [...] external genitalia normal, normal Bartholin's glands, urethra, Kentfield's glands, no vulvar lesions, no cervical lesions, [...] Shelby Craig MD documented in this encounter [facility] Progress note 08-31-2022 Note Date & Type Note Facility 08-31-2022 Note HNO ID: [id number] Author: Nadia Angela Service: ? Author Type: Physician Type: Progress [...] Date BOOP (bronchiolitis obliterans with organizing pneumonia) (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) Mitral valve disorders Osteoporosis Unspecified asthma(493.90) [...] needle core left breast bx CORRECT BUNION,SIMPLE 1978 Bunion LUNG BIOPSY 04/2012 BOOP OSTEOT W/WO [...] Hypertension Maternal Gran (more content not included)... [facility] Progress note 08-31-2022 Note Date & Type Note Facility 08-31-2022 Note HNO ID: [id number] Author: Leyla Piper RN Service: ? Author [...] her 5th toe when wearing closed shoes. [facility] Progress note 08-31-2022 Note Date & Type Note Facility 08-31-2022 Note HNO ID: [id number] Author: Jenna Estrada RT(R) Service: ? Author Type: Technologist Type: Progress Notes Filed: 08/31/2022 8:16 AM Note Text: Radiology Service Progress Note PATIENT NAME: Alba Eli DATE OF SERVICE: August 31, 2022 [...] RT Destinee(R) August 31, 2022 8:15 AM [facility] Instructions 08-31-2022 Patient Instructions Note Date & Type Note Facility 08-31-2022 Instructions Nadia Griffin - 08/31/2022 8:55 AM EDT Recommend firm sole shoe for fracture Recommend bunion pad for fifth toe documented in this encounter [facility] History of Present illness Narrative 08-31-2022 Nadia [...] Date BOOP (bronchiolitis obliterans with organizing pneumonia) (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) Mitral valve disorders Osteoporosis Unspecified asthma(493.90) [...] Griffin DPM Podiatry [address] [facility] [address] Dept: [phone] Dept AMB ROOMING INTAKE FLOWSHEET DATA Risk [...] wearing closed shoes. documented in this encounter [facility] Evaluation note Note Date & Type Note Facility documented in this encounter [facility] Evaluation note Note Date & Type Note Facility documented in this encounter [facility] Summary Purpose Family History No Family History [...] or prosecute any alcohol or drug abuse patient.[facility] the event this information is protected by the Federal Confidentiality of Alcohol and Drug Abuse Patient Records regulations: The Federal rules restrict any use of the information to criminally investigate or prosecute any alcohol or drug abuse patient.[facility] Reason for Visit (unrecogniz ed section and content) Reason Onset Date Comments Yearly Exam 02/16/2023 Care Teams (unrecognized sec tion and content) Apprentice Instrument Technician Relationship Specialty Start Date End Date Nick Armstrong MD PCP - General Family Medicine 11/26/16 Catalino Hutson [address] [place] [address] Cold Roll Inspector Internal Medicine 05/16/19 INFORMATION SOURCE (unrecogn ized [...] BE BASED ON THE PRIMARY CLINICAL RECORDS. [employer] [facility]. provides no warranty or guarantee of the accuracy or completeness of information in this document.
[2023-05-13 08:53] LABS: Absolute Neutrophil Count 1.7 X10^3/uL (2.0-7.7); Basophil# 0.02 X10^3/uL; Basophil% 0.6 % (0-1); Eosinophil# 0.11 X10^3/uL; Eosinophils% 3.1 % (0-5); Hematocrit 40.4 % (37-47); Hemoglobin 12.5 g/dL (12.0-15.0); Lymphocyte % 39.1 % (19-41); Mean Corp Hgb Conc 30.9 g/dL (32-36); Mean Corpuscular Hgb 29.4 pg (27.0-32.0); Mean Corpuscular Volume 95.1 fL (81-99); Mean Platelet Vol. 10.7 fl (6.2-12.0); Monocyte# 0.31 X10^3/uL; Monocyte% 8.7 % (0-10); NRBC Flagged by Analyzer 0 % (0-5); Neutrophil # 1.73 X10^3/uL (2.7-7.7); Neutrophil % 48.2 % (47-70); Platelet Count 134 K/mm3 (150-450); RBC Distribution Width CV 13.6 % (11.6-14.6); Red Blood Count 4.25 M/mm3 (4.2-5.4); White Blood Count 3.6 K/mm3 (4.4-11.0)
[2023-05-13 09:08] LABS: AST(SGOT) 25 U/L (15-37); Alanine Aminotransfer ALT/SGPT 21 U/L (13-56); Albumin, Serum 3.4 g/dL (3.2-5.0); Alkaline Phosphatase 72 U/L (45-117); Bilirubin, Direct 0.09 mg/dL (0.00-0.30); Globulin 2.6 g/dL (2.2-4.2)
[2023-05-13 09:48] LABS: Hepatitis B Surface Antibody Reactive; Hepatitis B Surface Antigen Non-Reactive (Nonreactive); Hepatitis C Antibody Non-Reactive (Nonreactive)
[2023-05-17 19:08] LABS: Hepatitis B Core Ab Total Negative (Negative); QNTFERON TB Mitogen Value > 10.00 IU/mL (.); QNTFERON TB Nil Value 0.06 IU/mL (.); QNTFERON TB2+ Ag Value 0.16 IU/mL (.); QNTIFERON TB Positive Criteria Negative (Negative)
== END | disposition home or self-care (01) ==
LOC: LAB 08:28
PROVIDERS: PCP Internal Medicine; Referring Provider Dermatology; Visit Provider Dermatology
DX: L40.8 Other psoriasis (principal); D89.89 Other specified disorders involving the immune mechanism, not elsewhere classified; M06.4 Inflammatory polyarthropathy; Z79.899 Other long term (current) drug therapy
CPT/HCPCS: 36415; 80076; 85025; 86480; 86704; 86706; 86803; 87340

== ENCOUNTER → 2023-07-01 | Outpatient (CLI) | payer MEDICARE, SELFPAY ==
--- NOTE | 2023-07-01 13:00 | RAD_ITS ---
STUDY: X-RAY CHEST REASON FOR EXAM: Female, 62 years old. EVAL L PLURAL EFFUSION TECHNIQUE: PA and lateral views of the chest. COMPARISON: August 30, 2022 FINDINGS: Redemonstration of surgical suture material of the left lower lobe. Mild hyperinflation and cystic emphysematous changes of both lungs. No visualized consolidation. No visualized pleural effusion. Normal size heart. Normal mediastinum and rojelio. Normal visualized pulmonary arteries. There is atherosclerotic calcification of the aortic arch with tortuosity. There are diffuse degenerative changes of the visualized thoracic spine. Normal visualized ribs, clavicles, and shoulders. There is no demonstrated abnormality of the visualized soft tissue structures of the upper abdomen. RAD/Chest PA and Lateral IMPRESSION: Degenerative changes, as described above. No demonstrated acute cardiopulmonary process. Electronically Signed: Dariusz Maguire MD at 15:05 EDT ,
== END | disposition home or self-care (01) ==
LOC: RAD.FUTURE 06-27 12:27 → RAD 12:54
PROVIDERS: PCP Internal Medicine; Referring Provider Internal Medicine Pulmonary Disease; Visit Provider Internal Medicine Pulmonary Disease
DX: J90 Pleural effusion, not elsewhere classified (principal)
CPT/HCPCS: 71046

== ENCOUNTER → 2023-07-07 | Outpatient (CLI) | payer MEDICARE, SELFPAY ==
--- NOTE | 2023-07-07 10:09 | BI_ITS ---
MAMMOGRAPHY - BILATERAL SCREENING REASON FOR EXAM: Female, 62 years old. Routine annual screening examination. PERTINENT HISTORY: Grandmother with breast cancer. TECHNIQUE: Digital bilateral breast jonnie (3D mammographic acquisition) in the CC and MLO projections. 2-D mediolateral oblique (MLO) and craniocaudad (CC) views of both breasts were obtained. CAD: Full Field Digital Mammography with Computer Added Detection was performed. COMPARISON: Comparison is made with prior study dated March 17, 2022 and March 02, 2021. FINDINGS: Breast Composition: There are scattered areas of fibroglandular density. There are no dominant masses or suspicious calcifications. No other significant abnormalities are identified. There has been no significant change since the prior study. BI/SCRN MAMM (CAD)W/JONNIE BILAT IMPRESSION: Stable bilateral screening mammogram. Yearly follow-up mammogram recommended. (A) ASSESSMENT CATEGORY: BIRADS Category 1: Negative. A letter regarding these results will be sent to the patient by the facility within 30 days. Approximately 10% of breast cancers are not detected by mammography. A normal mammogram should not delay biopsy of a clinically suspicious abnormality. [id number] Electronically Signed: Jatin Urrutia MD at 13:07 EDT ,
[2023-07-07 10:48] LABS: Absolute Lymphocyte Count 1.53 X10^3/uL (0.83-4.51); Absolute Neutrophil Count 2.8 X10^3/uL (2.0-7.7); Basophil# 0.03 X10^3/uL; Basophil% 0.6 % (0-1); Eosinophil# 0.09 X10^3/uL; Eosinophils% 1.9 % (0-5); Lymphocyte # 1.53 X10^3/ul (0.83-4.51); Lymphocyte % 31.7 % (19-41); Mean Corpuscular Volume 93.5 fL (81-99); Mean Platelet Vol. 10.7 fl (6.2-12.0); Monocyte# 0.31 X10^3/uL; Monocyte% 6.4 % (0-10); NRBC Flagged by Analyzer 0 % (0-5); Neutrophil # 2.83 X10^3/uL (2.7-7.7); Neutrophil % 58.8 % (47-70); Platelet Count 131 K/mm3 (150-450); RBC Distribution Width CV 13.6 % (11.6-14.6); RBC Distribution Width SD 46.6 fl (35.1-43.9); Red Blood Count 4.49 M/mm3 (4.2-5.4); White Blood Count 4.8 K/mm3 (4.4-11.0)
[2023-07-07 11:13] LABS: Vitamin B12 534 pg/mL (211-911); Vitamin D,25 Hydroxy 87.3 ng/mL
[2023-07-07 11:19] LABS: ALB/GLOB Ratio 1.2 RATIO (0.9-2.4); AST(SGOT) 24 U/L (15-37); Alanine Aminotransfer ALT/SGPT 23 U/L (13-56); Albumin, Serum 3.2 g/dL (3.2-5.0); Alkaline Phosphatase 88 U/L (45-117); Anion Gap 5 (5-15); BUN 21 mg/dL (7-18); BUN/Creat Ratio 28.3 RATIO (10-20); Calcium,Total 8.3 mg/dL (8.5-10.1); Chloride 109 mmol/L (98-107); Cholesterol 242 mg/dL (200); Creatinine, Serum 0.74 mg/dL (0.55-1.02); EST Glomerular Filtration Rate 84 mL/min (>60); Est Glom Filt Rate - Afr Amer 101 mL/min (>60); Free T3 2.3 pg/mL (2.18-3.98); Globulin 2.6 g/dL (2.2-4.2); Glucose 97 mg/dL (74-106); High Density Lipoprotein 58 mg/dL; Potassium 4.1 mmol/L (3.5-5.1); Protein, Total 5.8 g/dL (6.4-8.2); Sodium Level 142 mmol/L (136-145); Thyroid Stim Hormone (TSH) 1.39 uIU/mL (0.358-3.74); Triglycerides 151 mg/dL; Very Low Density Lipoprotein 30 mg/dL (5-40)
== END | disposition home or self-care (01) ==
LOC: OPBI 09:54
PROVIDERS: PCP Internal Medicine; Referring Provider Obstetrics & Gynecology; Visit Provider Obstetrics & Gynecology
DX: Z12.31 Encounter for screening mammogram for malignant neoplasm of breast (principal); Z80.3 Family history of malignant neoplasm of breast; J45.909 Unspecified asthma, uncomplicated; M19.90 Unspecified osteoarthritis, unspecified site; E53.8 Deficiency of other specified B group vitamins; E55.9 Vitamin D deficiency, unspecified; E78.00 Pure hypercholesterolemia, unspecified; Z13.220 Encounter for screening for lipoid disorders
CPT/HCPCS: 36415; 77063; 77067; 80053; 80061; 82306; 82607; 84439; 84443; 84481; 85025

== ENCOUNTER → 2023-08-08 | Outpatient (CLI) | payer MEDICARE, SELFPAY ==
[2023-08-10 04:08] LABS: Thyroid Peroxidase AB < 9 IU/mL (0-34)
== END | disposition home or self-care (01) ==
LOC: LAB 13:10
PROVIDERS: PCP Internal Medicine; Referring Provider Internal Medicine Endocrinology, Diabetes & Metabolism; Visit Provider Internal Medicine Endocrinology, Diabetes & Metabolism
DX: E21.3 Hyperparathyroidism, unspecified (principal); J84.116 Cryptogenic organizing pneumonia; M81.0 Age-related osteoporosis without current pathological fracture; E55.9 Vitamin D deficiency, unspecified
CPT/HCPCS: 36415; 86376

== ENCOUNTER → 2023-08-17 | Outpatient (CLI) | payer MEDICARE, SELFPAY ==
[2023-08-17 13:03] LABS: Hematocrit 41.1 % (37-47); Hemoglobin 12.7 g/dL (12.0-15.0); Mean Corp Hgb Conc 30.9 g/dL (32-36); Mean Corpuscular Hgb 29.3 pg (27.0-32.0); Mean Corpuscular Volume 94.9 fL (81-99); Mean Platelet Vol. 10.1 fl (6.2-12.0); Platelet Count 139 K/mm3 (150-450); RBC Distribution Width CV 13.6 % (11.6-14.6); RBC Distribution Width SD 47.4 fl (35.1-43.9); Red Blood Count 4.33 M/mm3 (4.2-5.4); White Blood Count 4.2 K/mm3 (4.4-11.0)
== END | disposition home or self-care (01) ==
LOC: LAB 12:51
PROVIDERS: PCP Internal Medicine; Referring Provider Internal Medicine Pulmonary Disease; Visit Provider Internal Medicine Pulmonary Disease
DX: R06.02 Shortness of breath (principal)
CPT/HCPCS: 36415; 85027

== ENCOUNTER → 2023-09-09 | Outpatient (CLI) | payer MEDICARE, SELFPAY ==
--- NOTE | 2023-09-09 13:40 | CT_ITS ---
STUDY: CT MAXILLOFACIAL SINUSES REASON FOR EXAM: Female, 62 years old. CHRONIC SINUSITIS RADIATION DOSAGE (If Supplied By Facility): CTDIvol = ( 28.14 ) mGy, DLP = ( 725.09 ) mGycm TECHNIQUE: The patient was scanned in a multi detector CT scanner. High resolution axial imaging was performed without the administration of intravenous contrast material. Sagittal and coronal images were reconstructed. Individualized dose optimization techniques were used for this CT. COMPARISON: None. FINDINGS: FRONTAL SINUSES: Normal aeration, without mucosal inflammatory disease. ETHMOIDAL SINUSES: Opacification of multiple ethmoid air cells. MAXILLARY SINUSES: Mucosal thickening and wall thickening in the maxillary sinuses consistent with chronic sinusitis. SPHENOIDAL SINUSES: Mucosal thickening of the sphenoid sinuses consistent with chronic sinusitis. Occluded ostiomeatal units bilaterally. Normal bilateral middle turbinates. Normal bilateral inferior turbinates. Normal midline nasal septum. There is patency of the bilateral nasal airways. The visualized osseous structures are normal. The visualized bilateral orbital contents are normal. CT/Sinus/Facial Bone IMPRESSION: 1. Chronic pansinusitis. 2. Occluded ostiomeatal units bilaterally. Electronically Signed: Everett Adhikari MD at 14:07 EDT ,
== END | disposition home or self-care (01) ==
LOC: CT 13:36
PROVIDERS: PCP Internal Medicine; Referring Provider Otolaryngology; Visit Provider Otolaryngology
DX: J32.8 Other chronic sinusitis (principal)
CPT/HCPCS: 70486; 70488

== ENCOUNTER → 2023-10-06 | Outpatient (CLI) | payer MEDICARE, SELFPAY ==
[2023-10-06 17:46] LABS: Absolute Lymphocyte Count 1.48 X10^3/uL (0.83-4.51); Absolute Neutrophil Count 2.2 X10^3/uL (2.0-7.7); Basophil# 0.03 X10^3/uL; Basophil% 0.7 % (0-1); Eosinophil# 0.08 X10^3/uL; Eosinophils% 1.9 % (0-5); Hematocrit 41.5 % (37-47); Hemoglobin 12.9 g/dL (12.0-15.0); Lymphocyte # 1.48 X10^3/ul (0.83-4.51); Lymphocyte % 35.7 % (19-41); Mean Corp Hgb Conc 31.1 g/dL (32-36); Mean Corpuscular Hgb 28.9 pg (27.0-32.0); Mean Corpuscular Volume 92.8 fL (81-99); Mean Platelet Vol. 10.9 fl (6.2-12.0); Monocyte# 0.31 X10^3/uL; Monocyte% 7.5 % (0-10); NRBC Flagged by Analyzer 0 % (0-5); Neutrophil # 2.23 X10^3/uL (2.7-7.7); Platelet Count 148 K/mm3 (150-450); RBC Distribution Width CV 13.3 % (11.6-14.6); RBC Distribution Width SD 45.1 fl (35.1-43.9); Red Blood Count 4.47 M/mm3 (4.2-5.4); White Blood Count 4.1 K/mm3 (4.4-11.0)
[2023-10-06 18:04] LABS: AST(SGOT) 24 U/L (15-37); Alanine Aminotransfer ALT/SGPT 16 U/L (13-56); Albumin, Serum 3.5 g/dL (3.2-5.0); Alkaline Phosphatase 86 U/L (45-117); Bilirubin, Direct 0.08 mg/dL (0.00-0.30); Globulin 2.6 g/dL (2.2-4.2); Protein, Total 6.1 g/dL (6.4-8.2)
== END | disposition home or self-care (01) ==
PROVIDERS: PCP Internal Medicine; Referring Provider Internal Medicine Pulmonary Disease; Visit Provider Dermatology
DX: J84.116 Cryptogenic organizing pneumonia (principal); M06.4 Inflammatory polyarthropathy; L40.8 Other psoriasis; D89.89 Other specified disorders involving the immune mechanism, not elsewhere classified; L30.9 Dermatitis, unspecified; Z79.899 Other long term (current) drug therapy
CPT/HCPCS: 36415; 80076; 85025

== ENCOUNTER 2023-10-10 09:00 | Outpatient (CLI) | payer MEDICARE, SELFPAY ==
--- NOTE | 2023-10-13 13:19 | EKG12_ITS ---
Test Reason : PREOP Blood Pressure : / mmHG Vent. Rate : 083 BPM Atrial Rate : 083 BPM P-R Int : 148 ms QRS Dur : 080 ms QT Int : 358 ms P-R-T Axes : 039 021 045 degrees QTc Int : 420 ms Normal sinus rhythm Normal ECG Confirmed by ROVERTO PLUNKETT, BELINDA ([id number]), subeditor GRIFFIN ROSE ([id number]) on 10/17/2023 8:35:00 AM Referred By: Sushant Busch Confirmed By:LAURA LAYNE MD
[2023-10-13 15:35] LABS: International Normalized Ratio 0.9; Prothrombin Time (Protime)PT. 12.6 SECONDS (11.7-14.9)
[2023-10-13 15:36] LABS: Partial Thromboplast Time 25.4 Seconds (24.1-36.2)
[2023-10-13 15:46] LABS: Anion Gap 5 (5-15); BUN 21 mg/dL (7-18); BUN/Creat Ratio 18.1 RATIO (10-20); Calcium,Total 9.1 mg/dL (8.5-10.1); Chloride 107 mmol/L (98-107); Creatinine, Serum 1.16 mg/dL (0.55-1.02); EST Glomerular Filtration Rate 50 mL/min (>60); Est Glom Filt Rate - Afr Amer 60 mL/min (>60); Glucose 66 mg/dL (74-106); Potassium 4.2 mmol/L (3.5-5.1); Sodium Level 141 mmol/L (136-145)
== END 2023-10-10 23:00 | disposition home or self-care (01) ==
LOC: SDC 05-09 21:23
PROVIDERS: Anesthesiology; PCP Internal Medicine; Referring Provider Otolaryngology; Visit Provider Otolaryngology
DX: Z01.810 Encounter for preprocedural cardiovascular examination (principal); Z01.818 Encounter for other preprocedural examination
CPT/HCPCS: 36415; 80048; 85610; 85730; 93005

== ENCOUNTER → 2023-10-13 | Outpatient (CLI) | payer MEDICARE, SELFPAY ==
--- NOTE | 2023-10-13 14:30 | US_ITS ---
STUDY: ULTRASOUND BREAST - RIGHT REASON FOR EXAM: Female, 62 years old. Breast pain TECHNIQUE: Axial and longitudinal images of the RIGHT breast were performed with a high resolution ultrasound transducer. # OF IMAGES: 80 COMPARISON: Screening mammogram 07/07/2023 FINDINGS: RIGHT Breast: Heterogeneous background echotexture. Multiple longitudinal and transverse ultrasound images of the right breast did not demonstrate a discrete solid or cystic mass most consistent with normal breast parenchyma.: US/Breast Complete Unilateral IMPRESSION: Normal right breast ultrasound. ASSESSMENT CATEGORY: BIRADS Category 1: Negative. A letter regarding these results will be sent to the patient by the facility within 30 days. Electronically Signed: Everett Adhikari MD at 8:26 EDT ,
== END | disposition home or self-care (01) ==
LOC: OPUS 13:15
PROVIDERS: PCP Internal Medicine; Referring Provider Internal Medicine; Visit Provider Internal Medicine
DX: N64.4 Mastodynia (principal)
CPT/HCPCS: 76641

== ENCOUNTER → 2023-12-12 | Outpatient (CLI) | payer MEDICARE, SELFPAY ==
--- NOTE | 2023-12-12 14:15 | MRI_ITS ---
EXAM: MR CERVICAL SPINE WITHOUT INTRAVENOUS CONTRAST CLINICAL INDICATION: Cervical radiculopathy TECHNIQUE: Multiplanar and multisequence MR images of the cervical spine without intravenous contrast were performed. COMPARISON: No relevant prior studies available. FINDINGS: VERTEBRAE: Alignment of the cervical vertebral bodies is normal. Normal vertebral body height. No bone marrow edema. INTERSPACES: Multilevel disc space narrowing and vertebral body hypertrophy. Multilevel facet arthropathy. SPINAL CORD: Unremarkable in signal and morphology. SOFT TISSUES: Normal. No prevertebral soft tissue swelling. LYMPH NODES: Normal. There is no cervical adenopathy. DISCS/SPINAL CANAL/NEURAL FORAMINA: C2-C3: Normal. Normal disc height and morphology. Normal spinal canal. Normal neuroforamina. C3-C4: No significant disc space narrowing. Mild disc bulging without spinal stenosis. Normal right neural foramen. Narrowing of the left neural foramen related to facet and uncinate joint hypertrophy. C4-C5: Moderate disc space narrowing with circumferential vertebral body hypertrophy. Mild impression on the thecal sac without significant spinal stenosis. Normal right neural foramen. Prominent narrowing of the left neural foramen related to facet arthropathy and uncinate joint hypertrophy. C5-C6: Prominent disc space narrowing with mild bony hypertrophy. No disc herniation. No significant spinal or neural foraminal stenosis. C6-C7: Prominent disc space narrowing. Disc osteophyte complex and posterior ligamentous redundancy cause mild spinal stenosis. Moderate narrowing of the neural foramina bilaterally related to uncinate joint hypertrophy. C7-T1: Normal disc height and morphology. Normal spinal canal. Normal neuroforamina. MRI/Spine Cervical (Routine) IMPRESSION: 1. Moderate multilevel spondylosis resulting in multilevel neural foraminal narrowing as described above. 2. Mild C6-7 spinal stenosis. Electronically Signed: Shravan Roth MD at 8:35 EDT ,
== END | disposition home or self-care (01) ==
PROVIDERS: PCP Internal Medicine; Referring Provider Internal Medicine; Visit Provider Internal Medicine
DX: M54.12 Radiculopathy, cervical region (principal)
CPT/HCPCS: 72141

== ENCOUNTER → 2023-12-19 | Outpatient (CLI) | payer MEDICARE, SELFPAY ==
[2023-12-19 09:18] LABS: Hematocrit 39.7 % (37-47); Hemoglobin 12.5 g/dL (12.0-15.0); Mean Corp Hgb Conc 31.5 g/dL (32-36); Mean Corpuscular Hgb 29.5 pg (27.0-32.0); Mean Corpuscular Volume 93.6 fL (81-99); Mean Platelet Vol. 10.2 fl (6.2-12.0); Platelet Count 145 K/mm3 (150-450); RBC Distribution Width SD 48.2 fl (35.1-43.9); Red Blood Count 4.24 M/mm3 (4.2-5.4)
== END | disposition home or self-care (01) ==
LOC: LAB 09:02
PROVIDERS: PCP Internal Medicine; Referring Provider Internal Medicine Pulmonary Disease; Visit Provider Internal Medicine Pulmonary Disease
DX: J84.116 Cryptogenic organizing pneumonia (principal)
CPT/HCPCS: 36415; 85027

== ENCOUNTER → 2024-02-06 | Outpatient (CLI) | payer MEDICARE, SELFPAY ==
[2024-02-06 10:45] LABS: ALB/GLOB Ratio 1.3 RATIO (0.9-2.4); AST(SGOT) 23 U/L (15-37); Alanine Aminotransfer ALT/SGPT 20 U/L (13-56); Albumin, Serum 3.4 g/dL (3.2-5.0); Alkaline Phosphatase 64 U/L (45-117); Anion Gap 2 (5-15); BUN 14 mg/dL (7-18); BUN/Creat Ratio 18.7 RATIO (10-20); Calcium,Total 8.6 mg/dL (8.5-10.1); Chloride 109 mmol/L (98-107); Cholesterol 204 mg/dL (200); Creatinine, Serum 0.75 mg/dL (0.55-1.02); EST Glomerular Filtration Rate 83 mL/min (>60); Est Glom Filt Rate - Afr Amer 100 mL/min (>60); Free T3 2.3 pg/mL (2.18-3.98); Globulin 2.6 g/dL (2.2-4.2); Glucose 89 mg/dL (74-106); High Density Lipoprotein 69 mg/dL; Potassium 4.5 mmol/L (3.5-5.1); Sodium Level 139 mmol/L (136-145); T4 Free Direct 0.82 ng/dL (0.76-1.46); Triglycerides 115 mg/dL; Very Low Density Lipoprotein 23 mg/dL (5-40)
[2024-02-06 10:52] LABS: PTHIN 106.6 pg/mL (18.4-80.1)
[2024-02-06 10:58] LABS: Vitamin D,25 Hydroxy 83.7 ng/mL
[2024-02-06 13:48] LABS: Hemoglobin A1c 4.9 % (3.8-5.6)
== END | disposition home or self-care (01) ==
LOC: LAB 09:14
PROVIDERS: PCP Internal Medicine; Referring Provider Internal Medicine Endocrinology, Diabetes & Metabolism; Visit Provider Internal Medicine Endocrinology, Diabetes & Metabolism
DX: E21.3 Hyperparathyroidism, unspecified (principal); J84.116 Cryptogenic organizing pneumonia; M81.0 Age-related osteoporosis without current pathological fracture; E55.9 Vitamin D deficiency, unspecified; E78.5 Hyperlipidemia, unspecified
CPT/HCPCS: 36415; 80053; 80061; 82306; 83036; 83970; 84439; 84443; 84481

== ENCOUNTER → 2024-02-13 | Outpatient (CLI) | payer MEDICARE, SELFPAY ==
--- NOTE | 2024-02-13 15:36 | RAD_ITS ---
STUDY: X-RAY CHEST REASON FOR EXAM: Female, 63 years old. left rib pain TECHNIQUE: Frontal and lateral views of the chest. COMPARISON: 07/01/2023. FINDINGS: The lungs are clear and expanded. There is no demonstrated pleural abnormality. Stable blunting of the left costophrenic angle. Post surgical changes seen in the left lung base, stable. Normal size heart. Normal mediastinum and rojelio. Normal visualized pulmonary arteries. Normal visualized aortic arch and descending thoracic aorta. Normal visualized thoracic spine. Normal visualized ribs, clavicles, and shoulders. There is no demonstrated abnormality of the visualized soft tissue structures of the upper abdomen. RAD/Chest PA and Lateral IMPRESSION: No definite acute or significant abnormality seen. Stable postsurgical changes in the left lung base. Electronically Signed: Malik Juares MD at 16:12 EST ,
== END | disposition home or self-care (01) ==
LOC: MTRAD 15:35
PROVIDERS: PCP Internal Medicine; Referring Provider Physician Assistant; Visit Provider Physician Assistant
DX: R07.9 Chest pain, unspecified (principal)
CPT/HCPCS: 71046

== ENCOUNTER → 2024-03-01 | Outpatient (CLI) | payer MEDICARE, SELFPAY ==
--- NOTE | 2024-03-01 11:12 | RAD_ITS ---
STUDY: X-RAY - UNILATERAL RIBS ( LEFT ) REASON FOR EXAM: Female, 63 years old. Fall, rib pain TECHNIQUE: 4 view(s) of the ribs. COMPARISON: None. FINDINGS: Normal visualized ribs without a demonstrated fracture. The visualized lung is clear and expanded. RAD/Ribs Unil 2V No CXR IMPRESSION: Normal x-ray examination of the ribs. Electronically Signed: Everett Adhikari MD at 17:40 EST ,
== END | disposition home or self-care (01) ==
LOC: RAD 11:06
PROVIDERS: PCP Internal Medicine; Referring Provider Internal Medicine; Visit Provider Internal Medicine
DX: S20.212A Contusion of left front wall of thorax, initial encounter (principal); W19.XXXA Unspecified fall, initial encounter
CPT/HCPCS: 71100

== ENCOUNTER → 2024-03-09 | Outpatient (CLI) | payer MEDICARE, SELFPAY ==
--- NOTE | 2024-03-09 10:25 | US_ITS ---
EXAM: US ABDOMEN LIMITED CLINICAL INDICATION: left abdominal pain TECHNIQUE: Real-time ultrasound of the abdomen with image documentation. COMPARISON: No relevant prior studies available. FINDINGS: KIDNEYS: Visualized portions of the left kidney appear normal. SPLEEN: Spleen is normal without splenomegaly. No focal masses identified. US/Spleen IMPRESSION: Normal spleen. Electronically Signed: Ruiz Ugalde MD at 5:10 EST ,
== END | disposition home or self-care (01) ==
LOC: US 10:24
PROVIDERS: PCP Internal Medicine; Referring Provider Internal Medicine; Visit Provider Internal Medicine
DX: R10.9 Unspecified abdominal pain (principal)
CPT/HCPCS: 76705

== ENCOUNTER → 2024-04-24 | Outpatient (CLI) | payer MEDICARE, SELFPAY ==
[2024-04-24 09:43] LABS: Absolute Lymphocyte Count 1.69 X10^3/uL (0.83-4.51); Absolute Neutrophil Count 2.3 X10^3/uL (2.0-7.7); Basophil# 0.02 X10^3/uL; Basophil% 0.4 % (0-1); Eosinophil# 0.12 X10^3/uL; Eosinophils% 2.7 % (0-5); Hematocrit 39.6 % (37-47); Hemoglobin 12.4 g/dL (12.0-15.0); Lymphocyte # 1.69 X10^3/ul (0.83-4.51); Lymphocyte % 37.5 % (19-41); Mean Corp Hgb Conc 31.3 g/dL (32-36); Mean Corpuscular Hgb 28.5 pg (27.0-32.0); Mean Platelet Vol. 10.2 fl (6.2-12.0); Monocyte# 0.33 X10^3/uL; Monocyte% 7.3 % (0-10); NRBC Flagged by Analyzer 0 % (0-5); Neutrophil # 2.34 X10^3/uL (2.7-7.7); Neutrophil % 51.9 % (47-70); Platelet Count 168 K/mm3 (150-450); RBC Distribution Width CV 12.9 % (11.6-14.6); RBC Distribution Width SD 42.7 fl (35.1-43.9); Red Blood Count 4.35 M/mm3 (4.2-5.4); White Blood Count 4.5 K/mm3 (4.4-11.0)
[2024-04-24 10:27] LABS: AST(SGOT) 28 U/L (15-37); Alanine Aminotransfer ALT/SGPT 22 U/L (13-56); Albumin, Serum 3.3 g/dL (3.2-5.0); Alkaline Phosphatase 76 U/L (45-117); Bilirubin, Direct 0.05 mg/dL (0.00-0.30); Globulin 2.9 g/dL (2.2-4.2); Protein, Total 6.2 g/dL (6.4-8.2)
== END | disposition home or self-care (01) ==
LOC: LAB 09:23
PROVIDERS: PCP Internal Medicine; Referring Provider Dermatology; Visit Provider Dermatology
DX: Z79.899 Other long term (current) drug therapy (principal)
CPT/HCPCS: 36415; 80076; 85025

== ENCOUNTER → 2024-06-20 | Outpatient (CLI) | payer MEDICARE, SELFPAY | END | disposition home or self-care (01) | LOC: LAB 14:06 | PROVIDERS: PCP Internal Medicine; Referring Provider Dermatology; Visit Provider Dermatology | DX: L40.8 Other psoriasis (principal); M06.4 Inflammatory polyarthropathy; D89.89 Other specified disorders involving the immune mechanism, not elsewhere classified; Z79.899 Other long term (current) drug therapy; L30.9 Dermatitis, unspecified | CPT/HCPCS: 36415; 86480 ==

== ENCOUNTER → 2024-07-06 | Outpatient (CLI) | payer MEDICARE, SELFPAY ==
[2024-07-06 09:24] LABS: Absolute Lymphocyte Count 1.32 X10^3/uL (0.83-4.51); Absolute Neutrophil Count 1.6 X10^3/uL (2.0-7.7); Basophil# 0.02 X10^3/uL; Basophil% 0.6 % (0-1); Eosinophil# 0.09 X10^3/uL; Eosinophils% 2.7 % (0-5); Hematocrit 40.6 % (37-47); Lymphocyte # 1.32 X10^3/ul (0.83-4.51); Lymphocyte % 39.6 % (19-41); Mean Corpuscular Hgb 29.6 pg (27.0-32.0); Mean Corpuscular Volume 92.5 fL (81-99); Mean Platelet Vol. 10.5 fl (6.2-12.0); Monocyte# 0.25 X10^3/uL; Monocyte% 7.5 % (0-10); NRBC Flagged by Analyzer 0 % (0-5); Neutrophil # 1.64 X10^3/uL (2.7-7.7); Neutrophil % 49.3 % (47-70); Platelet Count 141 K/mm3 (150-450); RBC Distribution Width CV 13.8 % (11.6-14.6); RBC Distribution Width SD 47.3 fl (35.1-43.9); Red Blood Count 4.39 M/mm3 (4.2-5.4); White Blood Count 3.3 K/mm3 (4.4-11.0)
[2024-07-06 09:58] LABS: AST(SGOT) 25 U/L (<=31); Alanine Aminotransfer ALT/SGPT 13 U/L (<=34); Alkaline Phosphatase 54 U/L (35-104); Anion Gap 9 (5-15); BUN 16 mg/dL (4-19); BUN/Creat Ratio 18.4 RATIO (10-20); Chloride 107 mmol/L (98-108); Cholesterol 227 mg/dL (<=200); Creatinine, Serum 0.86 mg/dL (0.70-1.20); EST Glomerular Filtration Rate 75 (>60); Free T3 2.5 pg/mL (2.18-3.98); Glucose 82 mg/dL (70-99); High Density Lipoprotein 59 mg/dL; Low Density Lipoprotein Calc. 147 mg/dL; Magnesium 2.4 mg/dL (1.5-2.2); Potassium 4.4 mmol/L (3.3-5.1); Protein, Total 6.1 g/dL (5.9-8.4); Sodium Level 141 mmol/L (133-145); Total Bilirubin 0.29 mg/dL (0.00-1.30); Triglycerides 104 mg/dL; Very Low Density Lipoprotein 21 mg/dL (5-40); Vitamin B12 348 pg/mL (180-914); Vitamin D,25 Hydroxy 43.6 ng/mL (30-100); cholesterol:hdl ratio screen 3.85
== END | disposition home or self-care (01) ==
LOC: LAB 08:41
PROVIDERS: PCP Internal Medicine; Referring Provider Internal Medicine; Visit Provider Internal Medicine
DX: R23.2 Flushing (principal); M19.90 Unspecified osteoarthritis, unspecified site; E78.00 Pure hypercholesterolemia, unspecified; Z13.220 Encounter for screening for lipoid disorders; E55.9 Vitamin D deficiency, unspecified; E53.8 Deficiency of other specified B group vitamins
CPT/HCPCS: 36415; 80053; 80061; 82306; 82607; 83735; 84439; 84443; 84481; 85025

== ENCOUNTER → 2024-07-16 | Outpatient (CLI) | payer MEDICARE, SELFPAY ==
--- NOTE | 2024-07-16 13:21 | BI_ITS ---
EXAM: SCRN MAMM (CAD)W/JONNIE BILAT DATE: 07/16/2024 CLINICAL HISTORY: F, Age 63 y/o , BREAST CANCER SCREENING BREAST CANCER RISK ASSESSMENT: Has not been calculated. TECHNIQUE: Bilateral screening digital breast tomosynthesis with 2D and 3D images. Computer aided detection. COMPARISON: Prior exam(s) dated 10/13/2023, 07/07/2023, and 03/17/2022. FINDINGS: TISSUE DENSITY: The breast tissue is almost entirely fatty. Bilateral Breast Mammographic Findings: There are no suspicious masses, suspicious clustered microcalcifications, architectural distortion or secondary signs of malignancy identified in either breast. BI/SCRN MAMM (CAD)W/JONNIE BILAT IMPRESSION: OVERALL FINAL ASSESSMENT: BIRADS 1 NEGATIVE RECOMMENDATION: Routine annual follow-up in 1 Year A letter with findings and recommendations will be mailed to the patient. Reading Location: [id number]
== END | disposition home or self-care (01) ==
LOC: OPBI 13:20
PROVIDERS: PCP Internal Medicine; Referring Provider Internal Medicine; Visit Provider Internal Medicine
DX: Z12.31 Encounter for screening mammogram for malignant neoplasm of breast (principal)
CPT/HCPCS: 77063; 77067

== ENCOUNTER → 2024-11-02 | Outpatient (CLI) | payer MEDICARE, SELFPAY ==
[2024-11-02 08:15] LABS: Mucous, Urine 0 SEEN /hpf (<or=2+); Squamous Epithelial Cells - UA 0 SEEN /hpf (5-10)
[2024-11-02 09:02] LABS: Color, Urine Yellow (Yellow); Glucose, Dipstick Normal (Normal); Ketone-Dipstick Negative (Negative); Leukocyte Esterase-Dipstick 500 /ul (Negative); Nitrite-Dipstick Negative (Negative); Occult Blood-Urine 10 /ul (Negative); Protein-Dipstick 30 mg/dl (Negative); Specific Gravity, Urine 1.020 (1.002-1.030); Urine Bilirubin Dipstick Negative (Negative)
[2024-11-02 09:10] LABS: Hematocrit 42.9 % (37-47); Hemoglobin 14.2 g/dL (12.0-15.0); Immature Granulocytes Count 0.010 X10^3/uL (0.0-0.0); Mean Corp Hgb Conc 33.1 g/dL (32-36); Mean Corpuscular Volume 91.1 fL (81-99); Mean Platelet Vol. 10.5 fl (6.2-12.0); NRBC Flagged by Analyzer 0 % (0-5); Platelet Count 144 K/mm3 (150-450); RBC Distribution Width CV 13.1 % (11.6-14.6); RBC Distribution Width SD 44.5 fl (35.1-43.9); Red Blood Count 4.71 M/mm3 (4.2-5.4); White Blood Count 4.5 K/mm3 (4.4-11.0)
[2024-11-02 09:14] LABS: Red Blood Cells-Urine 0-5 SEEN /hpf (0-5)
[2024-11-02 10:07] LABS: AST(SGOT) 26 U/L (<=31); Alanine Aminotransfer ALT/SGPT 14 U/L (<=34); Albumin, Serum 4.1 g/dL (3.4-4.8); Alkaline Phosphatase 58 U/L (35-104); Bilirubin, Direct 0.12 mg/dL (0.00-0.30); Cholesterol 229 mg/dL (<=200); Globulin 2.1 g/dL (2.2-4.2); Low Density Lipoprotein Calc. 140 mg/dL; Triglycerides 116 mg/dL; Very Low Density Lipoprotein 23 mg/dL (5-40); cholesterol:hdl ratio screen 3.47
[2024-11-02 10:07] LABS: CRP < 3.00 mg/L (0.0-3.0)
== END | disposition home or self-care (01) ==
LOC: LAB 08:09
PROVIDERS: Dermatology; PCP Internal Medicine; Referring Provider Internal Medicine Pulmonary Disease; Visit Provider Internal Medicine Pulmonary Disease
DX: Z79.899 Other long term (current) drug therapy (principal); J45.20 Mild intermittent asthma, uncomplicated
CPT/HCPCS: 36415; 80061; 80076; 81001; 85025; 85652; 86140; 87086

== ENCOUNTER → 2024-11-22 | Outpatient (CLI) | payer MEDICARE, SELFPAY ==
[2024-11-22 09:06] LABS: Hematocrit 40.9 % (37-47); Hemoglobin 13.1 g/dL (12.0-15.0); Immature Granulocytes Count 0.020 X10^3/uL (0.0-0.0); Mean Corp Hgb Conc 32.0 g/dL (32-36); Mean Corpuscular Volume 91.3 fL (81-99); Mean Platelet Vol. 10.3 fl (6.2-12.0); NRBC Flagged by Analyzer 0 % (0-5); Platelet Count 130 K/mm3 (150-450); RBC Distribution Width CV 13.2 % (11.6-14.6); RBC Distribution Width SD 45.0 fl (35.1-43.9); Red Blood Count 4.48 M/mm3 (4.2-5.4); White Blood Count 4.5 K/mm3 (4.4-11.0)
[2024-11-22 09:28] LABS: Color, Urine Yellow (Yellow); Glucose, Dipstick Normal (Normal); Ketone-Dipstick Negative (Negative); Leukocyte Esterase-Dipstick 500 /ul (Negative); Nitrite-Dipstick Negative (Negative); Occult Blood-Urine Negative /ul (Negative); Protein-Dipstick 15 mg/dl (Negative); Specific Gravity, Urine 1.020 (1.002-1.030); Urine Bilirubin Dipstick Negative (Negative)
[2024-11-22 09:29] LABS: Creatinine, Urine (random) 87.70 mg/dL (28.00-217.00)
[2024-11-22 09:39] LABS: PTHIN 52 pg/mL (11-61)
[2024-11-22 09:42] LABS: CRP < 3.00 mg/L (0.0-3.0)
[2024-11-22 10:41] LABS: AST(SGOT) 27 U/L (<=31); Alanine Aminotransfer ALT/SGPT 14 U/L (<=34); Albumin, Serum 3.9 g/dL (3.4-4.8); Alkaline Phosphatase 70 U/L (35-104); Anion Gap 12 (5-15); BUN 22 mg/dL (4-19); BUN/Creat Ratio 25.1 RATIO (10-20); Calcium,Total 9.0 mg/dL (7.6-11.0); Carbon Dioxide 22.8 mmol/L (21.0-32.0); Chloride 104 mmol/L (98-108); Free T3 2.6 pg/mL (2.18-3.98); Globulin 2.0 g/dL (2.2-4.2); Glucose 77 mg/dL (70-99); Potassium 4.4 mmol/L (3.3-5.1); Vitamin D,25 Hydroxy 48.7 ng/mL (30-100)
== END | disposition home or self-care (01) ==
PROVIDERS: Internal Medicine Endocrinology, Diabetes & Metabolism; Internal Medicine Pulmonary Disease; PCP Internal Medicine; Referring Provider Dermatology; Visit Provider Dermatology
DX: Z79.899 Other long term (current) drug therapy (principal)
CPT/HCPCS: 36415; 80053; 81002; 82306; 82570; 83970; 84439; 84443; 84481; 85025; 85652; 86140; 87086

== ENCOUNTER → 2024-12-18 | Outpatient (CLI) | payer MEDICARE, SELFPAY ==
[2024-12-18 09:17] LABS: Ionized Calcium Order ORDER TUBE
[2024-12-18 09:35] LABS: Hematocrit 42.8 % (37-47); Hemoglobin 13.6 g/dL (12.0-15.0); Immature Granulocytes Count 0.020 X10^3/uL (0.0-0.0); Mean Corp Hgb Conc 31.8 g/dL (32-36); Mean Corpuscular Volume 91.1 fL (81-99); Mean Platelet Vol. 10.6 fl (6.2-12.0); NRBC Flagged by Analyzer 0 % (0-5); Platelet Count 131 K/mm3 (150-450); RBC Distribution Width CV 13.4 % (11.6-14.6); RBC Distribution Width SD 44.8 fl (35.1-43.9); Red Blood Count 4.70 M/mm3 (4.2-5.4); White Blood Count 4.4 K/mm3 (4.4-11.0)
[2024-12-18 10:06] LABS: Creatinine, Urine (random) 66.40 mg/dL (28.00-217.00)
[2024-12-18 10:32] LABS: CORTISOL AM 20.20 ug/dL (6.02-18.40); Ferritin 62 ng/mL (22-378); Iron 49 ug/dL (50-170); Iron Binding Capacity,Total 297 ug/dL (250-450); Iron Binding Capacity,Unsat 248 ug/dL (228-428); Magnesium 2.3 mg/dL (1.5-2.2)
[2024-12-18 11:04] LABS: AST(SGOT) 25 U/L (<=31); Alanine Aminotransfer ALT/SGPT 14 U/L (<=34); Albumin, Serum 4.0 g/dL (3.4-4.8); Alkaline Phosphatase 75 U/L (35-104); Anion Gap 11 (5-15); BUN 19 mg/dL (4-19); BUN/Creat Ratio 25.8 RATIO (10-20); Calcium,Total 8.8 mg/dL (7.6-11.0); Carbon Dioxide 24.2 mmol/L (21.0-32.0); Chloride 107 mmol/L (98-108); Globulin 1.9 g/dL (2.2-4.2); Glucose 82 mg/dL (70-99); Potassium 4.2 mmol/L (3.3-5.1)
== END | disposition home or self-care (01) ==
PROVIDERS: Dermatology; PCP Internal Medicine; Referring Provider Internal Medicine Endocrinology, Diabetes & Metabolism; Visit Provider Internal Medicine Endocrinology, Diabetes & Metabolism
DX: E21.3 Hyperparathyroidism, unspecified (principal); J84.116 Cryptogenic organizing pneumonia; M81.0 Age-related osteoporosis without current pathological fracture; E55.9 Vitamin D deficiency, unspecified; L40.0 Psoriasis vulgaris
CPT/HCPCS: 36415; 80053; 82024; 82533; 82570; 82728; 83540; 83550; 83735; 84100; 85025

== ENCOUNTER → 2024-12-27 | Outpatient (CLI) | payer MEDICARE, SELFPAY ==
[2024-12-27 13:50] LABS: 24HR. Urine Creatinine 1130.4 mg/24 hr (740.0-1540.0)
[2025-01-03 20:08] LABS: Cortisol, Free 24Ur 12 ug/24 hr (6-42)
== END | disposition home or self-care (01) ==
PROVIDERS: PCP Internal Medicine; Referring Provider Internal Medicine Endocrinology, Diabetes & Metabolism; Visit Provider Internal Medicine Endocrinology, Diabetes & Metabolism
DX: R79.89 Other specified abnormal findings of blood chemistry (principal)
CPT/HCPCS: 81050; 82530; 82570